=== PATIENT | male | born 1960 | race Caucasian/White ===

== ENCOUNTER 2023-06-28 15:03 | Outpatient (CLI) | payer OTHER, MEDICARE, SELFPAY ==
--- NOTE | 2023-06-28 15:09 | XR_ITS ---
WS: [id number] Exam: XR cervical spine 3V* [id number] Date/Time of Exam: 06/28/2023 3:20 PM Reason For Exam: chronic neck pain No fracture or dislocation. Mild spondylosis from C5-C7. Mild facet DJD at all levels. Normal paraspi nal soft tissue structures. The odontoid is intact. IMPRESSION: 1. Mild degenerative changes. No fracture or malalignment.
== END 2023-06-28 15:04 | disposition home or self-care (01) ==
LOC: RAD 15:06
PROVIDERS: Family Provider Family Medicine; PCP Family Medicine; Visit Provider Family Medicine
DX: M47.812 Spondylosis without myelopathy or radiculopathy, cervical region (principal); G89.29 Other chronic pain; Z13.6 Encounter for screening for cardiovascular disorders; E11.00 Type 2 diabetes mellitus with hyperosmolarity without nonketotic hyperglycemic-hyperosmolar coma (NKHHC); R35.1 Nocturia
CPT/HCPCS: 72040; 80053; 80061; 82043; 83036; 84153; 85025

== ENCOUNTER 2023-07-04 13:48 | Outpatient (CLI) | payer MEDICARE, SELFPAY ==
--- NOTE | 2023-07-04 14:15 | USCV_ITS ---
[facility] Age: 63 Gender: M : 1960 Exam Date: 07/04/2023 14:09 Ordering Phys: Cherelle Meneses DO Technologist: CT Exam Location: [facility] [place] Indication: pvd Risk Factors: Previous Vascular Surgery: RIGHT LEFT BP: 134.0 / 76.00 BP: 142.0/ 77.00 0 0 Waveform Velocity (cm/s) Velocity (cm/s) Waveform Iliac Prox 88.0 Triphasic Iliac Mid 87.0 Triphasic Iliac Distal 95.1 Triphasic MEDICAL DEVICE ASSEMBLER 102.9 Triphasic SFA Prox 81.6 Triphasic SFA Mid 75.2 Triphasic SFA Dist 80.7 Triphasic POP 74.2 Triphasic INSTRUMENTATION FITTER 46.6 Biphasic DPA 61.1 Biphasic ELISEO 0.8 FINDINGS Resting ELISEO of 0.8 on the left side. Mild diffuse plaque in the femoral and popliteal artery on the left side Biphasic waveforms in the dorsalis pedis and posterior tibial arteries CONCLUSIONS 1. Abnormal resting ELISEO on the left side, suggestive of mild peripheral arterial disease 2. Abnormal arterial Doppler waveforms suggesting infrapopliteal disease Dr Milagro Dent MD [facility] (Electronically Signed) Final Date: 07 July 2023 15:02 S
== END 2023-07-04 13:49 | disposition home or self-care (01) ==
LOC: RAD 13:48
PROVIDERS: Family Provider Family Medicine; PCP Family Medicine; Visit Provider Family Medicine
DX: I73.9 Peripheral vascular disease, unspecified (principal)
CPT/HCPCS: 93926

== ENCOUNTER → 2023-07-17 11:14 | Outpatient (BNVA) | payer MEDICARE, SELFPAY | PROVIDERS: Family Provider Family Medicine; PCP Family Medicine; Visit Provider Podiatrist Foot & Ankle Surgery | DX: L84 Corns and callosities (principal); E11.00 Type 2 diabetes mellitus with hyperosmolarity without nonketotic hyperglycemic-hyperosmolar coma (NKHHC); I73.9 Peripheral vascular disease, unspecified; Z79.84 Long term (current) use of oral hypoglycemic drugs; Z79.4 Long term (current) use of insulin | CPT/HCPCS: 99213 ==

== ENCOUNTER → 2023-08-09 11:25 | Outpatient (BNVA) | payer MEDICARE, SELFPAY | PROVIDERS: Family Provider Family Medicine; PCP Family Medicine; Visit Provider Family Medicine | DX: R80.9 Proteinuria, unspecified (principal); F32.A Depression, unspecified; I10 Essential (primary) hypertension; E11.00 Type 2 diabetes mellitus with hyperosmolarity without nonketotic hyperglycemic-hyperosmolar coma (NKHHC); Z86.69 Personal history of other diseases of the nervous system and sense organs; I73.9 Peripheral vascular disease, unspecified | CPT/HCPCS: 84156 ==

== ENCOUNTER 2023-09-04 14:10 | Outpatient (CLI) | payer MEDICARE, SELFPAY ==
--- NOTE | 2023-09-04 14:30 | US_ITS ---
WS: [id number] ULTRASOUND RENAL TECHNIQUE: Ultrasound examination of both kidneys. CLINICAL INFORMATION: Proteinuria COMPARISON: None. FINDINGS: Technically difficult study due to bowel gas. RIGHT: Right kidney is normal in size and appearance. Echogenicity: Normal. Cortical thickness: 1.1 cm; Normal. Hydronephrosis: None. Perinephric fluid: None. Right kidney measures: 10.1 cm x 6.0 cm x 4.5 cm. LEFT: Left kidney is normal in size and appearance. Echogenicity: Normal. Cortical thickness: 1.1 cm; Normal. Hydronephrosis: None. Perinephric fluid: None. Left kidney measures: 9.1 cm x 5.3 cm x 4.7 cm. Normal visualized aorta. Slightly prominent prostate measuring 3.6 x 2.9 cm. Urine distended bladder measuring 330 cc. Patient without urge to urinate. IMPRESSION: Technically difficult study due to bowel gas. 1. No hydronephrosis in either kidney. 2. Urine distended bladder. 3. Prominent prostate measuring 3.6 x 2.9 cm. Recommend correlation PSA. 4. No other suspicious findings.
== END 2023-09-04 14:11 | disposition home or self-care (01) ==
LOC: RAD 14:11
PROVIDERS: Family Provider Family Medicine; PCP Family Medicine; Visit Provider Family Medicine
DX: R80.9 Proteinuria, unspecified (principal)
CPT/HCPCS: 76770

== ENCOUNTER → 2023-09-05 15:15 | Outpatient (BNVA) | payer MEDICARE, SELFPAY | PROVIDERS: Family Provider Family Medicine; PCP Family Medicine; Referring Provider Family Medicine; Visit Provider Internal Medicine Cardiovascular Disease | DX: R07.9 Chest pain, unspecified; I45.10 Unspecified right bundle-branch block; I73.9 Peripheral vascular disease, unspecified; R94.31 Abnormal electrocardiogram [ECG] [EKG]; I10 Essential (primary) hypertension; E11.00 Type 2 diabetes mellitus with hyperosmolarity without nonketotic hyperglycemic-hyperosmolar coma (NKHHC); M54.2 Cervicalgia; G89.29 Other chronic pain; E78.5 Hyperlipidemia, unspecified | CPT/HCPCS: 93005; 99205 ==

== ENCOUNTER 2023-09-11 13:57 | Outpatient (CLI) | payer MEDICARE, SELFPAY ==
--- NOTE | 2023-09-11 14:15 | USCV_ITS ---
[facility] Age: 63 Gender: M : 1960 Exam Date: 09/11/2023 14:27 Ordering Phys: Milagro Dent MD ([email or web address]) Technologist: CT Exam Location: [facility] [place] Indication: pvd Risk Factors: Previous Vascular Surgery: RIGHT LEFT Waveform Velocity (cm/s) Velocity (cm/s) Waveform Triphasic Iliac Prox 93.0 Triphasic 94.0 Iliac Mid Triphasic 100.0 Iliac Distal Triphasic 96.0 PARA MACHINE OPERATOR Triphasic 69.5 SFA Prox Triphasic 89.0 SFA Mid Triphasic SFA Dist 62.0 Triphasic 71.0 POP Monophasic 90.0 COUNTERINTELLIGENCE/HUMINT SPECIALIST Monophasic 44.0 DPA 1.1 ELISEO FINDINGS Mild diffuse plaques at the iliac iliac, femoral, popliteal artery arteries on the right side. Resting ELISEO 1.1 on the right side CONCLUSIONS 1. Normal resting ELISEO on the right side 2. Minimal plaques at the iliac, femoral and popliteal arteries on the right side Dr Milagro Dent MD [facility] (Electronically Signed) Final Date: 12 September 2023 11:43 S
== END 2023-09-11 13:58 | disposition home or self-care (01) ==
LOC: RAD 13:58
PROVIDERS: PCP Family Medicine; Visit Provider Internal Medicine Cardiovascular Disease
DX: I70.201 Unspecified atherosclerosis of native arteries of extremities, right leg (principal)
CPT/HCPCS: 93926

== ENCOUNTER → 2023-09-17 09:44 | Outpatient (BNVA) | payer MEDICARE, SELFPAY | PROVIDERS: PCP Family Medicine; Visit Provider Podiatrist Foot & Ankle Surgery | DX: L60.3 Nail dystrophy (principal); L84 Corns and callosities; E11.00 Type 2 diabetes mellitus with hyperosmolarity without nonketotic hyperglycemic-hyperosmolar coma (NKHHC); I73.9 Peripheral vascular disease, unspecified; Z79.4 Long term (current) use of insulin; Z79.84 Long term (current) use of oral hypoglycemic drugs | CPT/HCPCS: 11055; 11721 ==

== ENCOUNTER 2023-11-16 07:09 | Outpatient (CLI) | payer MEDICARE, SELFPAY ==
[2023-11-16 07:19] VITALS: BMI 25.0
--- NOTE | 2023-11-16 07:32 | ECG_ITS ---
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 Interpretive Statements NAME OF STUDY: LEXISCAN SESTAMIBI STRESS TEST INDICATION: ABNORMAL EKG; PAD PROCEDURE: At the baseline, the EKG revealed sinus bradycardia with occasional PACs. Possible old septal [place]. Nonspecific T wave changes.. The baseline heart was 50 bpm with a blood pressue of 143/72 mm of Hg Lexiscan was infused over a period of 20 seconds. A total of 0.4 milligrams of Lexiscan was infused. The stress phase was continued for a total of 5 minutes. Heart rate at the end of the stress phase was 80 bpm with a blood pressure 127/57 mm of Hg. The EKG at the peak infusion revealed diffuse nonspecific ST-T changes in the inferior and anterolateral leads. Sestamibi was injected 20 seconds after the Lexiscan infusion. Heart rate at the end of the recovery phase was 73 bpm with a blood pressure of 144/60 mm of Hg. CONCLUSION: 1. No significant EKG changes with the LexiScan infusion 2. No LexiScan induced chest pain or cardiac arrhythmia 3. Normal blood pressure and heart rate response 4. Sestamibi/sestamibi perfusion scan pending; see separate report. Electronically Signed On 11-18-2023 19:23:59 CDT by Milagro Dent M.D. [email or web address].Citysearch/store/[id number]
--- NOTE | 2023-11-16 07:39 | NMCV_ITS ---
NM anjum perf SPECT r[facility]s* [id number] [facility] 63 Gender: M : 1960 Exam Date: 11/16/2023 07:55 Ordering Phys: Milagro Dent MD ([email or web address]) Technologist: VITALY Mcarthur Exam Location: [facility] Indications: CORONARY ANGIOPLASTY STATUS STRESS TEST Please see separate [facility] for full findings IMAGE PROTOCOL Rest/Stress 1 Lexiscan Day Radiopharmaceutical Dose (mCi) Administration Site Administered by Rest: Tc-99m 10.7 IV VITALY Mack Sestamibi Stress:Tc-99m 32.4 IV VITALY Mack Sestamibi Rest: 16-Nov-2023 60 Discovery 630 Stress: 16-Nov-2023 30 Discovery 630 0.4mg Lexiscan. Images obtained in supine and prone position. SPECT RESULTS Technical Quality: Excellent Raw Data Analysis: Normal Image Corrections: No attenuation or motion correction applied Summed Stress Score: 9 Summed Rest Score: 0 Summed Difference Score: 9 PERFUSION FINDINGS Moderate area of moderately decreased tracer uptake involving the mid anteroseptal, apical septal, apical anterior, apical inferior and LV apex. Significant reversibility was noted in the segments, at rest FUNCTIONAL RESULTS (calculated via Gated SPECT) Stress Image LV EF (%): 65 Stress EDV (mL):117 TID: 1.03 Stress ESV (mL):41 FUNCTIONAL FINDINGS: Segmental wall motion analysis revealing no gross wall motion abnormalities IMPRESSIONS 1. Myocardial perfusion imaging revealing moderate area of reversible defect involving the anterior, anteroseptal and apical regions suggesting ischemia in the distribution of the left anterior descending artery. 2. Normal LV ejection fraction of 65%. 3. LV wall motion analysis revealing no gross wall motion abnormalities. 4. Normal LV volume No similar previous studies are available for comparison Dr Milagro Dent MD [facility] (Electronically Signed) Final Date: 16 Nov 2023 19:45 S
[2023-11-16] MEDS: regadenoson 0.4 Mg/5 ml Syringe 0.400000000000000022 MG IVP (08:35)
[2023-11-16 08:50] VITALS: BP 143/86; PULSE 73
== END 2023-11-16 07:10 | disposition home or self-care (01) ==
PROVIDERS: PCP Family Medicine; Visit Provider Internal Medicine Cardiovascular Disease
DX: Z98.61 Coronary angioplasty status (principal)
CPT/HCPCS: 36415; 78452; 80053; 83036; 93017; 96374; A9500; J2785

== ENCOUNTER → 2023-11-19 11:04 | Outpatient (BNVA) | payer MEDICARE, SELFPAY | PROVIDERS: PCP Family Medicine; Visit Provider Podiatrist Foot & Ankle Surgery | DX: L60.3 Nail dystrophy (principal); L84 Corns and callosities; E11.00 Type 2 diabetes mellitus with hyperosmolarity without nonketotic hyperglycemic-hyperosmolar coma (NKHHC); I73.9 Peripheral vascular disease, unspecified; Z79.4 Long term (current) use of insulin; Z79.84 Long term (current) use of oral hypoglycemic drugs | CPT/HCPCS: 11055; 11721 ==

== ENCOUNTER → 2023-11-20 13:00 | Outpatient (BNVA) | payer MEDICARE, SELFPAY | PROVIDERS: PCP Family Medicine; Visit Provider Internal Medicine Cardiovascular Disease | DX: R94.39 Abnormal result of other cardiovascular function study (principal); I10 Essential (primary) hypertension; E11.9 Type 2 diabetes mellitus without complications; Z79.4 Long term (current) use of insulin | CPT/HCPCS: 99215 ==

== ENCOUNTER 2023-11-29 12:38 | Emergency (ER) | payer MEDICARE, SELFPAY ==
--- NOTE | 2023-11-29 12:43 | XR_ITS ---
WS: [id number] Portable AP upright chest, 11/29/2023 Clinical Data: weakness Comparison: None. Findings: No nodules, masses or effusions are seen. The heart is normal. The pulmonary vascularity is not increased. No pneumonia or pneumothorax is seen. XR/XR chest 1V portable [id number] Impression: Negative chest.
--- NOTE | 2023-11-29 12:43 | CT_ITS ---
WS: [id number] CT HEAD TECHNIQUE: Noncontrast CT of the head obtained from the skullbase to the vertex. CLINICAL INFORMATION: Encephalopathy, altered mental status COMPARISON: None. DLP: 1069.[address] scans at [facility] use at least one of these dose optimization techniques: automated e xposure control; mA and/or kV adjustment per patient size (includes targeted exams where dose is matc hed to clinical indication); or iterative reconstruction. FINDINGS: No evidence of intracranial hemorrhage or mass effect. Ventricular system and basal cisterns are wilkes nt. Moderate small vessel changes with moderate parenchymal volume loss. No extra-axial fluid collect ions. No evidence of mass or mass effect. 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 LEFT frontal craniotomy. Paranasal sinuses and mastoid air cells are well aerated. .Normal visualized soft tissues. CT/CT head wo con* [id number] IMPRESSION: 1. No evidence of intracranial hemorrhage or mass effect. 2. LEFT frontal craniotomy with underlying encephalomalacia in the parasagitta l LEFT frontal lobe. Expected dilatation LEFT lateral ventricle. 3. No acute intracranial findings.
--- NOTE | 2023-11-29 12:44 | ECG_ITS ---
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 Measurements Intervals [place] Rate: 71 P: 29 SD: 166 QRS: 9 QRSD: 98 T: 40 QT: 377 QTc: 410 Interpretive Statements SINUS RHYTHM NONSPECIFIC T-WAVE ABNORMALITY Compared to ECG 09/05/2023 15:26:44 Incomplete right bundle-branch block no longer present Possible ischemia no longer present T-wave abnormality still present Electronically Signed On 11-30-2023 0:05:06 CDT by Milagro Dent M.D. [email or web address].[employer]/store/OM/[id number]
[2023-11-29 12:46] VITALS: BP 158/71; PULSE 76; RESP 16; TEMP 36.6; O2SAT 99
--- NOTE | 2023-11-29 12:51 | PC.NURSE ---
Glucose via Fingerstick: 414, Dr. Steward notified.
[2023-11-29 12:54] LABS: Glucose Point of Care 414 mg/dL (70-110)
[2023-11-29] MEDS: sodium chloride 0.9% 1,000 ML 999 ML IV (12:54)
--- NOTE | 2023-11-29 12:55 | W.ED.GENADLT ---
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 Said they helped him up and he came back to normal shortly after. He says he does not remember the event. EMS reports that he was hyperglycemic with a blood glucose of 490 at home. He says he feels okay now. No chest pain. No shortness of breath. No focal motor deficits. No altered mental status at this point. No abdominal pain. No nausea or vomiting. Review of Systems Narrative: Constitutional symptoms: Negative except as documented in HPI. Skin symptoms: Negative except as documented in HPI. Eye symptoms: Negative except as documented in HPI. ENMT symptoms: Negative except as documented in HPI. Respiratory symptoms: Negative except as documented in HPI. Cardiovascular symptoms: Negative except as documented in HPI. Gastrointestinal symptoms: Negative except as documented in HPI. Genitourinary symptoms: Negative except as documented in HPI. Musculoskeletal symptoms: Negative except as documented in HPI. Neurologic symptoms: Negative except as documented in HPI. Psychiatric symptoms: Negative except as documented in HPI. Endocrine symptoms: Negative except as documented in HPI. 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 Skin: Warm, dry. Head: Normocephalic, atraumatic. Neck: Supple, trachea midline. Eye: Extraocular movements are intact. Ears, nose, mouth and throat: Tacky oral mucosa Cardiovascular: Regular, Normal peripheral perfusion. Respiratory: Lungs are clear to auscultation, respirations are non-labored, breath sounds are equal, Symmetrical chest wall expansion. Gastrointestinal: Soft, Nontender, Non distended, Normal bowel sounds. Musculoskeletal: Normal ROM, no deformity. Neurological: Alert and oriented, No focal neurological deficit observed. Psychiatric: Cooperative, appropriate mood & affect. Course Vital Signs: Vital signs: Vital Signs Temperature 97.9 F 11/29/23 12:46 Pulse Rate 70 11/29/23 15:30 Respiratory Rate 17 11/29/23 15:30 Blood Pressure 156/77 11/29/23 15:30 Pulse Oximetry 99 11/29/23 15:30 Oxygen Delivery Me thod Room Air 11/29/23 15:30 MDM - General Adult Medical Decision Making Medical decision making: Differential diagnosis for patient presenting with generalized weakness including but not limited to and based on the above HPI, review of systems and physical exam: Sepsis. Dehydration. Renal failure. Electrolyte abnormalities. Anemia. Congestive heart failure. Hypotension. Coronary syndrome. Hepatitis. Cirrhosis. Infections such as pneumonia, urinary tract infection, [place] illness, Cellulitis, Viral infections including influenza and Covid-19. Workup: labwork and lab/exam driven imaging ordered to evaluate, rule in and rule out above pathologies. EKG: Time 1258 rate 71. Normal sinus rhythm, No ST-T changes, no ectopy, normal MN & QRS intervals, This was reviewed and interpreted by myself the ER physician at 1:00 Chest x-ray: No acute process. No infiltrate. No pneumothorax. This was reviewed and interpreted by myself the ER physician. CT head: Chronic changes: LEFT frontal craniotomy with underlying encephalomalacia in the parasagittal LEFT frontal lobe. Expected dilatation LEFT lateral ventricle.No acute intracranial process. no intracranial hemorrhage, no evidence of infarct. no evidence of acute fracture.this was reviewed and interpreted by myself the emergency room physician. I also reviewed the radiology report. Lab Review: Laboratory results were reviewed and interpreted by myself the emergency room physician. Initial blood glucose was 417 here. White count is 5. Hemoglobin is 14. Blood glucose was 461 on his BMP. BUN and creatinine are 27 and 1 which is stable with his previous measurements. I reviewed the patient's medical record. Reexamination: Patient has remained stable while here. He is alert and oriented on repeat exam. No increased work of breathing. No altered mental status. He is had no dysrhythmias. Assessment and plan: Hyperglycemia Dehydration Near syncope -Normal saline bolus and IV insulin. Sugars improved. Workup otherwise negative. - Discharged home - Discussed plan with patient. Answered any questions. - Evaluation and treatment of this problem were appropriate in the emergency setting. Lab Data 11/29/23 12:30 11/29/23 12:30 Radiology Impressions Chest X-Ray 11/29/23 12:43 Impression: Negative chest. Head CT 11/29/23 12:43 IMPRESSION: 1. No evidence of intracranial hemorrhage or mass effect. 2. LEFT frontal craniotomy with underlying encephalomalacia in the parasagittal LEFT frontal lobe. Expected dilatation LEFT lateral ventricle. 3. No acute intracranial findings. Laboratory Results WBC 5.13 10^3/uL (3.29-11.43) 11/29/23 12:30 RBC 4.59 10^6/uL (3.85-5.65) 11/29/23 12:30 Hgb 14.00 g/dL (11.27-16.99) 11/29/23 12:30 Hct 40.9 % (37-53) 11/29/23 12:30 MCV 89.1 fl (82-101) 11/29/23 12:30 MCH 30.5 pg (27-33) 11/29/23 12:30 MCHC 34.2 g/dL (30-55) 11/29/23 12:30 RDW 13.7 % (12.1-15.1) 11/29/23 12:30 Plt Count 218 10^3/cmm (157-399) 11/29/23 12:30 MPV 10.9 fL (7.4-10.4) H 11/29/23 12:30 Neut % (Auto) 70.7 % 11/29/23 12:30 Lymph % (Auto) 19.3 % 11/29/23 12:30 [place] % (Auto) 7.0 % 11/29/23 12:30 Eos % (Auto) 1.8 % 11/29/23 12:30 Baso % (Auto) 1.0 % 11/29/23 12:30 Neut # (Auto) 3.63 10^3/uL (1.8-7.7) 11/29/23 12:30 Lymph # (Auto) 1.0 10^3/uL (0.8-4.8) 11/29/23 12:30 [place] # (Auto) 0.4 10^3/uL (0.2-0.9) 11/29/23 12:30 Eos # (Auto) 0.1 10^3/uL (0.0-0.8) 11/29/23 12:30 Baso # (Auto) 0.1 10^3/uL (0.0-0.1) 11/29/23 12:30 Nucleated RBC % (auto) 0 % 11/29/23 12:30 Nucleated RBCs # 0.0 /100WBC 11/29/23 12:30 Specimen Type Arterial 11/29/23 12:57 Sample Site Brachial, left 11/29/23 12:57 ABG pH 7.34 (7.35-7.45) L 11/29/23 12:57 ABG pCO2 45.4 mmHg (35-45) H 11/29/23 12:57 ABG pO2 84.8 mmHg (80.0-100.0) 11/29/23 12:57 ABG PO2/FiO2 Ratio 0 11/29/23 12:57 ABG HCO3 24.2 mmol/L (22-26) 11/29/23 12:57 ABG O2 Saturation 97.0 11/29/23 12:57 ABG Base Excess -1.8 mmol/L (-2.0-2.0) 11/29/23 12:57 Darryl Test N/a 11/29/23 12:57 A-a O2 Gradient 1.0 mmHg (5-10) L 11/29/23 12:57 Hematocrit 37.7 % (42-52) L 11/29/23 12:57 Hgb O2 Saturation 94.8 % (95-100) L 11/29/23 12:57 Carboxyhemoglobin 1.3 %THgb (0.4-20.1) 11/29/23 12:57 Methemoglobin 1.0 % (0.4-1.5) 11/29/23 12:57 Total Hemoglobin 12.3 g/dL (14-18) L 11/29/23 12:57 Sodium 138.0 mmol/L (131-143) 11/29/23 12:57 Potassium 3.7 mmol/L (3.5-5.0) 11/29/23 12:57 Glucose 443.0 mg/dL (70-115) H 11/29/23 12:57 Ionized Calcium 1.2 mmol/L (1.1-1.4) 11/29/23 12:57 O2 Delivery Device Room air 11/29/23 12:57 FiO2 21.0 % 11/29/23 12:57 Ceramics Technician ID Amh 11/29/23 12:57 Sodium 134 mmol/L (136-145) L 11/29/23 12:30 Potassium 4.4 mmol/L (3.5-5.1) 11/29/23 12:30 Chloride 98 mmol/L (98-107) 11/29/23 12:30 Carbon Dioxide 25 mmol/L (22-29) 11/29/23 12:30 Anion Gap 15.4 (5-19) 11/29/23 12:30 BUN 27 mg/dL (8-23) H 11/29/23 12:30 Creatinine 1.0 mg/dL (0.7-1.2) 11/29/23 12:30 GFR Calculation 75.5 mL/min (90-130) L 11/29/23 12:30 Glucose 461 mg/dL (65-115) H 11/29/23 12:30 POC Glucose 363 mg/dL (70-110) H 11/29/23 14:42 Calculated Osmolality 303 mOsm/kg (285-295) H 11/29/23 12:30 Lactic Acid 1.2 mmol/L (0.5-2.2) 11/29/23 14:00 Calcium 9.3 mg/dL (8.5-10.5) 11/29/23 12:30 Total Bilirubin 0.3 mg/dL (0.15-1.2) 11/29/23 12:30 AST 10 U/L (0-40) 11/29/23 12:30 ALT 11 U/L (0-41) 11/29/23 12:30 Alkaline Phosphatase 118 U/L (40-130) 11/29/23 12:30 Troponin T Baseline 25 ng/L (0-15) H 11/29/23 12:30 Troponin T 120 Minute 23.95 ng/L (0-15) H 11/29/23 14:00 Delta Troponin T -1.05 ABS# (0-10) L 11/29/23 14:00 C-Reactive Protein 3.0 mg/L (0.0-4.9) 11/29/23 12:30 Total Protein 7.1 g/dL (6.6-8.7) 11/29/23 12:30 Albumin 4.3 g/dL (3.5-5.2) 11/29/23 12:30 Globulin 2.8 g/dL (1.3-4.6) 11/29/23 12:30 Urine Color Light yellow (Yellow) 11/29/23 15:05 Urine Appearance Clear (CLEAR) 11/29/23 15:05 Urine pH 5 (5-7) 11/29/23 15:05 Ur Specific [place] 1.010 (1.005-1.030) 11/29/23 15:05 Urine Protein Neg (Negative) 11/29/23 15:05 Urine Glucose (UA) 4+ (Normal) H 11/29/23 15:05 Urine Ketones Negative (Negative) 11/29/23 15:05 Urine Blood Neg (Negative) 11/29/23 15:05 Urine Nitrate Negative (Negative) 11/29/23 15:05 Urine Bilirubin Neg (Negative) 11/29/23 15:05 Urine Urobilinogen Norm mg/dL (Negative) 11/29/23 15:05 Ur Leukocyte Esterase Negative (Negative) 11/29/23 15:05 Urine RBC 0-4 /hpf (0-2) H 11/29/23 15:05 Urine WBC None /hpf (0-5) 11/29/23 15:05 Ur Squamous Epith Cells None /hpf (0-5) 11/29/23 15:05 Amorphous Sediment Not Reportable 11/29/23 15:05 Urine Bacteria None /hpf (NONE) 11/29/23 15:05 Urine Mucus None /hpf 11/29/23 15:05 Urine Sperm 1+ /hpf 11/29/23 15:05 Ethyl Alcohol < 10 mg/dL (0-10) 11/29/23 12:30 Serum Ketones Negative (Negative) 11/29/23 12:30 All radiology interpretation(s) finalized by discharge Discharge Plan Discharge Patient Disposition: Home Clinical Impression: Near syncope, Dehydration, Hyperglycemia Condition: Stable Prescriptions: No Action citalopram 20 mg tablet 20 mg PO DAILY Qty: 90 0RF lisinopril 10 mg tablet 10 mg PO DAILY Qty: 90 1RF atorvastatin 40 mg tablet 40 mg PO DAILY Qty: 90 1RF metformin 500 mg tablet extended release 24 hr 1,000 mg PO BID 90 Days Qty: 360 1RF oxcarbazepine 300 mg tablet 300 mg PO BID Qty: 180 1RF Trulicity 3 mg/0.5 mL pen injector 3 mg SUBCUT .weekly Qty: 2 3RF Levemir FlexPen 100 unit/mL (3 mL) insulin pen See Rx Instructions .ROUTE .COMPLEX Qty: 28.8 0RF Dose Instruction: inject 16 units SUBCUTANEOUSLY TWICE DAILY FOR 90 DAYS Rx Instructions: inject 16 units SUBCUTANEOUSLY TWICE DAILY FOR 90 DAYS aspirin 81 mg tablet,delayed release (DR/EC) 81 mg PO QAM Discharge Orders: Discharge ED (Routine); Ordered 11/29/23 Ordered By: Ketty Steward Referrals: Cherelle Meneses DO [Primary Care Provider] - 4-7 days Discharge Diet: Usual diet Discharge Activity: Increase activity as tolerated Patient Instructions: Hyperglycemia, Dehydration (ED), Near Syncope (ED) Activity Restrictions/Additional Instructions: Thank you for choosing [facility] for your healthcare needs today. Please realize this is an emergency room and that we are providing you with a medical screening exam and this may not be complete and all inclusive of all the testing and or work up that you may need to determine your ailment or severity of your illness. You have been screened and evaluated and felt safe for discharge. Health conditions do change or evolve sometimes and as such it is important that you follow up with your Primary Doctor to be re checked, 3-5 days is a general good time frame for follow up. You are always welcome to return to the ED for re assessment if your symptoms are worsening or you have new concerns Coding Level of Care Code ED Shell Sieve Operator for Yana Alcaraz
[2023-11-29 13:03] LABS: Basophils # 0.1 10^3/uL (0.0-0.1); Eosinophils # 0.1 10^3/uL (0.0-0.8); Eosinophils % 1.8 %; Hematocrit 40.9 % (37-53); Lymphocytes % 19.3 %; Mean Corpuscular HGB Conc 34.2 g/dL (30-55); Mean Corpuscular Hemoglobin 30.5 pg (27-33); Mean Corpuscular Volume 89.1 fl (82-101); Mean Platelet Volume 10.9 fL (7.4-10.4); Monocytes # 0.4 10^3/uL (0.2-0.9); Neutrophils # 3.63 10^3/uL (1.8-7.7); Neutrophils % 70.7 %; Nucleated Red Blood Cells % 0 %; Platelet Count 218 10^3/cmm (157-399); Red Blood Count 4.59 10^6/uL (3.85-5.65); Red Cell Distribution Width 13.7 % (12.1-15.1); White Blood Count 5.13 10^3/uL (3.29-11.43)
[2023-11-29 13:09] LABS: ABG PCO2 45.4 mmHg (35-45); ABG PH Result 7.34 (7.35-7.45); Arterial Blood Gas Hematocrit 37.7 % (42-52); Base Excess ABG -1.8 mmol/L (-2.0-2.0); Blood Gas Operator Identificat AMH; Blood Gas Sample Site Brachial, left; Blood Gas Sample Type Arterial; Carboxyhemoglobin 1.3 %THgb (0.4-20.1); HCO3 ABG 24.2 mmol/L (22-26); HGB O2 Sat 94.8 % (95-100); Ionized Calcium Level - ABG 1.2 mmol/L (1.1-1.4); Oxygen Device ROOM AIR; PO2 ABG 84.8 mmHg (80.0-100.0); PO2 FiO2 Ratio Arterial Blood 0; Potassium Level - ABG 3.7 mmol/L (3.5-5.0); Total Hemoglobin 12.3 g/dL (14-18)
[2023-11-29 13:12] LABS: Ketone (Acetest) Serum Negative (Negative)
[2023-11-29 13:23] LABS: Alanine Aminotransferase 11 U/L (0-41); Albumin Level 4.3 g/dL (3.5-5.2); Alkaline Phosphatase 118 U/L (40-130); Anion Gap 15.4 (5-19); Aspartate Amino Transferase 10 U/L (0-40); Blood Urea Nitrogen 27 mg/dL (8-23); Calcium 9.3 mg/dL (8.5-10.5); Carbon Dioxide 25 mmol/L (22-29); Chloride 98 mmol/L (98-107); Creatinine Clr Calc Pharmacy 70.5495; Globulin 2.8 g/dL (1.3-4.6); Glomerular Filtration Rate 75.5 mL/min (90-130); Glucose 461 mg/dL (65-115); Osmolality Calculated 303 mOsm/kg (285-295); Potassium 4.4 mmol/L (3.5-5.1); Sodium 134 mmol/L (136-145); Total Bilirubin 0.3 mg/dL (0.15-1.2); Total Protein 7.1 g/dL (6.6-8.7)
[2023-11-29 13:24] LABS: Troponin(5th) Baseline 25 ng/L (0-15)
[2023-11-29 13:25] LABS: Alcohol Level < 10 mg/dL (0-10)
[2023-11-29 14:33] LABS: Troponin 5 2HR 23.95 ng/L (0-15)
[2023-11-29 14:34] LABS: Lactic Sepsis W/Reflex 1.2 mmol/L (0.5-2.2); Troponin 5 2HR Delta -1.05 ABS# (0-10)
[2023-11-29 14:35] VITALS: BP 172/80; PULSE 65; RESP 14; O2SAT 98
--- NOTE | 2023-11-29 14:43 | PC.NURSE ---
Repeat glucose: [address] Steward notified
--- NOTE | 2023-11-29 14:44 | ECG_ITS ---
[facility] Test Date: 2023-11-29 Pat Name: Akhil Galloway Department: Room: Gender: Male Executive Sales Assistant: : 1960 Requested By: Ketty Anderson Order Number: [id number] Libby MD: Milagro Dent M.D. Measurements Intervals [place] Rate: 65 P: 31 MT: 158 QRS: 11 QRSD: 95 T: 38 QT: 386 QTc: 402 Interpretive Statements SINUS RHYTHM SEPTAL MYOCARDIAL INFARCTION , OF INDETERMINATE AGE [40+ ms Q WAVE IN V1/V2] Compared to ECG 11/29/2023 12:58:23 Myocardial infarct finding now present T-wave abnormality no longer present Electronically Signed On 11-30-2023 0:34:53 CDT by Milagro Dent M.D. [email or web address]
[2023-11-29 14:45] LABS: Glucose Point of Care 363 mg/dL (70-110)
[2023-11-29 15:18] LABS: Protein Urine Neg (Negative); Urine Appearance Clear (CLEAR); Urine Color Light yellow (Yellow); pH Urine 5 (5-7)
[2023-11-29] MEDS: insulin regular-human 100 units/1 mL 10 UNIT IVP (15:18)
[2023-11-29 15:19] LABS: Bilirubin Urine Neg (Negative); Blood Urine Neg (Negative); Glucose Urine UA 4+ (Normal); Ketones Urine Negative (Negative); Leukocyte Esterase Urine Negative (Negative); Nitrate Urine Negative (Negative); Urobilinogen Urine Norm (Negative)
[2023-11-29 15:20] LABS: Add Urine Culture? No; RBC Urine 0-4 /hpf (0-2); Sperm Urine 1+ /hpf
[2023-11-29 15:30] VITALS: BP 156/77; PULSE 70; RESP 17; O2SAT 99
[2023-11-29 15:53] LABS: Glucose Point of Care 281 mg/dL (70-110)
== END 2023-11-29 16:01 | disposition home or self-care (01) ==
PROVIDERS: Emergency Provider Emergency Medicine; PCP Family Medicine
DX: E11.65 Type 2 diabetes mellitus with hyperglycemia (principal); R55 Syncope and collapse; E86.0 Dehydration; Z79.4 Long term (current) use of insulin; Z79.84 Long term (current) use of oral hypoglycemic drugs
CPT/HCPCS: 36415; 36416; 36600; 70450; 71045; 80051; 80053; 80307; 81001; 82009; 82330; 82805; 82962; 83605; 84484; 85025; 86140; 87040; 93005; 96361; 96374; 99285; J1815; J7030

== ENCOUNTER 2023-12-03 07:12 | Outpatient (CLI) | payer MEDICARE, SELFPAY ==
[2023-11-26 09:11] LABS: Basophils # 0.1 10^3/uL (0.0-0.1); Basophils % 0.9 %; Eosinophils # 0.1 10^3/uL (0.0-0.8); Eosinophils % 2.3 %; Hematocrit 41.5 % (37-53); Lymphocytes # 1.5 10^3/uL (0.8-4.8); Lymphocytes % 26.7 %; Mean Corpuscular HGB Conc 33.7 g/dL (30-55); Mean Corpuscular Hemoglobin 30.8 pg (27-33); Mean Corpuscular Volume 91.4 fl (82-101); Mean Platelet Volume 10.8 fL (7.4-10.4); Monocytes # 0.4 10^3/uL (0.2-0.9); Monocytes % 7.5 %; Neutrophils # 3.59 10^3/uL (1.8-7.7); Neutrophils % 62.3 %; Nucleated Red Blood Cells % 0 %; Platelet Count 234 10^3/cmm (157-399); Red Blood Count 4.54 10^6/uL (3.85-5.65); White Blood Count 5.76 10^3/uL (3.29-11.43)
[2023-11-26 09:23] LABS: INR 0.89 (0.8-1.2)
[2023-11-26 09:33] LABS: Anion Gap 14.1 (5-19); Blood Urea Nitrogen 28 mg/dL (8-23); Calcium 8.7 mg/dL (8.5-10.5); Carbon Dioxide 28 mmol/L (22-29); Chloride 101 mmol/L (98-107); Glomerular Filtration Rate 85.2 mL/min (90-130); Glucose 321 mg/dL (65-115); Osmolality Calculated 306 mOsm/kg (285-295); Potassium 4.1 mmol/L (3.5-5.1); Sodium 139 mmol/L (136-145)
[2023-12-03] VITALS (13 sets, daily range): BP systolic 112–159; BP diastolic 62–112; PULSE 67–88; RESP 12–18; TEMP 36.5–37; O2SAT 95–99; BMI 23.5
--- NOTE | 2023-12-03 07:25 | XACV_ITS ---
Exam Room: 2 Ht: 170 cm Wt: 68 kg BSA: 1.80 m2 Gender: Male : 1960 Any Known Allergies: Penicillins Exam Priority: Routine Procedure(s): Procedure Description: Diagnostic procedure Procedure Description: PCI procedure Procedure Description: Left Heart Catheterization Procedure Description: Left ventriculography Procedure Description: Drug Eluting Coronary Stent Procedure Description: PTCA Procedure Description: Miscellaneous Procedure Description: ACT Procedure Description: Coronary Angiography Filipe LIN; Diagnostic Cath Status: Elective Diagnostic Findings * The left main is a medium caliber vessel with minimal intimal irregularities. No significant stenotic lesions were noted. * The left anterior descending artery is a medium caliber vessel which was found to have mild diffuse disease in the proximal segment. Mild to moderate coronary calcification also was noted. The artery appears to be totally occluded right after the takeoff of the first diagonal branch. The mid and the distal LAD was found to have diffuse disease and was found to be filling up retrogradely through collaterals from the right coronary artery. The first diagonal branch is a medium caliber vessel which was found to have around 70% lesion just before his bifurcation. * The left circumflex artery is a small to medium caliber vessel which was found to be totally occluded after giving of a small obtuse marginal branch which also was found to have severe diffuse disease. * The intermedius artery appears to have 30 to 40% diffuse irregular narrowing in the proximal segment. The distal artery was found to have mild diffuse disease. * The right coronary artery is a medium to large caliber dominant vessel which was found to have diffuse intimal irregularities in the proximal segment. Towards the distal end of the mid segment, there was a tubular narrowing of around 70 to 80%. The PDA branch was found to have around 60% stenosis in the midsegment. The PLV branch is known to have mild diffuse disease. PCI Status: Elective PCI Indication: Other Interventional Findings * Procedure detail: * We engaged * RCA with JR4 guide catheter. IV heparin was administered to monitor anticoagulation. 0.014 run-through guidewire was used to cross the stenosis and was put in distal vessel. We * predilated the stenosis with 3.0 x 12 mm semicompliant balloon. This was followed by placement of 3.5 x 15 mm resolute Eric drug-eluting stent. We postdilated the stent with 3.75 x 8 mm NC balloon * . At this time final angiogram was performed that showed excellent stent expansion, no residual stenosis and CARLOS-3 flow. We then turned attention to diagonal artery stenosis. Left main artery was engaged with XB 3.0 guide catheter. Run-through wire was used to cross the stenosis. We predilated the stenosis with 2.25 x 12 mm NC balloon. This was followed by placement of 2.5 x 15 mm resolute [place] drug-eluting stent. At this time final angiogram was performed that showed excellent stent expansion, no residual stenosis and CARLOS-3 flow. Guidewire and guide catheter were removed. 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 * Distal Right Coronary Artery: 70% stenosis treated with a AB TREK 3.00X12 RX BALLOON, MDT R ERIC 3.5X15 SOFIA, and MDT NC EUPHORA RX [id number] BALLOON. 0% residual stenosis, CARLOS: 3 flow. * 1st Diagonal: 70% stenosis treated with a MDT NC EUPHORA RX [id number] BALLOON, and MDT iSncere ERIC 2.5X15 SOFIA. 0% residual stenosis, CARLOS: 3 flow. Conclusions 1. 63-year-old white male with history of hypertension, type 2 diabetes, dyslipidemia and peripheral artery disease, presenting with complaints of chest pain/tightness/shortness of breath. He had an abnormal Myocardial perfusion imaging suggesting ischemia in distribution on the left and descending artery. In view of the patient's ongoing symptoms, in order to further evaluate his coronary status, a cardiac catheterization was recommended. Patient underwent left heart catheterization with left and right coronary angiogram and LV angiogram today. The findings are as follows. 2. Total occlusion of the left and descending artery after the takeoff of the first diagonal. Total occlusion of the nondominant circumflex artery after the takeoff of a small severely diseased first obtuse marginal branch. High-grade lesion in the dominant right coronary artery at the mid to distal segment. Mild to moderate diffuse disease in the other vessels. Normal LV ejection fraction. Slightly elevated LVEDP. 3. I reviewed and discussed the cardiac catheterization data with the Dr. Pickard. Based on the angiographic findings, it was thought to be appropriate to consider PCI of the diagonal and the RCA lesions. This was discussed with the patient's family as well. Dr. Pickard took over further management of this patient at this point. 4. Severe distal RCA stenosis s/p successful revascularization with 1 stent. Severe diagonal artery stenosis s/p successful revascularization with 1 stent. 5. Distal Right Coronary Artery was treated with a Balloon, Drug Eluting Stent, and Balloon. 6. 1st Diagonal was treated with a Balloon, and Drug Eluting Stent. Recommendations * Dual antipletelet therapy with aspirin and plavix for atleast 1 year. * high intensity statin therapy. * Outpatient cardiology follow up in 4 weeks. Interventional RX Recommendation: PCI w/o planned CABG Diagnostic RX Recommendation: PCI w/o planned CABG Anticoagulation: Heparin Ventriculography Ejection Fraction: 60.0 % LV EDP: 16 mmHg Left Ventriculography Findings: * The LV gram was performed in the MICHAEL projection. The LV cavity appears to be normal size. The LV ejection fraction was around 60%. There was a mild hypokinesia of the LV apex. No filling defects were noted. Pressures Phase:Rest AO : 99 / 56 ( 76 ) @ 10:02:00 AM 90 / 69 ( 80 ) @ 10:03:00 AM 120 / 89 ( 105 ) @ 10:09:00 AM 156 / 81 ( 113 ) @ 10:17:00 AM 157 / 80 ( 113 ) @ 10:17:00 AM 219 / 72 ( 125 ) @ 10:25:00 AM 113 / 77 ( 95 ) @ 10:29:00 AM 114 / 76 ( 94 ) @ 10:34:00 AM 66 / 41 ( 53 ) @ 10:38:00 AM 147 / 86 ( 111 ) @ 10:46:00 AM 140 / 88 ( 111 ) @ 10:48:00 AM LV : 153 / -10 / 16 @ 10:16:00 AM 160 / -1 / 23 @ 10:16:00 AM 160 / -1 / 23 @ 10:17:00 AM Valves Phase:DefaultPhase AV : 3.0 @ 10:06:09 AM AV Mean Gradient: 7.0 @ 10:06:09 AM 7.0 @ 10:06:09 AM Clinical Evaluation EBL: 5mL-10mL Procedural Details Procedure Consent Obtained. Current Diagnosis : Chest Pain. Pre-Procedure Time Out. Identified patient by full name and date of as verbalized by the patient/guarantor. Does the consent match the physician's order: Yes. Accurate & Complete Informed Consent: Yes. Inpatient/Outpatient History & Physical on Chart: Yes. If H&P is completed, is and addenduem needed: No; If yes, is the addendum complete: N/A. Visualize and Verify Site with Patient/Guarantor: N/A. Relevant Radiology Images available: Yes. Pre-op teaching completed and patient verbalized understanding. The risks, benefits, and alternatives of sedation and/or procedure were discussed by physician. The patient agrees to continue. Procedure started. Physician arrived. [facility] Clinical Fraility Score: 4: Vulnerable. Courier Delivery Driver Indications: Worsening Angina. Chest Pain Symptom Assessment: Typical Angina Symptoms. Correct patient, site and procedure confirmed by cath team. Current diagnosis: Chest Pain. PERRLA. Strong, equal hand management planner bilaterally. Lungs clear x 5 lobes. IV Site on Arrival: 20 gauge in the right anticubital. IV Fluids: 0.9% NaCl at KVO. 0 mL infused prior to labor and delivery registered nurse. Pre Procedural Pulses: bilateral dorsalis pedis was 2+. Pre Procedural Pulses: right posterior tibial was 2+. Pre Procedural Pulses: left posterior tibial was Doppled. Pre Procedural Pulses: bilateral radial was 3+. Oxygen started at 2liters/min via nasal canula. right groin was prepped with chloroprep then draped in the usual sterile fashion. right radial was prepped with chloroprep then draped in the usual sterile fashion. Baseline sample Acquired. HR: 82 BPM. Physician scrubbed in. Immediate Pre-Procedure Time Out. Correct Patient: Yes; Correct Procedure: Yes; Correct Site: Yes; Correct Patient Position: Yes; Correct Supplies: Yes; Dried Flammable Prep: Yes; Blood Products Available: N/A;. Lidocaine 1% infiltrated to the right radial. Arterial access obtained. A 5 australian Justyn catheter in over wire. Multiple views taken of left coronary artery. Catheter redirected to the RCA. Catheter removed over the exchange wire. A 5 australian JR4 catheter in over wire. Multiple views taken of right coronary artery. Dr. Pickard arrived to review films. Catheter removed over the exchange wire. A 5 australian Angled Pig catheter in over wire. EDP Sample taken: LV 153/-11,16; HR: 76 BPM; SpO2: 99%. LV gram performed in MICHAEL @ 10 mL/second for a total of 30 mL. EDP Sample taken: LV 160/-2,23; HR: 75 BPM; SpO2: 99%. Pullback taken: LV 160/-2,23; AO 156/81(113); Mean: 7mmHg, Peak to Peak: 3mmHg, SEP: 21sec/min; HR: 75 BPM; SpO2: 99%. Catheter removed over the exchange wire. Physician scrubbed out. Inventory is CRD 6FR JR [address] Pickard scrubbed in. 6 australian JR 4 guide catheter was inserted over the wire. Runthrough guidewire was advanced through the guide catheter to lesion in the distal RCA. Inflation number : 1 A AB TREK 3.00X12 RX BALLOON was prepped and advanced across the Dist RCA , then inflated to 8 DIPESH for 0:16 seconds. Balloon out over wire. Inflation Number : 2 A KAVIN Post ERIC 3.5X15 SOFIA -Lot Number# _[id number] EXP: 03/06/2026 was prepped and advanced across the Dist RCA. The stent was deployed at 12 DIPESH for 0:23 seconds. Stent balloon out over wire. Inflation number : 3 A MDT NC EUPHORA RX [id number] BALLOON was prepped and advanced across the Dist RCA , then inflated to 14 DIPESH for 0:16 seconds. Balloon out. Results checked. Wire out. ACT drawn. Results 293 seconds. Therapeutic limits - pre-heparin administration 90-150 seconds and monitoring heparin during a vascular procedure >250 seconds. Guide catheter out. 6 australian XB 3 guide catheter was inserted over the wire. Runthrough guidewire was advanced through the guide catheter to lesion in the diaganol. Inflation number : 1 A MDT NC EUPHORA RX [id number] BALLOON was prepped and advanced across the 1st Diag , then inflated to 12 DIPESH for 0:13 seconds. Balloon out. Inflation Number : 2 A MDT R ERIC 2.5X15 SOFIA -Lot Number# _[id number] EXP: 10/30/2025 was prepped and advanced across the 1st Diag. The stent was deployed at 12 DIPESH for 0:20 seconds. Stent balloon out over wire. Wire out. Results checked. ACT drawn. Results 229 seconds. Therapeutic limits - pre-heparin administration 90-150 seconds and monitoring heparin during a vascular procedure >250 seconds. Guide catheter out. A TR Band was successful obtaining hemostatsis at the Right Radial artery insertion site. Post Procedure: Pulses reassessed and unchanged. PERRLA. Strong, equal hand management planner bilaterally. No VTE prophylaxis required. Vital chart was stopped. Medication's Wasted: Lidocaine 1% = 17 mL. Medication's Wasted: Nitro = 49.5 mg. Medication's Wasted: Other = Fentanyl 50mcg Versed 0.5 mg. Total IV fluids: 70 mL. Complications: None. Estimated blood loss: 5mL-10mL. Responsiveness - Normal response to verbal stimuli; alert and oriented, PERRLA. Airway - Unaffected, no intervention required; spontaneous ventilation. Circulation: W/N/L, pulses unchanged. Nausea/Vomiting: No. Procedure completed. Patient transferred by wheelchair to CPRU. Access Site Site: Right Radial artery Sheath Size: 6 Fr Hemostasis Method: TR Band Hemostasis Success: Successful Procedure Medications Start: 8:44 AM Stop: 8:44 AM Medication: Versed Amount: 1 mg Route: I.V. Start: 8:58 AM Stop: 8:58 AM Medication: Nitrogylcerin Amount: 200 mcg Route: I.A. Start: 8:58 AM Stop: 8:58 AM Medication: Verapamil Amount: 5 mg Route: I.A. Start: 8:59 AM Stop: 8:59 AM Medication: Fentanyl Amount: 25 mcg Route: I.V. Start: 9:01 AM Stop: 9:01 AM Medication: Heparin Amount: 5000 units Route: I.V. Start: 9:26 AM Stop: 9:26 AM Medication: Versed Amount: 0.5 mg Route: I.V. Start: 9:26 AM Stop: 9:26 AM Medication: Fentanyl Amount: 25 mcg Route: I.V. Start: 9:26 AM Stop: 9:26 AM Medication: Nitrogylcerin Amount: 200 mcg Route: I.A. Start: 9:29 AM Stop: 9:29 AM Medication: Heparin Amount: 2000 units Route: I.V. Start: 9:48 AM Stop: 9:48 AM Medication: Heparin Amount: 1000 units Route: I.V. Start: 9:57 AM Stop: 9:57 AM Medication: Plavix Amount: 600 mg Route: P.O. Start: 10:02 AM Stop: 10:02 AM Medication: Heparin Amount: 1000 units Route: I.V. I, the attending physician, have reviewed and verified all procedure medications. Yes, all medications given per verbal order History/Risk Factors Hypertension: Yes Dyslipidemia: Yes Peripheral Arterial Disease (PAD): Yes Myocardial Infarction ([place]): No Obesity: No Renal Disease: No Tobacco Use: Never Prior Interventions PCI: No CABG: No Valve Surgery: No Report Signatures Interventional Workflow Finalized by Crispin Pickard MD on 12/09/2023 01:28 PM Diagnostic Workflow Finalized by Dr Milagro Dent MD [facility] on 12/03/2023 12:35 PM
--- NOTE | 2023-12-03 07:53 | W.PM.OPSUD ---
Surgery/Procedure H&P Update DATE OF PROCEDURE: December 03, 2023 DATE H&P PERFORMED: 11/20/23 H&P UPDATE INFORMATION: I have reviewed H&P completed within last 30 days, I have examined patient prior to procedure and No changes to prior documentation CHANGES TO PREVIOUS DOCUMENTATION: Patient has some chest wall tenderness. PREOP DIAGNOSIS: possible ASHD PRIMARY INDICATION FOR PROCEDURE: chest juarez, abnormal stress test/recurrent syncope PLANNED PROCEDURE: Operation Date: 12/03/23 08:30 Proposed Procedures p Cardiac Catheterization 83957, R94.39(Left) - Milagro Dent MD PATIENT REASSESSED PRIOR TO SEDATION, WITH NO CHANGE NOTED: Yes PHYSICAL EXAM: alert, oriented x 3, clear to auscultation bilaterally and regular rate & rhythm AIRWAY EVAL/ANESTHESIA PLAN: normal airway, see other exam findings, ASA III, Monitored Anesthesia, Local Anesthesia, Risks, benefits & alternatives of sedation and/or procedure discussed and Patient agrees to continue as planned
[2023-12-03] MEDS: diphenhydrAMINE 50 mg Capsule PO (08:00)
[2023-12-03] MEDS: aspirin 325 mg Tablet PO (08:00)
[2023-12-03 08:03] LABS: Glucose Point of Care 246 mg/dL (70-110)
[2023-12-03 08:32] LABS: Anion Gap 14.8 (5-19); Blood Urea Nitrogen 20 mg/dL (8-23); Calcium 9.1 mg/dL (8.5-10.5); Carbon Dioxide 28 mmol/L (22-29); Chloride 99 mmol/L (98-107); Creatinine Clr Calc Pharmacy 71.5197; Glomerular Filtration Rate 75.5 mL/min (90-130); Glucose 253 mg/dL (65-115); Osmolality Calculated 297 mOsm/kg (285-295); Potassium 3.8 mmol/L (3.5-5.1); Sodium 138 mmol/L (136-145)
--- NOTE | 2023-12-03 10:15 | PC.NURSE ---
Recovery Note Pt arrived to CPRU room 4 post cath for recovery until floor bed available. Pt alert and oriented X 3. Breathing even and non-labored on room air. Placed on bedside gun club manager. TR band to right radial. Site asymptomatic, no signs of bleeding or hematoma. Family members at bedside. Pt and family given verbal instructions on activity restrictions. Verbalized understanding. Pt denies any pain. Report called to ABELARDO Moya.
[2023-12-03 11:59] LABS: Glucose Point of Care 219 mg/dL (70-110)
[2023-12-03] MEDS: sodium chloride 0.9% 1,000 ML 100 ML IV (14:12)
[2023-12-03 16:23] LABS: Glucose Point of Care 304 mg/dL (70-110)
--- NOTE | 2023-12-03 16:56 | PC.NURSE ---
TR band removed at 1230. No hematoma noted. Gauze and tegaderm applied to site. No bleeding noted.
[2023-12-03] MEDS: OXcarbazepine 300 mg Tablet PO (17:31)
[2023-12-03] MEDS: insulin glargine 100 units/1 mL 16 UNIT SUBCUT (17:31)
[2023-12-03 20:42] LABS: Glucose Point of Care 249 mg/dL (70-110)
[2023-12-04 00:05] VITALS: BP 156/86; PULSE 84; RESP 27; TEMP 36.9; O2SAT 97
[2023-12-04 03:41] VITALS: BP 167/96; PULSE 80; RESP 14; TEMP 36.8; O2SAT 97
[2023-12-04 04:30] LABS: Basophils % 0.5 %; Eosinophils # 0.1 10^3/uL (0.0-0.8); Eosinophils % 1.8 %; Hematocrit 38.3 % (37-53); Lymphocytes # 1.4 10^3/uL (0.8-4.8); Lymphocytes % 25.8 %; Mean Corpuscular HGB Conc 33.4 g/dL (30-55); Mean Corpuscular Hemoglobin 30.1 pg (27-33); Mean Corpuscular Volume 90.1 fl (82-101); Mean Platelet Volume 10.4 fL (7.4-10.4); Monocytes # 0.4 10^3/uL (0.2-0.9); Monocytes % 7.1 %; Neutrophils # 3.56 10^3/uL (1.8-7.7); Neutrophils % 64.6 %; Nucleated Red Blood Cells % 0 %; Platelet Count 170 10^3/cmm (157-399); Red Blood Count 4.25 10^6/uL (3.85-5.65); Red Cell Distribution Width 13.6 % (12.1-15.1); White Blood Count 5.51 10^3/uL (3.29-11.43)
[2023-12-04 04:46] VITALS: PULSE 80
[2023-12-04 04:52] LABS: Anion Gap 11.7 (5-19); Blood Urea Nitrogen 13 mg/dL (8-23); Calcium 8.9 mg/dL (8.5-10.5); Carbon Dioxide 28 mmol/L (22-29); Chloride 105 mmol/L (98-107); Creatinine Clr Calc Pharmacy 79.4664; Glomerular Filtration Rate 85.2 mL/min (90-130); Glucose 137 mg/dL (65-115); Osmolality Calculated 294 mOsm/kg (285-295); Potassium 3.7 mmol/L (3.5-5.1); Sodium 141 mmol/L (136-145)
[2023-12-04] MEDS: aspirin 81 mg EC Tablet PO (05:34)
[2023-12-04 06:15] LABS: Glucose Point of Care 140 mg/dL (70-110)
[2023-12-04 07:07] VITALS: BP 154/82; PULSE 78; RESP 13; TEMP 36.8; O2SAT 97
[2023-12-04] MEDS: OXcarbazepine 300 mg Tablet PO (08:10)
[2023-12-04] MEDS: lisinopril 10 mg Tablet PO (08:10)
[2023-12-04] MEDS: clopidogrel 75 mg Tablet PO (08:10)
[2023-12-04] MEDS: atorvastatin 40 mg Tablet PO (08:11)
[2023-12-04] MEDS: citalopram 20 mg Tablet PO (08:11)
[2023-12-04] MEDS: insulin glargine 100 units/1 mL 16 UNIT SUBCUT (08:45)
[2023-12-04 11:05] VITALS: BP 170/90; PULSE 93; RESP 17; TEMP 36.7; O2SAT 98
--- NOTE | 2023-12-04 11:50 | PM.PN ---
Subjective Subjective: Patient underwent cardiac catheterization yesterday. He was found to have high-grade lesions in the first diagonal artery and in the right coronary artery. He underwent PCI of these lesions. The LAD was found to be chronically occluded. The LV ejection fraction was within normal limits. Patient is remaining asymptomatic. The vitals are stable. No hematoma bleeding from the radial artery puncture site Medications: Medication Review Details: Current Medications Acetaminophen (Acetaminophen 325 Mg Tablet) 650 mg PO Q6H PRN PRN Reason: MILD PAIN Al Hydrox/Mg Hydrox/Simethicone (Elyj-Ghh-Dykjjmgjw-Angelina 30 Ml Udc) 30 ml PO Q15M PRN PRN Reason: INDIGESTION Aspirin (Aspirin 81 Mg Ec Tablet) 81 mg PO QAM [facility] Last Admin: 12/04/23 05:34 Dose: 81 mg Atorvastatin Calcium (Atorvastatin 40 Mg Tablet) 40 mg PO DAILY [facility] Last Admin: 12/04/23 08:11 Dose: 40 mg Atropine Sulfate (Atropine 1 Mg/Ml Sdv 1 Ml) 0.5 mg IVP PRN PRN PRN Reason: Symptomatic bradycardia Citalopram Hydrobromide (Citalopram 20 Mg Tablet) 20 mg PO DAILY [facility] Last Admin: 12/04/23 08:11 Dose: 20 mg Clopidogrel Bisulfate (Clopidogrel 75 Mg Tablet) 75 mg PO DAILY [facility] Last Admin: 12/04/23 08:10 Dose: 75 mg Fentanyl (Fentanyl 50 Mcg/Ml Inj 2ml) 50 mcg IVP PRN PRN PRN Reason: Prior to sheath removal Sodium Chloride (Sodium Chloride 0.9%) 1,000 mls @ 100 mls/hr IV .Q10H [facility] Last Admin: 12/03/23 23:52 Dose: Not Given Insulin Glargine (Insulin Glargine 100 Units/1 Ml) 16 unit SUBCUT BID [facility] Last Admin: 12/04/23 08:45 Dose: 16 unit Lisinopril (Lisinopril 10 Mg Tablet) 10 mg PO DAILY [facility] Last Admin: 12/04/23 08:10 Dose: 10 mg Magnesium Hydroxide (Magnesium Hydroxide 30 Ml Udc) 30 ml PO DAILY PRN PRN Reason: CONSTIPATION Naloxone HCl (Naloxone 0.4 Mg/Ml Sdv) 0.1 mg IVP Q2M PRN PRN Reason: RESPIRATORY RATE < 8/MIN Nitroglycerin (Nitroglycerin 0.4 Mg Sublingual Tablet) 0.4 mg SUBLINGUAL Q5M PRN PRN Reason: CHEST PAIN Non-Formulary Medication (Dulaglutide [Trulicity]) 3 mg SUBCUT WEEKLY [facility] Oxcarbazepine (Oxcarbazepine 300 Mg Tablet) 300 mg PO BID [facility] Last Admin: 12/04/23 08:10 Dose: 300 mg Temazepam (Temazepam 15 Mg Capsule) 15 mg PO BEDTIME PRN PRN Reason: INSOMNIA Vitals/I&O/Wt Last Vital Signs Temp 98.0 F 12/04/23 11:05 Pulse 93 12/04/23 11:05 Resp 17 12/04/23 11:05 BP 170/90 12/04/23 11:05 Pulse Ox 98 12/04/23 11:05 O2 Del Method Room Air 12/04/23 11:05 O2 Flow Rate 2 12/03/23 14:07 12/03/23 12/04/23 12/04/23 22:59 06:59 14:59 Intake Total 1000.000 / 1000.000 576 / 576 Balance 1000.000 / 1000.000 576 / 576 Weight last 48 hrs Weight 150 lb Physical Exam Narrative: GENERAL: The patient is alert and oriented times three. Not in any acute distress. HEENT: No significant pallor, icterus or lymphadenopathy.Oral cavity: There are no mucous membrane lesions. NECK: Trachea appears to be central. No masses noted. No JVD or thyromegaly appreciated. RESPIRATORY: Chest is symmetrical. No intercostals muscle retraction or any accessory muscle activation. There is no chest wall tenderness. Breath sounds are heard bilaterally. No rales or rhonchi heard. No evidence of any consolidation. BREASTS: Deferred. HEART: The heart sounds are normal. No S3 or S4. No significant murmurs. No pericardial rub ABDOMEN: No vessel pulsations or distention. No tenderness. No organomegaly appreciated. Bowel sounds are normally heard. : Deferred. RECTAL: Deferred. LYMPHATIC: No lymphadenopathy noted in the neck. EXTREMITIES: No hematoma bleeding from the arterial puncture site. Good distal pulses MUSCULOSKELETAL: No acute joint deformities or swelling SKIN: There are no significant rashes or ecchymosis NEUROPSYCHIATRIC: The patient is alert and oriented x3. Appears to be in a good mood. No tremors or rigidity noted. Data 12/04/23 03:56 12/04/23 03:56 Other Labs: Laboratory Last Values WBC 5.51 10^3/uL (3.29-11.43) 12/04/23 03:56 RBC 4.25 10^6/uL (3.85-5.65) 12/04/23 03:56 Hgb 12.80 g/dL (11.27-16.99) 12/04/23 03:56 Hct 38.3 % (37-53) 12/04/23 03:56 MCV 90.1 fl (82-101) 12/04/23 03:56 MCH 30.1 pg (27-33) 12/04/23 03:56 MCHC 33.4 g/dL (30-55) 12/04/23 03:56 RDW 13.6 % (12.1-15.1) 12/04/23 03:56 Plt Count 170 10^3/cmm (157-399) 12/04/23 03:56 MPV 10.4 fL (7.4-10.4) 12/04/23 03:56 Neut % (Auto) 64.6 % 12/04/23 03:56 Lymph % (Auto) 25.8 % 12/04/23 03:56 [place] % (Auto) 7.1 % 12/04/23 03:56 Eos % (Auto) 1.8 % 12/04/23 03:56 Baso % (Auto) 0.5 % 12/04/23 03:56 Neut # (Auto) 3.56 10^3/uL (1.8-7.7) 12/04/23 03:56 Lymph # (Auto) 1.4 10^3/uL (0.8-4.8) 12/04/23 03:56 [place] # (Auto) 0.4 10^3/uL (0.2-0.9) 12/04/23 03:56 Eos # (Auto) 0.1 10^3/uL (0.0-0.8) 12/04/23 03:56 Baso # (Auto) 0.0 10^3/uL (0.0-0.1) 12/04/23 03:56 Nucleated RBC % (auto) 0 % 12/04/23 03:56 Nucleated RBCs # 0.0 /100WBC 12/04/23 03:56 PT 12.30 SECONDS (12.1-14.9) 11/26/23 08:27 INR 0.89 (0.8-1.2) 11/26/23 08:27 Sodium 141 mmol/L (136-145) 12/04/23 03:56 Potassium 3.7 mmol/L (3.5-5.1) 12/04/23 03:56 Chloride 105 mmol/L (98-107) 12/04/23 03:56 Carbon Dioxide 28 mmol/L (22-29) 12/04/23 03:56 Anion Gap 11.7 (5-19) 12/04/23 03:56 BUN 13 mg/dL (8-23) 12/04/23 03:56 Creatinine 0.9 mg/dL (0.7-1.2) 12/04/23 03:56 GFR Calculation 85.2 mL/min (90-130) L 12/04/23 03:56 Glucose 137 mg/dL (65-115) H 12/04/23 03:56 POC Glucose 140 mg/dL (70-110) H 12/04/23 06:04 Calculated Osmolality 294 mOsm/kg (285-295) 12/04/23 03:56 Calcium 8.9 mg/dL (8.5-10.5) 12/04/23 03:56 Blood Type A Negative 11/26/23 08:27 Rho(D) Type Rh negative 11/26/23 08:27 Antibody Screen Negative 11/26/23 08:27 A&P Assessment and plan (1) Atherosclerotic heart disease [place] coronary artery w/angina pectoris: Patient had the cardiac catheterization yesterday. For the details of the angiogram findings, please refer to the report from yesterday. He underwent PCI of the RCA and the diagonal artery lesions. Currently remaining stable and asymptomatic. Has been ambulating on telemetry. Qualifiers: [place] vs. transplanted heart: [place] heart Qualified Code(s): I25.119 - Atherosclerotic heart disease of [place] coronary artery with unspecified angina pectoris (2) Dyslipidemia: Patient is on Lipitor. This may be continued. (3) PAD (peripheral artery disease): The peripheral artery disease was found to be mild. Minimal requiring specific intervention. (4) Benign essential HTN: Currently normotensive. May continue on the current medications. (5) T2DM (type 2 diabetes mellitus): Continue on the current management. The metformin may be held for 3 days. Restart the metformin on . Qualifiers: Diabetes mellitus nursing home insulin use: without terminal clerk use Diabetes mellitus complication status: without complication Qualified Code(s): E11.9 - Type 2 diabetes mellitus without complications Plan Since the patient remained stable with no new symptoms, he is being discharged home today. He will be continued on the Plavix and aspirin in addition to her current medications. [facility] in 1 to 2 weeks Patient will be seen by me in the office in 2 months Patient is advised to continue the medications as mentioned above. The importance of compliance to diet, medications and exercise were discussed. In the event of the patient developing chest pain ,unusual palpitations or any new symptoms, is advised to contact me or come to the hospital. Attestations Medical Necessity Statement*: Being discharged home today Coding Level of Care Code 52355 Diagnoses Atherosclerosis of [place] coronary artery of [place] heart with angina pectoris I25.119 [place] vs. transplanted heart: [place] heart Dyslipidemia E78.5 PAD (peripheral artery disease) I73.9 Benign essential HTN I10 Type 2 diabetes mellitus without complication, without long-term current use of insulin E11.9 Diabetes mellitus terminal clerk insulin use: without nursing home use Diabetes mellitus complication status: without complication
[2023-12-04 11:59] LABS: Glucose Point of Care 186 mg/dL (70-110)
[2023-12-04 12:41] VITALS: BP 149/83; PULSE 93; RESP 17; TEMP 36.7; O2SAT 98
== END 2023-12-04 12:41 | disposition home or self-care (01) ==
LOC: CCL 07:27 → CSU 11:24
PROVIDERS: Internal Medicine Cardiovascular Disease; PCP Family Medicine; Visit Provider Internal Medicine
DX: I25.119 Atherosclerotic heart disease of native coronary artery with unspecified angina pectoris (principal); I25.82 Chronic total occlusion of coronary artery; E78.5 Hyperlipidemia, unspecified; E11.51 Type 2 diabetes mellitus with diabetic peripheral angiopathy without gangrene; I10 Essential (primary) hypertension; Z79.84 Long term (current) use of oral hypoglycemic drugs
CPT/HCPCS: 36415; 36416; 80048; 82962; 85025; 85347; 85610; 86850; 86900; 93458; 94760; 96372; 96374; 96375; 96376; 99152; 99153; C1725; C1769; C1874; C1887; C1894; C9600; C9601; J1644; J1815; J2250; J3010; J3490; J7030; Q0163; Q9967

== ENCOUNTER → 2023-12-17 15:03 | Outpatient (BNVA) | payer MEDICARE, SELFPAY | PROVIDERS: PCP Family Medicine; Visit Provider Nurse Practitioner Family | DX: I25.10 Atherosclerotic heart disease of native coronary artery without angina pectoris (principal); I10 Essential (primary) hypertension | CPT/HCPCS: 36415; 80048; 99214 ==

== ENCOUNTER 2024-01-04 10:46 | Outpatient (CLI) | payer MEDICARE, SELFPAY ==
--- NOTE | 2024-01-04 10:57 | XR_ITS ---
WS: [id number] Exam: XR KUB [id number] Date/Time of Exam: 01/04/2024 10:59 AM Reason For Exam: decreased appetite, diarrhea No bowel obstruction or free air. No sign of organ enlargement. Prominent calcified density in the up per LEFT quadrant of the abdomen. Bony structures are intact. XR/XR KUB [id number] IMPRESSION: 1. No acute abdominal process. 2. Prominent LEFT upper quadrant calcification. The appearance is nonspecific.
== END 2024-01-04 10:47 | disposition home or self-care (01) ==
PROVIDERS: PCP Family Medicine; Visit Provider Family Medicine
DX: R19.7 Diarrhea, unspecified (principal); R80.8 Other proteinuria; E11.9 Type 2 diabetes mellitus without complications; R93.5 Abnormal findings on diagnostic imaging of other abdominal regions, including retroperitoneum
CPT/HCPCS: 74018; 81000; 87493

== ENCOUNTER → 2024-01-30 13:26 | Outpatient (BNVA) | payer MEDICARE, SELFPAY | PROVIDERS: PCP Family Medicine; Visit Provider Podiatrist Foot & Ankle Surgery | DX: L60.3 Nail dystrophy (principal); L84 Corns and callosities; I73.9 Peripheral vascular disease, unspecified; E11.69 Type 2 diabetes mellitus with other specified complication; Z79.4 Long term (current) use of insulin; Z79.84 Long term (current) use of oral hypoglycemic drugs | CPT/HCPCS: 11721 ==

== ENCOUNTER 2024-02-06 03:26 | Emergency (ER) | payer MEDICARE, SELFPAY ==
[2024-02-06 03:32] VITALS: BP 209/101; PULSE 76; RESP 18; TEMP 36.4; O2SAT 96; BMI 22.7
--- NOTE | 2024-02-06 03:34 | CTR_ITS ---
PROCEDURE INFORMATION: Exam: CT Head Without Contrast Exam date and time: 02/06/2024 3:50 AM Age: 63 years old Clinical indication: In Injury or trauma; Fall; Blunt trauma (contusions or hematomas); Additional info: Fall headache TECHNIQUE: Imaging protocol: Computed tomography of the head without contrast. Radiation optimization: All CT scans at this facility use at least one of these dose optimization techniques: automated exposure control; mA and/or kV adjustment per patient size (includes targeted exams where dose is matched to clinical indication); or iterative reconstruction. COMPARISON: CT head wo con* [id number] 11/29/2023 1:07 PM RADIATION DOSE METRICS: Total DLP (mGy-cm): 1093.3 FINDINGS: Brain: No acute intracranial hemorrhage or abnormal intracranial mass effect is identified. There is chronic focal encephalomalacia left frontal lobe with associated ex vacuo dilation of the left frontal horn. No subdural collections are seen. Old left frontal craniotomy site is again noted. Cerebral ventricles: Stable size and position compared to 11/29/2023. No midline shift. Paranasal sinuses: Visualized portions of paranasal sinuses are well aerated. Mastoid air cells: Visualized portions of mastoid sinuses are not opacified. Bones: See Brain finding. Soft tissues: Other than as stated above, no obvious acute abnormality. CT/CT head wo con* [id number] IMPRESSION: No acute intracranial hemorrhage or mass effect.
--- NOTE | 2024-02-06 03:34 | XRR_ITS ---
PROCEDURE INFORMATION: Exam: XR Right Shoulder Exam date and time: 02/06/2024 3:44 AM Age: 63 years old Clinical indication: Injury or trauma; Fall; Blunt trauma (contusions or hematomas); Shoulder; Right; Additional info: Fall pain TECHNIQUE: Imaging protocol: Radiologic exam of the right shoulder. Views: 2 or more views. COMPARISON: CR XR chest 1V portable [id number] 11/29/2023 1:09 PM FINDINGS: Bones/joints: Degenerative change versus old posttraumatic change of the acromioclavicular joint. Soft tissues: Normal. XR/XR shoulder RT min 2V* [id number] IMPRESSION: 1. No acute findings. 2. Additional findings as above.
--- NOTE | 2024-02-06 03:34 | CTR_ITS ---
PROCEDURE INFORMATION: Exam: CT Cervical Spine Without Contrast Exam date and time: 02/06/2024 3:50 AM Age: 63 years old Clinical indication: Neck Injury or trauma; Fall; Blunt trauma; Additional info: Fall pain TECHNIQUE: Imaging protocol: Computed tomography of the cervical spine without contrast. Radiation optimization: All CT scans at this facility use at least one of these dose optimization techniques: automated exposure control; mA and/or kV adjustment per patient size (includes targeted exams where dose is matched to clinical indication); or iterative reconstruction. COMPARISON: CR XR cervical spine 3V* [id number] 06/28/2023 3:21 PM RADIATION DOSE METRICS: Total DLP (mGy-cm): 526 FINDINGS: Bones: No fracture or other acute osseous abnormality of the cervical spine is identified. Incidental note of developmental incomplete fusion of the posterior arch of C1. Mild chronic degenerative disc disease and facet DJD. Lungs: Small calcified granuloma left lung apex. Soft tissues: No obvious acute abnormality detected. CT/CT cervical spin wo con* [id number] IMPRESSION: No acute cervical spine fracture identified.
--- NOTE | 2024-02-06 03:58 | W.ED.FALL ---
HPI - Fall General: Chief Complaint: Fall Stated Complaint: Fall Time Seen by Provider: 02/06/24 03:29 History of Present Illness: Patient presents to the ER having multiple falls over the last several days. He did injure his right shoulder and possibly hit his head. Patient is complaining of chronic head neck pain and right shoulder pain. He does not remember passing out or blacking out he thinks he just fell. He has no other complaints at this time. 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 Family History Father Heart disease Mother Cancer Social History Smoking and tobacco/nicotine status: never used tobacco/nicotine Alcohol intake: never Substance/Drug Use: never Household members: spouse Housing: House Highest education level completed: 11th Grade Current occupational status: disabled Physical Exam Const: COMMON NORMALS: no acute distress, average body habitus, patient oriented x3, no limitations, healthy appearing, alert and well nourished HENMT: COMMON NORMALS: normocephalic, atraumatic, hearing grossly normal bilaterally, external ears normal, Normal external nose present and moist oral mucous membranes HEAD & SCALP: normocephalic and atraumatic NOSE: Normal external nose present EXTERNAL EAR: Yes external ears normal Neck/C-Spine: COMMON NORMALS: full ROM, no lymphadenopathy, supple, no meningeal signs, no JVD and Thyroid normal THYROID: Thyroid normal Chest: COMMONS NORMALS: negative for normal inspection of the chest ( a large bruise over the right clavicular area) and negative for normal palpation of entire chest wall (Tender to palpate over right clavicular area) Resp: COMMON NORMALS: normal respiratory effort and No retractions Cardio: COMMON NORMALS: no JVD, regular rate, regular rhythm, S1 normal heart sound present, S2 normal heart sound present, No gallops present (Cardio), No clicks present (Cardio), No murmurs present (Cardio) and No rub (Cardio) RATE: regular rate RHYTHM: regular rhythm HEART SOUNDS: S1 normal heart sound present and S2 normal heart sound present GI: COMMON NORMALS: Normal to inspection, nondistended, normoactive bowel sounds present, Soft to palpation, non-tender, No hepatosplenomegaly present and no masses PALPATION: Yes Soft to palpation and Yes No hepatosplenomegaly present Neuro: COMMON NORMALS: patient oriented x3 SENSORIUM/ORIENTATION: Yes alert MENINGEAL SIGNS: Yes no meningeal signs Course Vital Signs: Vital signs: Vital Signs Temperature 97.5 F L 02/06/24 03:32 Pulse Rate 70 02/06/24 05:09 Respiratory Rate 16 02/06/24 05:09 Blood Pressure 171/86 02/06/24 05:09 Pulse Oximetry 98 02/06/24 05:09 Oxygen Delivery Me thod Room Air 02/06/24 03:32 MDM - Fall Medical Decision Making X-rays were obtained of the right shoulder, CTs of the head and cervical spine, all read off as negative per radiology. Patient's blood pressure improved to 169/83 after giving him 0.2 mg clonidine. These results was discussed with the patient patient be discharged home. Differential Diagnosis Unlikely syncope, dislocation of shoulder region, fracture of wrist, compression fracture, concussion with loss of consciousness or concussion without loss of consciousness Medical Records I reviewed the patient's medical records. Lab Data I reviewed the patient's lab results. Radiology Impressions Cervical Spine CT 02/06/24 03:34 IMPRESSION: No acute cervical spine fracture identified. Head CT 02/06/24 03:34 IMPRESSION: No acute intracranial hemorrhage or mass effect. Shoulder X-Ray 02/06/24 03:34 IMPRESSION: 1. No acute findings. 2. Additional findings as above. All radiology interpretation(s) finalized by discharge Discharge Plan Discharge Patient Disposition: Home Clinical Impression: Fall, Musculoskeletal pain, Hypertension Condition: Stable Prescriptions: No Action citalopram 20 mg tablet 20 mg PO DAILY Qty: 90 0RF Levemir FlexPen 100 unit/mL (3 mL) insulin pen See Rx Instructions .ROUTE .COMPLEX Qty: 28.8 0RF Dose Instruction: inject 16 units SUBCUTANEOUSLY TWICE DAILY FOR 90 DAYS Rx Instructions: inject 16 units SUBCUTANEOUSLY TWICE DAILY FOR 90 DAYS atorvastatin 40 mg tablet 40 mg PO DAILY Qty: 90 1RF oxcarbazepine 300 mg tablet 300 mg PO BID Qty: 180 1RF Trulicity 3 mg/0.5 mL pen injector 3 mg SUBCUT .weekly Qty: 2 3RF lisinopril 10 mg tablet 20 mg PO DAILY metformin 500 mg tablet extended release 24 hr See Rx Instructions .ROUTE .COMPLEX Qty: 360 0RF Hold Instructions: Resume on 12/06/23. Dose Instruction: TAKE 2 TABLETS BY MOUTH TWICE DAILY Rx Instructions: TAKE 2 TABLETS BY MOUTH TWICE DAILY clopidogrel 75 mg Tablet 75 mg PO DAILY Qty: 90 3RF aspirin 81 mg tablet,delayed release (DR/EC) 81 mg PO QAM Discharge Orders: Discharge ED (Routine); Ordered 02/06/24 Ordered By: Marino Alanis Referrals: Eliseo Cabrera MD [Primary Care Provider] - 1 week Patient Instructions: Hypertension (ED), Musculoskeletal Pain (ED) Activity Restrictions/Additional Instructions: Your evaluation in the ER consisted of x-rays and CT scans that were read by the radiologist as negative for acute fracture or bleed. You have musculoskeletal type pain. Please continue to take [id number] Tylenol as needed for pain and follow-up with your Anaprox physician within the next 7 days. Thank you for choosing [facility] for your healthcare needs today. Please realize that you were seen in the emergency department and that we are providing you with an emergency medical screening exam and this may not be a complete and all exclusive of all testing and/or medical workup we may need to determine your element or severity of your illness. It is very important that you follow-up as instructed with your primary care provider or specialist for the additional evaluation and to discuss your medical treatment plan. You may return to the emergency department should you have concerns or if your condition changes or worsens in any way. Coding Level of Care Code ED Bailer Operators Supervisor for Yana Alcaraz
[2024-02-06 04:13] VITALS: BP 173/82
[2024-02-06 05:09] VITALS: BP 171/86; PULSE 70; RESP 16; O2SAT 98
[2024-02-06 06:38] VITALS: BP 156/77; PULSE 69; RESP 18; O2SAT 97
== END 2024-02-06 06:15 | disposition home or self-care (01) ==
PROVIDERS: Emergency Provider Emergency Medicine; PCP Family Medicine Adult Medicine
DX: M79.18 Myalgia, other site (principal); I10 Essential (primary) hypertension; Z79.85 Long-term (current) use of injectable non-insulin antidiabetic drugs; Z79.4 Long term (current) use of insulin; Z79.02 Long term (current) use of antithrombotics/antiplatelets; Z79.82 Long term (current) use of aspirin; Z79.84 Long term (current) use of oral hypoglycemic drugs
CPT/HCPCS: 70450; 72125; 73030; 99284

== ENCOUNTER → 2024-02-07 13:43 | Outpatient (BNVA) | payer MEDICARE, SELFPAY | PROVIDERS: PCP Family Medicine; Visit Provider Family Medicine Adult Medicine | DX: I10 Essential (primary) hypertension (principal); E11.9 Type 2 diabetes mellitus without complications; E78.5 Hyperlipidemia, unspecified; I25.119 Atherosclerotic heart disease of native coronary artery with unspecified angina pectoris; Z86.69 Personal history of other diseases of the nervous system and sense organs; R26.81 Unsteadiness on feet; F03.90 Unspecified dementia, unspecified severity, without behavioral disturbance, psychotic disturbance, mood disturbance, and anxiety; R29.6 Repeated falls; R94.39 Abnormal result of other cardiovascular function study | CPT/HCPCS: 80048; 83036; 83880; 85610 ==

== ENCOUNTER 2024-03-14 14:12 | Emergency (ER) | payer MEDICARE, SELFPAY ==
[2024-03-14 14:15] VITALS: BP 165/88; PULSE 73; RESP 18; TEMP 36.7; O2SAT 99; BMI 25.0
--- NOTE | 2024-03-14 14:16 | CT_ITS ---
WS: [id number] CT HEAD TECHNIQUE: Noncontrast CT of the head obtained from the skullbase to the vertex. CLINICAL INFORMATION: CVA COMPARISON: 02/06/2024 DLP: [address] scans at [facility] use at least one of these dose optimization techniques: automated e xposure control; mA and/or kV adjustment per patient size (includes targeted exams where dose is matc hed to clinical indication); or iterative reconstruction. FINDINGS: No evidence of intracranial hemorrhage or mass effect. Ventricular system and basal cisterns are wilkes nt. Moderate small vessel changes with mild parenchymal volume loss. No extra-axial fluid collections . No evidence of mass or mass effect. Chronic LEFT frontal craniotomy with encephalomalacia in the LE FT frontal lobe unchanged. Ex vacuo dilatation of the LEFT frontal horn. Vascular calcification. Tiny chronic lacunar infarct RIGHT cerebellum. Small chronic lacunar infarct LEFT lateral basal ganglia. Chronic Wallerian degeneration LEFT midbrain. Small vessel changes in the azam. Paranasal sinuses and mastoid air cells are well aerated. .Normal visualized soft tissues. Vascular c alcification. CT/CT head thrombolytic [id number] IMPRESSION: 1. No evidence of intracranial hemorrhage or mass effect. 2. No significant changes since 02/06/2024 3. No acute intracranial findings. Notified Wilfrido Ahumada DO at 03/14/2024 2:27 PM.
--- NOTE | 2024-03-14 14:20 | ED_ITS ---
HPI - Neuro Symptoms/Deficit 2 General: Chief Complaint: Neuro Symptoms/Deficit Stated Complaint: NEURO Time Seen by Provider: 03/14/24 14:20 History of Present Illness: 63-year-old male presents emergency room via EMS from an outlying clinic. There is a concern that he had had a stroke. He was last normal around 1045 when he woke up the said he had word finding difficulties and a right-sided facial droop. These have mostly resolved at this point. He does have some baseline dementia. He also has some word finding difficulty. He is nondiabetic. He is on Plavix and aspirin as well as 40 mg daily of atorvastatin he is not on any other anticoagulants. Associated symptoms: Deny chest pain Related Data Home Medications Medication Instructions Recorded Confirmed aspirin 81 mg tablet,delayed 81 mg PO QAM 11/29/23 03/14/24 release Previous Rx's Medication Instructions Recorded dulaglutide 3 mg/0.5 mL 3 mg (0.5 mL) SUBCUT .weekly #2 mL 08/07/23 subcutaneous pen injector (Trulicity) oxcarbazepine 300 mg tablet 300 mg PO BID #180 tabs 08/07/23 citalopram 20 mg tablet 20 mg PO DAILY #90 tabs 11/05/23 clopidogrel 75 mg tablet 75 mg PO DAILY #90 tabs 12/04/23 metformin 500 mg tablet,extended See Rx Instructions .Route 01/29/24 release 24 hr .COMPLEX #360 tabs insulin detemir U-100 100 unit/mL See Rx Instructions .Route 02/08/24 (3 mL) subcutaneous pen (Levemir .COMPLEX #30 mL FlexPen) atorvastatin 40 mg tablet 40 mg PO DAILY #90 tabs 02/12/24 lisinopril 20 mg tablet 20 mg PO DAILY #90 tabs 02/12/24 doxepin 10 mg capsule 10 mg PO .q hs PRN sleep #30 caps 03/06/24 Allergies Allergy/AdvReac Type Severity Reaction Status Date / Time penicillin G Allergy Mild rash Verified 03/06/24 13:34 Review of Systems 2 Const: Denies: fever(s) or chills Card: Denies: chest pain Resp: Denies: dyspnea GI: Denies: abdominal pain : Denies: dysuria, urinary frequency or urinary urgency Musc: Denies: neck pain or back pain Skin/Breast: Denies: rash PFSH ED 2 PFSH: Medical History Insomnia disorder Multiple falls Dementia History of encephalopathy History of seizure disorder last seizure 2018 Benign essential HTN History of short term memory loss Surgical History 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 Family History Father Heart disease Mother Cancer Social History Smoking and tobacco/nicotine status: unknown if used tobacco/nicotine Alcohol intake: never Substance/Drug Use: never Household members: spouse Housing: House Highest education level completed: 11th Grade Current occupational status: disabled NIH stroke score 2 NIHSS: Level Of Consciousness - 1a: 0 Level Of Consciousness Questions - 1b: Both Correct Level Of Consciousness Commands - 1c: Both Correct Best Gaze - 2: Normal Visual [place] - 3: No Visual Loss Facial Palsy - 4: N ormal Motor Arm Right - 5: No Drift Motor Arm Left - 5: No Drift Motor Leg Right - 6: No Drift Motor Leg Left - 6: No Drift Limb Ataxia - 7: A bsent Sensory - 8: Normal Best Language - 9: No Aphasia Dysarthia - 10: Normal Extinction And Inattention - 11: 0 Score: Total Score: 0 Physical Exam 2 Const: GENERAL APPEARANCE: cooperative ORIENTATION/CONSCIOUSNESS: Yes awake HENMT: COMMON NORMALS: normocephalic, atraumatic and hearing grossly normal bilaterally HEAD & SCALP: normocephalic and atraumatic Resp: COMMON NORMALS: normal respiratory effort, No retractions, No use of accessory muscles and clear to auscultation bilaterally AUSCULTATION: clear to auscultation bilaterally Cardio: COMMON NORMALS: regular rate, regular rhythm and No murmurs present (Cardio) RATE: regular rate RHYTHM: regular rhythm GI: COMMON NORMALS: Soft to palpation and No hepatosplenomegaly present A USCULTATION: Yes normoactive bowel sounds PALPATION: Yes Soft to palpation, No Tenderness to palpation present (GI), No Guarding due to palpation present (GI) and Yes No hepatosplenomegaly present Extremity: COMMON NORMALS: normal to inspection, capillary refill normal, no clubbing, cyanosis or edema, no calf tenderness and no pedal edema Skin: COMMON NORMALS: no rashes or lesions noted GENERAL SKIN EXAM: no rashes or lesions noted Course 2 Vital Signs: Vital signs: Vital Signs Temperature 98.1 F 03/14/24 14:15 Pulse Rate 73 03/14/24 16:00 Respiratory Rate 18 03/14/24 14:15 Blood Pressure 149/97 03/14/24 16:00 Pulse Oximetry 97 03/14/24 16:00 Oxygen Delivery Me thod Room Air 03/14/24 16:00 MDM - Neuro Symptoms/Deficit Medical Decision Making Patient has NIH score of 0. This remains unchanged CT does not show anything acute. When he first arrived his stroke score was 0 his describes some difficulty with standing right sided facial droop and difficulty with speech. This has resolved. He is already on Plavix and aspirin as well as atorvastatin at 40 mg daily. Continue these medications. Will refer him to neurology for further evaluation. Medical Records I reviewed the patient's medical records. Lab Data I reviewed the patient's lab results. 03/14/24 14:29 03/14/24 14:[address] 03/14/24 14:16 IMPRESSION: 1. No evidence of intracranial hemorrhage or mass effect. 2. No significant changes since 02/06/2024 3. No acute intracranial findings. Notified Wilfrido Ahumada DO at 03/14/2024 2:27 PM. Laboratory Results WBC 5.68 10^3/uL (3.29-11.43) 03/14/24 14:29 RBC 3.77 10^6/uL (3.85-5.65) L 03/14/24 14:29 Hgb 11.40 g/dL (11.27-16.99) 03/14/24 14:29 Hct 35.0 % (37-53) L 03/14/24 14:29 MCV 92.8 fl (82-101) 03/14/24 14:29 MCH 30.2 pg (27-33) 03/14/24 14:29 MCHC 32.6 g/dL (30-55) 03/14/24 14:29 RDW 14.0 % (12.1-15.1) 03/14/24 14:29 Plt Count 194 10^3/cmm (157-399) 03/14/24 14:29 MPV 10.4 fL (7.4-10.4) 03/14/24 14:29 Neut % (Auto) 66.5 % 03/14/24 14:29 Lymph % (Auto) 20.4 % 03/14/24 14:29 [place] % (Auto) 8.5 % 03/14/24 14:29 Eos % (Auto) 3.3 % 03/14/24 14:29 Baso % (Auto) 1.1 % 03/14/24 14:29 Neut # (Auto) 3.78 10^3/uL (1.8-7.7) 03/14/24 14:29 Lymph # (Auto) 1.2 10^3/uL (0.8-4.8) 03/14/24 14:29 [place] # (Auto) 0.5 10^3/uL (0.2-0.9) 03/14/24 14:29 Eos # (Auto) 0.2 10^3/uL (0.0-0.8) 03/14/24 14:29 Baso # (Auto) 0.1 10^3/uL (0.0-0.1) 03/14/24 14:29 Nucleated RBC % (auto) 0 % 03/14/24 14: Nucleated RBCs # 0.0 /100WBC 03/14/24 14:29 PT 12.90 SECONDS (12.1-14.9) 03/14/24 14:29 INR 0.94 (0.8-1.2) 03/14/24 14:29 APTT 25.5 SECONDS (23.9-36.7) 03/14/24 14:29 Sodium 139 mmol/L (136-145) 03/14/24 14:29 Potassium 4.2 mmol/L (3.5-5.1) 03/14/24 14:29 Chloride 105 mmol/L (98-107) 03/14/24 14:29 Carbon Dioxide 24 mmol/L (22-29) 03/14/24 14:29 Anion Gap 14.2 (5-19) 03/14/24 14:29 BUN 24 mg/dL (8-23) H 03/14/24 14:29 Creatinine 0.7 mg/dL (0.7-1.2) 03/14/24 14:29 GFR Calculation 113.9 mL/min (90-130) 03/14/24 14:29 Glucose 260 mg/dL (65-115) H 03/14/24 14:29 POC Glucose 244 mg/dL (70-110) H 03/14/24 14:14 Calculated Osmolality 301 mOsm/kg (285-295) H 03/14/24 14:29 Calcium 8.6 mg/dL (8.5-10.5) 03/14/24 14:29 Total Bilirubin 0.2 mg/dL (0.15-1.2) 03/14/24 14:29 AST 12 U/L (0-40) 03/14/24 14:29 ALT 9 U/L (0-41) 03/14/24 14:29 Alkaline Phosphatase 89 U/L (40-130) 03/14/24 14:29 Total Protein 6.0 g/dL (6.6-8.7) L 03/14/24 14:29 Albumin 3.8 g/dL (3.5-5.2) 03/14/24 14:29 Globulin 2.2 g/dL (1.3-4.6) 03/14/24 14:29 Urine Color Yellow (Yellow) 03/14/24 16:02 Urine Appearance Clear (CLEAR) 03/14/24 16:02 Urine pH 7.0 (5-7) 03/14/24 16:02 Ur Specific [place] 1.013 (1.005-1.030) 03/14/24 16:02 Urine Protein Trace (Negative) A 03/14/24 16:02 Urine Glucose (UA) 3+ (Normal) H 03/14/24 16:02 Urine Ketones Negative (Negative) 03/14/24 16:02 Urine Blood Negative (Negative) 03/14/24 16:02 Urine Nitrate Negative (Negative) 03/14/24 16:02 Urine Bilirubin Negative (Negative) 03/14/24 16:02 Urine Urobilinogen 0.2 mg/dL (Negative) 03/14/24 16:02 Ur Leukocyte Esterase Negative (Negative) 03/14/24 16:02 Amorphous Sediment Not Reportable 03/14/24 16:02 Urine Opiates Screen Negative ng/mL (Negative) 03/14/24 16:02 Ur Barbiturates Screen Negative ng/mL (Negative) 03/14/24 16:02 Ur Phencyclidine Scrn Negative ng/mL (Negative) 03/14/24 16:02 Ur Amphetamines Screen Negative ng/mL (Negative) 03/14/24 16:02 U Benzodiazepines Scrn Negative ng/mL (Negative) 03/14/24 16:02 Urine Cocaine Screen Negative ng/mL (Negative) 03/14/24 16:02 U Marijuana (THC) Screen Negative ng/mL (Negative) 03/14/24 16:02 All radiology interpretation(s) finalized by discharge Discharge Plan Discharge Patient Disposition: Home Clinical Impression: TIA (transient ischemic attack) Prescriptions: No Action citalopram 20 mg tablet 20 mg PO DAILY Qty: 90 0RF doxepin 10 mg capsule 10 mg PO .q hs PRN (Reason: sleep) Qty: 30 1RF Rx Instructions: Taking intermittently and not every night or when he has trouble sleeping oxcarbazepine 300 mg tablet 300 mg PO BID Qty: 180 1RF Trulicity 3 mg/0.5 mL pen injector 3 mg SUBCUT .weekly Qty: 2 3RF metformin 500 mg tablet extended release 24 hr See Rx Instructions .ROUTE .COMPLEX Qty: 360 0RF Hold Instructions: Resume on 12/06/23. Dose Instruction: TAKE 2 TABLETS BY MOUTH TWICE DAILY Rx Instructions: TAKE 2 TABLETS BY MOUTH TWICE DAILY Levemir FlexPen 100 unit/mL (3 mL) insulin pen See Rx Instructions .ROUTE .COMPLEX Qty: 30 2RF Dose Instruction: inject 16 units SUBCUTANEOUSLY TWICE DAILY FOR 90 DAYS Rx Instructions: inject 20 units SUBCUTANEOUSLY TWICE DAILY FOR 90 DAYS atorvastatin 40 mg tablet 40 mg PO DAILY Qty: 90 1RF lisinopril 20 mg tablet 20 mg PO DAILY Qty: 90 1RF clopidogrel 75 mg Tablet 75 mg PO DAILY Qty: 90 3RF aspirin 81 mg tablet,delayed release (DR/EC) 81 mg PO QAM Discharge Orders: Discharge ED (Routine); Ordered 03/14/24 Ordered By: Wilfrido Ahumada Referrals: Cherelle Meneses DO [Physician] - Discharge Diet: Usual diet Discharge Activity: Resume usual activity Patient Instructions: Opioid Safety, Pain Management, TIA Activity Restrictions/Additional Instructions: Thank you for choosing [facility] for your healthcare needs today. It is very important that you follow up as instructed or that you return to the Emergency Department should you have concerns or if your condition changes or worsens in any way. You are seen today for TIA your symptoms are resolving the time he arrived to the CT of the head did not show anything acute continue your aspirin clopidogrel and atorvastatin case management make arrangements for you to follow-up with neurology Coding Level of Care Code ED Printed Circuit Photographer for Yana Alcaraz
[2024-03-14 14:26] LABS: Glucose Point of Care 244 mg/dL (70-110)
--- NOTE | 2024-03-14 14:37 | ECG_ITS ---
[facility] Test Date: 2024-03-14 Pat Name: Akhil Galloway Department: Room: Gender: Male Gold Marker: : 1960 Requested By: Wilfrido Anderson Order Number: [id number] Libby MD: Milagro Dent M.D. Measurements Intervals [place] Rate: 72 P: 20 WA: 158 QRS: -6 QRSD: 91 T: 33 QT: 387 QTc: 426 Interpretive Statements SINUS RHYTHM SEPTAL MYOCARDIAL INFARCTION , OF INDETERMINATE AGE [40+ ms Q WAVE IN V1/V2] Compared to ECG 11/29/2023 14:52:53 No significant changes Electronically Signed On 03-14-2024 18:18:06 CDT by Milagro Dent M.D. [email or web address]/[id number] f
[2024-03-14 14:50] LABS: Basophils # 0.1 10^3/uL (0.0-0.1); Basophils % 1.1 %; Eosinophils # 0.2 10^3/uL (0.0-0.8); Eosinophils % 3.3 %; Lymphocytes # 1.2 10^3/uL (0.8-4.8); Lymphocytes % 20.4 %; Mean Corpuscular HGB Conc 32.6 g/dL (30-55); Mean Corpuscular Hemoglobin 30.2 pg (27-33); Mean Corpuscular Volume 92.8 fl (82-101); Mean Platelet Volume 10.4 fL (7.4-10.4); Monocytes # 0.5 10^3/uL (0.2-0.9); Monocytes % 8.5 %; Neutrophils # 3.78 10^3/uL (1.8-7.7); Neutrophils % 66.5 %; Nucleated Red Blood Cells % 0 %; Platelet Count 194 10^3/cmm (157-399); Red Blood Count 3.77 10^6/uL (3.85-5.65); White Blood Count 5.68 10^3/uL (3.29-11.43)
[2024-03-14 15:07] LABS: INR 0.94 (0.8-1.2)
[2024-03-14 15:08] LABS: Partial Thromboplastin Time 25.5 SECONDS (23.9-36.7)
[2024-03-14 15:11] LABS: Alanine Aminotransferase 9 U/L (0-41); Albumin Level 3.8 g/dL (3.5-5.2); Alkaline Phosphatase 89 U/L (40-130); Anion Gap 14.2 (5-19); Aspartate Amino Transferase 12 U/L (0-40); Blood Urea Nitrogen 24 mg/dL (8-23); Calcium 8.6 mg/dL (8.5-10.5); Carbon Dioxide 24 mmol/L (22-29); Chloride 105 mmol/L (98-107); Creatinine Clr Calc Pharmacy 101.4487; Globulin 2.2 g/dL (1.3-4.6); Glomerular Filtration Rate 113.9 mL/min (90-130); Glucose 260 mg/dL (65-115); Osmolality Calculated 301 mOsm/kg (285-295); Potassium 4.2 mmol/L (3.5-5.1); Sodium 139 mmol/L (136-145); Total Bilirubin 0.2 mg/dL (0.15-1.2)
[2024-03-14 15:14] VITALS: BP 166/82; PULSE 68; O2SAT 97
[2024-03-14 16:00] VITALS: BP 149/97; PULSE 73; O2SAT 97
[2024-03-14 16:06] LABS: Charge for UA Resulting for Rev
[2024-03-14 16:11] LABS: Bilirubin Urine Negative (Negative); Blood Urine Negative (Negative); Glucose Urine UA 3+ (Normal); Ketones Urine Negative (Negative); Leukocyte Esterase Urine Negative (Negative); Nitrate Urine Negative (Negative); Protein Urine Trace (Negative); Specific Gravity, Urine 1.013 (1.005-1.030); Urine Appearance Clear (CLEAR); Urine Color Yellow (Yellow); Urobilinogen Urine 0.2 mg/dL (Negative)
[2024-03-14 16:17] LABS: Bacteria Urine None Seen /hpf; Hyaline Casts Urine 0-4 /lpf; RBC Urine 0-2 /hpf (0-2); Squamous Epithelial Cell Urine 0-5 /hpf (0-5); WBC Urine 0-5 /hpf (0-5)
[2024-03-14 16:21] LABS: Amphetamines Screen Urine Negative (Negative); Barbiturates Screen Urine Negative (Negative); Benzodiazepines Screen Urine Negative (Negative); Cocaine Screen Urine Negative (Negative); Opiate Screen Urine Negative (Negative); PCP Screen Urine Negative (Negative); THC Screen Urine Negative (Negative)
[2024-03-14 16:41] LABS: UA Slide Review UA Slide Review Perf
[2024-03-14 16:46] VITALS: BP 174/88; PULSE 68; RESP 16; O2SAT 97
--- NOTE | 2024-03-17 07:53 | DCPLANNER ---
messaged neuro for er f/u
== END 2024-03-14 16:49 | disposition home or self-care (01) ==
PROVIDERS: Emergency Provider Family Medicine; PCP Family Medicine Adult Medicine
DX: G45.9 Transient cerebral ischemic attack, unspecified (principal); Z79.85 Long-term (current) use of injectable non-insulin antidiabetic drugs; Z79.84 Long term (current) use of oral hypoglycemic drugs; Z79.4 Long term (current) use of insulin; Z79.02 Long term (current) use of antithrombotics/antiplatelets; Z79.82 Long term (current) use of aspirin; F03.90 Unspecified dementia, unspecified severity, without behavioral disturbance, psychotic disturbance, mood disturbance, and anxiety; I10 Essential (primary) hypertension
CPT/HCPCS: 36416; 70450; 80053; 80306; 81003; 81015; 82962; 85025; 85610; 85730; 93005; 99284

== ENCOUNTER → 2024-03-18 14:34 | Outpatient (BNVA) | payer MEDICARE, SELFPAY | PROVIDERS: PCP Family Medicine Adult Medicine; Referring Provider Family Medicine Adult Medicine; Visit Provider Specialist | DX: G45.9 Transient cerebral ischemic attack, unspecified (principal); F02.B0 Dementia in other diseases classified elsewhere, moderate, without behavioral disturbance, psychotic disturbance, mood disturbance, and anxiety; Z86.69 Personal history of other diseases of the nervous system and sense organs; R26.9 Unspecified abnormalities of gait and mobility; R26.81 Unsteadiness on feet; R29.6 Repeated falls; G30.9 Alzheimer's disease, unspecified; F02.80 Dementia in other diseases classified elsewhere, unspecified severity, without behavioral disturbance, psychotic disturbance, mood disturbance, and anxiety | CPT/HCPCS: 99204; 99205 ==

== ENCOUNTER → 2024-04-22 14:10 | Outpatient (BNVA) | payer MEDICARE, SELFPAY | PROVIDERS: PCP Family Medicine Adult Medicine; Visit Provider Podiatrist Foot & Ankle Surgery | DX: L60.3 Nail dystrophy (principal); L84 Corns and callosities; E11.00 Type 2 diabetes mellitus with hyperosmolarity without nonketotic hyperglycemic-hyperosmolar coma (NKHHC); I73.9 Peripheral vascular disease, unspecified; Z79.4 Long term (current) use of insulin; Z79.84 Long term (current) use of oral hypoglycemic drugs | CPT/HCPCS: 11721 ==

== ENCOUNTER → 2024-06-18 09:25 | Outpatient (BNVA) | payer MEDICARE, SELFPAY | PROVIDERS: PCP Family Medicine Adult Medicine; Visit Provider Specialist | DX: G30.9 Alzheimer's disease, unspecified (principal); R26.9 Unspecified abnormalities of gait and mobility; F02.B0 Dementia in other diseases classified elsewhere, moderate, without behavioral disturbance, psychotic disturbance, mood disturbance, and anxiety; R29.6 Repeated falls; R26.81 Unsteadiness on feet; Z86.69 Personal history of other diseases of the nervous system and sense organs; E11.40 Type 2 diabetes mellitus with diabetic neuropathy, unspecified; E11.319 Type 2 diabetes mellitus with unspecified diabetic retinopathy without macular edema | CPT/HCPCS: 36415; 82607; 83520; 96116; 99214 ==

== ENCOUNTER → 2024-06-24 06:51 | Outpatient (BNVA) | payer MEDICARE, SELFPAY | PROVIDERS: PCP Family Medicine Adult Medicine; Visit Provider Podiatrist Foot & Ankle Surgery | DX: L60.3 Nail dystrophy (principal); L84 Corns and callosities; I73.9 Peripheral vascular disease, unspecified; E11.69 Type 2 diabetes mellitus with other specified complication; Z79.4 Long term (current) use of insulin; Z79.84 Long term (current) use of oral hypoglycemic drugs | CPT/HCPCS: 11055; 11721 ==

== ENCOUNTER 2024-07-13 07:19 | Emergency (ER) | payer MEDICARE, SELFPAY ==
[2024-07-13 07:34] VITALS: BP 177/77; PULSE 61; RESP 18; TEMP 36.6; O2SAT 99; BMI 26.6
[2024-07-13 07:40] LABS: Glucose Point of Care 85 mg/dL (70-110)
[2024-07-13 07:53] LABS: Basophils % 0.5 %; Eosinophils # 0.1 10^3/uL (0.0-0.8); Eosinophils % 0.8 %; Hematocrit 36.4 % (37-53); Lymphocytes # 0.9 10^3/uL (0.8-4.8); Lymphocytes % 14.1 %; Mean Corpuscular HGB Conc 32.4 g/dL (30-55); Mean Corpuscular Hemoglobin 29.9 pg (27-33); Mean Corpuscular Volume 92.4 fl (82-101); Mean Platelet Volume 9.7 fL (7.4-10.4); Monocytes # 0.4 10^3/uL (0.2-0.9); Monocytes % 6.4 %; Neutrophils # 4.74 10^3/uL (1.8-7.7); Neutrophils % 77.9 %; Nucleated Red Blood Cells % 0 %; Platelet Count 185 10^3/cmm (157-399); Red Blood Count 3.94 10^6/uL (3.85-5.65); Red Cell Distribution Width 15.1 % (12.1-15.1); White Blood Count 6.09 10^3/uL (3.29-11.43)
[2024-07-13 08:10] LABS: Alanine Aminotransferase 9 U/L (0-41); Albumin Level 3.9 g/dL (3.5-5.2); Alkaline Phosphatase 90 U/L (40-130); Anion Gap 13.8 (5-19); Aspartate Amino Transferase 13 U/L (0-40); Blood Urea Nitrogen 15 mg/dL (8-23); Calcium 8.6 mg/dL (8.5-10.5); Carbon Dioxide 29 mmol/L (22-29); Chloride 103 mmol/L (98-107); Creatinine Clr Calc Pharmacy 80.0078; Globulin 2.4 g/dL (1.3-4.6); Glucose 94 mg/dL (65-115); Osmolality Calculated 295 mOsm/kg (285-295); Potassium 3.8 mmol/L (3.5-5.1); Sodium 142 mmol/L (136-145); Total Bilirubin 0.3 mg/dL (0.15-1.2); Total Protein 6.3 g/dL (6.6-8.7)
[2024-07-13 08:14] LABS: Bilirubin Urine Negative (Negative); Blood Urine Negative (Negative); Glucose Urine UA Negative (Normal); Ketones Urine Negative (Negative); Leukocyte Esterase Urine Negative (Negative); Nitrate Urine Negative (Negative); Protein Urine 1+ (Negative); Specific Gravity, Urine 1.009 (1.005-1.030); Urine Appearance Clear (CLEAR); Urine Color Yellow (Yellow)
[2024-07-13 08:17] LABS: Add Urine Microscopic? YES; Bacteria Urine None Seen /hpf; Hyaline Casts Urine 0-4 /lpf; RBC Urine 0-2 /hpf (0-2); Squamous Epithelial Cell Urine 0-5 /hpf (0-5); WBC Urine 0-5 /hpf (0-5)
[2024-07-13 09:11] LABS: Glucose Point of Care 61 mg/dL (70-110)
--- NOTE | 2024-07-13 09:14 | W.ED.AMS ---
HPI - Altered Mental Status General: Chief Complaint: Altered Mental Status Stated Complaint: low blood sugar, confused Time Seen by Provider: 07/13/24 07:42 History of Present Illness: 64-year-old male presents with his . Patient has some dementia so gives most of the history. She states that he was found to be hypoglycemic around 2:00 this morning. His blood sugar was 40. He drank a soda and went back to bed. At 7:00 this morning his blood sugar was 36. knew to check his blood sugar because he was acting unusual. He was confused, stammering, shaky. This morning after drinking more soda his blood sugar got up to 89 and he returned back to his baseline. explains that he takes Lantus 20 units twice a day. He also takes metformin 2 tabs twice a day but she does not know the dose. Patient is eating 3 meals a day. Patient reports he is felt like he has been low a couple times this week. He denies any other symptoms or recent illnesses. He has not had any fever, UTI symptoms, vomiting, diarrhea, dehydration, respiratory infection, etc. Now that his sugars return to baseline, he feels great. He has not taken any of his other medications this morning; his blood pressure slightly high. Related Data Home Medications Medication Instructions Recorded Confirmed aspirin 81 mg tablet,delayed 81 mg PO QAM 11/29/23 07/13/24 release Previous Rx's Medication Instructions Recorded clopidogrel 75 mg tablet 75 mg PO DAILY #90 tabs 12/04/23 metformin 500 mg tablet,extended See Rx Instructions .Route 01/29/24 release 24 hr .COMPLEX #360 tabs atorvastatin 40 mg tablet 40 mg PO DAILY #90 tabs 02/12/24 lisinopril 20 mg tablet 20 mg PO DAILY #90 tabs 02/12/24 oxcarbazepine 300 mg tablet 300 mg PO BID #180 tabs 04/08/24 diabetic shoes with 3 inserts #1 ea 04/22/24 insulin glargine 100 unit/mL (3 20 unit (0.2 mL) SUBCUT BID #45 mL 04/28/24 mL) subcutaneous pen (Lantus Solostar U-100 Insulin) citalopram 20 mg tablet 20 mg PO DAILY #90 tabs 06/09/24 galantamine 8 mg tablet 8 mg PO BID #180 tabs 07/11/24 insulin glargine 100 unit/mL (3 30 unit (0.3 mL) SUBCUT QAM #15 mL 07/13/24 mL) subcutaneous pen (Lantus Solostar U-100 Insulin) metformin 500 mg tablet,extended See Rx Instructions .Route 07/13/24 release 24 hr .COMPLEX #90 tabs Allergies Allergy/AdvReac Type Severity Reaction Status Date / Time penicillin G Allergy Mild rash Verified 06/24/24 06:54 Review of Systems General: Reports: 10 or more systems reviewed and unremarkable except in HPI and below Const: Denies: fever(s) [facility] ED PFS: Medical History Insomnia disorder Multiple falls Dementia History of encephalopathy History of seizure disorder last seizure 2017 Benign essential HTN History of short term memory loss Surgical History 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 He appears to have cataracts bilaterally. Pupils are equal round and reactive. No signs of any head trauma. Patient is neurologically at his baseline; no focal deficits. gives most of the history as he is diagnosed with dementia. Patient is now eating a meal tray consisting of eggs, [place] toast, juice, and pudding. Const: COMMON NORMALS: alert and well nourished HENMT: COMMON NORMALS: normocephalic, atraumatic and external ears normal HEAD & SCALP: normocephalic and atraumatic EXTERNAL EAR: Yes external ears normal MOUTH: no muffled voice Eye: COMMON NORMALS: EOMs intact bilaterally, conjunctivae normal and no scleral icterus CONJUNCTIVA: Yes conjunctivae normal Neck/C-Spine: GENERAL: Yes normal visual inspection and Yes trachea midline Resp: COMMON NORMALS: normal respiratory effort, No use of accessory muscles and clear to auscultation bilaterally AUSCULTATION: clear to auscultation bilaterally Cardio: COMMON NORMALS: regular rate and regular rhythm RATE: regular rate RHYTHM: regular rhythm GI: COMMON NORMALS: Soft to palpation and non-tender PALPATION: Yes Soft to palpation and No Guarding due to palpation present (GI) Extremity: COMMON NORMALS: normal to inspection Neuro: COMMON NORMALS: moves all extremities, no focal motor deficits and no sensory deficits noted SENSORIUM/ORIENTATION: Yes alert SPEECH: speech normal Psych: COMMON NORMALS: cooperative, normal affect and speech normal SPEECH: Yes normal speech Skin: COMMON NORMALS: no rashes or lesions noted, turgor normal and no jaundice GENERAL SKIN EXAM: no rashes or lesions noted and turgor normal Course ED course: Patient's blood sugar improved after eating a meal and 1 bag of D10 250 cc. He has remained asymptomatic while he is here. I am going to make 2 changes to his medications. He was taking metformin extended release 2000 mg daily. We are going to reduce this to 1500 mg daily and take all of it in the morning. He was taking Lantus 40 units split half in the morning and half at night. We are going to reduce this to 30 units in the morning only. Patient is stable for discharge. Follow-up with PCP. Vital Signs: Vital signs: Vital Signs Temperature 97.8 F 07/13/24 07:34 Pulse Rate 64 07/13/24 10:02 Respiratory Rate 18 07/13/24 10:02 Blood Pressure 179/89 07/13/24 10:02 Pulse Oximetry 98 07/13/24 10:02 Oxygen Delivery Me thod Room Air 07/13/24 10:02 MDM - Altered Mental Status Medical Decision Making Symptomatic hypoglycemia. is administering the insulin so she knows that it is not being given erroneously. She is giving 20 units twice a day. She is not sure on her metformin dosage and whether it is extended release or immediate release. She lives just down the road; we are going to have her get the medication so we can figure out how much he is being given. The patient's blood sugar was within normal limits on arrival but within an hour, it had started to trend down. He did not develop any neurologic symptoms. Therefore I am going to go ahead and give him a meal tray (which he is eating now) and 250 cc of D10. This should get his blood sugar up and help replete his glycogen stores. My plan is to decrease his Lantus to 20 units in the morning. As long as his metformin dose is reasonable, we will not adjust it. is well versed on how to treat hypoglycemia. Will trend his blood sugars in the emergency department. I did screen him for any secondary causes of hypoglycemia and I cannot find any acute/reversible illness that would precipitate this; therefore, it must be medication induced. Lab Data 07/13/24 07:40 07/13/24 07:40 Laboratory Results WBC 6.09 10^3/uL (3.29-11.43) 07/13/24 07:40 RBC 3.94 10^6/uL (3.85-5.65) 07/13/24 07:40 Hgb 11.80 g/dL (11.27-16.99) 07/13/24 07:40 Hct 36.4 % (37-53) L 07/13/24 07:40 MCV 92.4 fl (82-101) 07/13/24 07:40 MCH 29.9 pg (27-33) 07/13/24 07:40 MCHC 32.4 g/dL (30-55) 07/13/24 07:40 RDW 15.1 % (12.1-15.1) 07/13/24 07:40 Plt Count 185 10^3/cmm (157-399) 07/13/24 07:40 MPV 9.7 fL (7.4-10.4) 07/13/24 07:40 Neut % (Auto) 77.9 % 07/13/24 07:40 Lymph % (Auto) 14.1 % 07/13/24 07:40 [place] % (Auto) 6.4 % 07/13/24 07:40 Eos % (Auto) 0.8 % 07/13/24 07:40 Baso % (Auto) 0.5 % 07/13/24 07:40 Neut # (Auto) 4.74 10^3/uL (1.8-7.7) 07/13/24 07:40 Lymph # (Auto) 0.9 10^3/uL (0.8-4.8) 07/13/24 07:40 [place] # (Auto) 0.4 10^3/uL (0.2-0.9) 07/13/24 07:40 Eos # (Auto) 0.1 10^3/uL (0.0-0.8) 07/13/24 07:40 Baso # (Auto) 0.0 10^3/uL (0.0-0.1) 07/13/24 07:40 Nucleated RBC % (auto) 0 % 07/13/24 07:40 Nucleated RBCs # 0.0 /100WBC 07/13/24 07:40 Sodium 142 mmol/L (136-145) 07/13/24 07:40 Potassium 3.8 mmol/L (3.5-5.1) 07/13/24 07:40 Chloride 103 mmol/L (98-107) 07/13/24 07:40 Carbon Dioxide 29 mmol/L (22-29) 07/13/24 07:40 Anion Gap 13.8 (5-19) 07/13/24 07:40 BUN 15 mg/dL (8-23) 07/13/24 07:40 Creatinine 0.9 mg/dL (0.7-1.2) 07/13/24 07:40 GFR Calculation 85.0 mL/min (90-130) L 07/13/24 07:40 Glucose 94 mg/dL (65-115) 07/13/24 07:40 POC Glucose 275 mg/dL (70-110) H 07/13/24 09:52 Calculated Osmolality 295 mOsm/kg (285-295) 07/13/24 07:40 Calcium 8.6 mg/dL (8.5-10.5) 07/13/24 07:40 Total Bilirubin 0.3 mg/dL (0.15-1.2) 07/13/24 07:40 AST 13 U/L (0-40) 07/13/24 07:40 ALT 9 U/L (0-41) 07/13/24 07:40 Alkaline Phosphatase 90 U/L (40-130) 07/13/24 07:40 Total Protein 6.3 g/dL (6.6-8.7) L 07/13/24 07:40 Albumin 3.9 g/dL (3.5-5.2) 07/13/24 07:40 Globulin 2.4 g/dL (1.3-4.6) 07/13/24 07:40 Urine Color Yellow (Yellow) 07/13/24 08:00 Urine Appearance Clear (CLEAR) 07/13/24 08:00 Urine pH 7.0 (5-7) 07/13/24 08:00 Ur Specific [place] 1.009 (1.005-1.030) 07/13/24 08:00 Urine Protein 1+ (Negative) A 07/13/24 08:00 Urine Glucose (UA) Negative (Normal) 07/13/24 08:00 Urine Ketones Negative (Negative) 07/13/24 08:00 Urine Blood Negative (Negative) 07/13/24 08:00 Urine Nitrate Negative (Negative) 07/13/24 08:00 Urine Bilirubin Negative (Negative) 07/13/24 08:00 Urine Urobilinogen 1.0 mg/dL (Negative) 07/13/24 08:00 Ur Leukocyte Esterase Negative (Negative) 07/13/24 08:00 Urine RBC 0-2 /hpf (0-2) 07/13/24 08:00 Urine WBC 0-5 /hpf (0-5) 07/13/24 08:00 Ur Squamous Epith Cells 0-5 /hpf (0-5) 07/13/24 08:00 Amorphous Sediment Not Reportable 07/13/24 08:00 Urine Bacteria None seen /hpf (NONE) 07/13/24 08:00 Hyaline Casts 0-4 /lpf H 07/13/24 08:00 No radiology studies performed this visit Discharge Plan Discharge Patient Disposition: Home Clinical Impression: Hypoglycemia due to type 2 diabetes mellitus Condition: Stable Prescriptions: New metformin 500 mg tablet extended release 24 hr See Rx Instructions .ROUTE .COMPLEX Qty: 90 0RF Rx Instructions: 1,500 mg orally in the morning insulin glargine [Lantus Solostar U-100 Insulin] 100 unit/mL (3 mL) insulin pen 30 unit SUBCUT QAM Qty: 15 0RF No Action (DME) diabetic shoes with 3 inserts See Rx Instructions .Route .MEDSUPPLY Qty: 1 0RF Rx Instructions: As directed to HOME metformin 500 mg tablet extended release 24 hr See Rx Instructions .ROUTE .COMPLEX Qty: 360 0RF Hold Instructions: Resume on 12/06/23. Dose Instruction: TAKE 2 TABLETS BY MOUTH TWICE DAILY Rx Instructions: TAKE 2 TABLETS BY MOUTH TWICE DAILY atorvastatin 40 mg tablet 40 mg PO DAILY Qty: 90 1RF lisinopril 20 mg tablet 20 mg PO DAILY Qty: 90 1RF oxcarbazepine 300 mg tablet 300 mg PO BID Qty: 180 1RF insulin glargine [Lantus Solostar U-100 Insulin] 100 unit/mL (3 mL) insulin pen 20 unit SUBCUT BID Qty: 45 3RF citalopram 20 mg tablet 20 mg PO DAILY Qty: 90 0RF Rx Instructions: Patient needs an appt. galantamine 8 mg tablet 8 mg PO BID Qty: 180 3RF Rx Instructions: administer with AM and PM meals clopidogrel 75 mg Tablet 75 mg PO DAILY Qty: 90 3RF aspirin 81 mg tablet,delayed release (DR/EC) 81 mg PO QAM Discharge Orders: Discharge ED (Routine); Ordered 07/13/24 Ordered By: Lincoln Lu Referrals: Eliseo Cabrera MD [Primary Care Provider] - Discharge Diet: Diabetic Patient Instructions: Hypoglycemia in a Person with Diabetes (ED), Pain Management Activity Restrictions/Additional Instructions: There have been 2 medication changes. Metformin extended release has been changed to 1500 mg once with breakfast in the morning. Lantus has been changed to 30 units in the morning with breakfast. You will no longer be taking metformin or Lantus in the evening. If he has signs of low blood sugar, give him fruit juice, soda, or something with easily absorbable sugar such as honey. If he continues to have episodes of low blood sugar, his medication may need to be adjusted further. Coding Level of Care Code ED Multicut Line Operator for Yana Alcaraz
[2024-07-13] MEDS: lisinopril 20 mg Tablet PO (09:23)
[2024-07-13] MEDS: dextrose 10% 250 ML 1000 ML IV (09:24)
[2024-07-13 09:55] LABS: Glucose Point of Care 275 mg/dL (70-110)
[2024-07-13 10:02] VITALS: BP 179/89; PULSE 64; RESP 18; O2SAT 98
[2024-07-13 10:12] VITALS: BP 179/89; PULSE 64; RESP 16; O2SAT 98
== END 2024-07-13 10:14 | disposition home or self-care (01) ==
PROVIDERS: Emergency Provider Emergency Medicine; PCP Family Medicine Adult Medicine
DX: E11.649 Type 2 diabetes mellitus with hypoglycemia without coma (principal); Z79.84 Long term (current) use of oral hypoglycemic drugs; Z79.02 Long term (current) use of antithrombotics/antiplatelets; Z79.82 Long term (current) use of aspirin; I10 Essential (primary) hypertension
CPT/HCPCS: 36416; 80053; 81001; 82962; 85025; 96360; 99284; J7799

== ENCOUNTER 2024-07-18 15:16 | Emergency (ER) | payer MEDICARE, SELFPAY ==
[2024-07-18 15:22] VITALS: BP 183/103; PULSE 69; RESP 16; TEMP 36.6; O2SAT 99; BMI 25.0
--- NOTE | 2024-07-18 15:47 | CTR_ITS ---
PROCEDURE INFORMATION: Exam: CT Head Without Contrast Exam date and time: 07/18/2024 4:01 PM Age: 64 years old Clinical indication: Injury or trauma; Fall; Blunt trauma (contusions or hematomas); Additional info: Head and neck pain S/P fall TECHNIQUE: Imaging protocol: Computed tomography of the head without contrast. Radiation optimization: All CT scans at this facility use at least one of these dose optimization techniques: automated exposure control; mA and/or kV adjustment per patient size (includes targeted exams where dose is matched to clinical indication); or iterative reconstruction. COMPARISON: CT head thrombolytic [id number] 03/14/2024 2:13 PM RADIATION DOSE METRICS: Total DLP (mGy-cm): 1099.4 FINDINGS: Brain: No hemorrhage. No edema. Encephalomalacia noted in the anterior/inferior left frontal lobe. Moderate diffuse cerebral atrophy. No mass effect. Cerebral ventricles: No ventriculomegaly. Paranasal sinuses: Visualized sinuses are unremarkable. No fluid levels. Mastoid air cells: Visualized mastoid air cells are well aerated. Bones: Left frontal craniotomy changes. No acute fracture. Soft tissues: Unremarkable. CT/CT head wo con* [id number] IMPRESSION: No acute intracranial abnormality.
--- NOTE | 2024-07-18 15:47 | CTR_ITS ---
PROCEDURE INFORMATION: Exam: CT Cervical Spine Without Contrast Exam date and time: 07/18/2024 4:01 PM Age: 64 years old Clinical indication: Injury or trauma; Fall; Blunt trauma; Additional info: Fall with loc head and neck pain TECHNIQUE: Imaging protocol: Computed tomography of the cervical spine without contrast. Radiation optimization: All CT scans at this facility use at least one of these dose optimization techniques: automated exposure control; mA and/or kV adjustment per patient size (includes targeted exams where dose is matched to clinical indication); or iterative reconstruction. COMPARISON: CT cervical spin wo con* [id number] 02/06/2024 3:50 AM RADIATION DOSE METRICS: Total DLP (mGy-cm): 222.5 FINDINGS: Bones: No acute fracture. Normal alignment. No significant disc bulge or herniation. No severe spinal canal stenosis. No significant neural foraminal narrowing. Lungs: Lung apices are normal. Soft tissues: Unremarkable. CT/CT cervical spin wo con* [id number] IMPRESSION: No acute findings.
--- NOTE | 2024-07-18 15:47 | XRR_ITS ---
PROCEDURE INFORMATION: Exam: XR Left Shoulder Exam date and time: 07/18/2024 3:56 PM Age: 64 years old Clinical indication: Injury or trauma; Fall; Blunt trauma (contusions or hematomas); Shoulder; Left; Additional info: Fall with injury TECHNIQUE: Imaging protocol: Radiologic exam of the left shoulder. Views: 2 or more views. COMPARISON: CR XR chest 1V portable [id number] 07/18/2024 3:55 PM FINDINGS: Bones/joints: Normal. Soft tissues: Normal. XR/XR shoulder LT min 2V* [id number] IMPRESSION: No acute findings.
--- NOTE | 2024-07-18 15:47 | XRR_ITS ---
PROCEDURE INFORMATION: Exam: XR Chest Exam date and time: 07/18/2024 3:55 PM Age: 64 years old Clinical indication: Injury or trauma; Fall; Blunt trauma (contusions or hematomas); Additional info: Fall down stairs TECHNIQUE: Imaging protocol: Radiologic exam of the chest. Views: 1 view. COMPARISON: CR XR chest 1V portable [id number] 11/29/2023 1:09 PM FINDINGS: Lungs: Unremarkable. No consolidation. Pleural spaces: Unremarkable. No pleural effusion. No pneumothorax. Heart/Mediastinum: Unremarkable. No cardiomegaly. Bones/joints: Unremarkable. XR/XR chest 1V portable [id number] IMPRESSION: No acute findings.
--- NOTE | 2024-07-18 15:55 | ED_ITS ---
HPI - Fall General: Chief Complaint: Fall Stated Complaint: FALL, HIT HEAD Time Seen by Provider: 07/18/24 15:42 History of Present Illness: 64-year-old male presents the emergency department chief complaint of fall down about 4 stairs just prior to arrival. He presents to the ER with family present patient's fall was unwitnessed by family patient does have a history of dementia patient did strike the back of his head he reports head neck pain as well as left-sided shoulder pain patient had a questionable positive loss of consciousness he is on Plavix. Patient presents to the emergency department for further assessment and management. Associated symptoms-after fall: Denies abdominal pain, chest pain or headache(s) Related Data Home Medications Medication Instructions Recorded Confirmed aspirin 81 mg tablet,delayed 81 mg PO QAM 11/29/23 07/18/24 release doxepin 10 mg capsule 10 mg PO .At Bedtime PRN insomnia 07/15/24 07/18/24 Previous Rx's Medication Instructions Recorded diabetic shoes with 3 inserts #1 ea 04/22/24 citalopram 20 mg tablet 20 mg PO DAILY #90 tabs 06/09/24 galantamine 8 mg tablet 8 mg PO BID #180 tabs 07/11/24 insulin glargine 100 unit/mL (3 30 unit (0.3 mL) SUBCUT QAM #15 mL 07/13/24 mL) subcutaneous pen (Lantus Solostar U-100 Insulin) metformin 500 mg tablet,extended See Rx Instructions .Route 07/13/24 release 24 hr .COMPLEX #90 tabs atorvastatin 40 mg tablet 40 mg PO DAILY #90 tabs 07/15/24 clopidogrel 75 mg tablet 75 mg PO DAILY #90 tabs 07/15/24 lisinopril 40 mg tablet 40 mg PO DAILY #30 tabs 07/15/24 oxcarbazepine 300 mg tablet 300 mg PO BID #180 tabs 07/15/24 Allergies Allergy/AdvReac Type Severity Reaction Status Date / Time penicillin G Allergy Mild rash Verified 07/15/24 10:15 Review of Systems General: Reports: 10 or more systems reviewed and unremarkable except in HPI and below Const: Denies: fever(s), chills, fatigue or malaise Eyes: Denies: change in vision or blurry vision Card: Denies: chest pain or palpitations Resp: Denies: dyspnea or productive cough GI: Denies: abdominal pain, nausea or vomiting : Denies: flank pain Musc: Denies: extremity pain or extremity swelling Skin/Breast: Reports: other (Abrasion and contusion appreciated the posterior occiput no other injuries ); Denies: rash or pruritus Neuro: Denies: headache(s) Psych: Denies: anxiety or depression Siva/Lymph: Denies: easy bleeding All/Imm: Denies: urticaria, throat swelling or facial swelling PFSH ED PFSH: Medical History CAD (coronary artery disease) Insomnia disorder Multiple falls Dementia History of encephalopathy History of seizure disorder last seizure 2018 Benign essential HTN History of short term memory loss Surgical History 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 Family History Father Heart disease Mother Cancer Social History Smoking and tobacco/nicotine status: never used tobacco/nicotine Alcohol intake: never Substance/Drug Use: never Household members: spouse Housing: House Highest education level completed: 11th Grade Current occupational status: disabled Physical Exam Const: COMMON NORMALS: no acute distress, patient oriented x3 and healthy appearing HENMT: COMMON NORMALS: not normocephalic and head/scalp not atraumatic (Small contusion abrasion appreciated to the posterior occiput no obvious cr) HEAD & SCALP: not normocephalic and not atraumatic (Small contusion abrasion appreciated to the posterior occiput no obvious cr) Eye: COMMON NORMALS: Equal, round and reactive pupils present and EOMs intact bilaterally PUPIL: Yes Equal, round and reactive pupils present Neck/C-Spine: COMMON NORMALS: full ROM, supple and no JVD Lymph: LYMPHATIC: no lymphadenopathy noted Chest: COMMONS NORMALS: normal inspection of the chest and normal palpation of entire chest wall Resp: COMMON NORMALS: normal respiratory effort, No retractions and clear to auscultation bilaterally EFFORT & INSPECTION: Yes able to speak in complete sentences and Yes symmetric chest movement AUSCULTATION: clear to auscultation bilaterally Cardio: COMMON NORMALS: no JVD, regular rate and regular rhythm RATE: regular rate RHYTHM: regular rhythm GI: COMMON NORMALS: Normal to inspection, nondistended, normoactive bowel sounds present, Soft to palpation and non-tender INSPECTION: Yes normal to inspection PALPATION: Yes Soft to palpation : COMMON NORMALS: Yes no CVA tenderness BLADDER/KIDNEY EXAM: Yes no CVA tenderness Back/Pelvis: COMMON NORMALS: no CVA tenderness Extremity: COMMON NORMALS: negative for normal to inspection and negative for full ROM (Mild pain to palpation with movement of the left shoulder and obvious crepi) Neuro: COMMON NORMALS: patient oriented x3, CN's II-XII intact bilaterally, moves all extremities and no focal motor deficits Psych: COMMON NORMALS: mental status grossly normal, Normal thought process present, cooperative and normal affect THOUGHT PROCESS: Normal thought process present Skin: COMMON NORMALS: no rashes or lesions noted GENERAL SKIN EXAM: no rashes or lesions noted Course Vital Signs: Vital signs: Vital Signs Temperature 97.8 F 07/18/24 15:22 Pulse Rate 72 07/18/24 17:23 Respiratory Rate 16 07/18/24 15:22 Blood Pressure 167/84 07/18/24 17:23 Pulse Oximetry 99 07/18/24 17:23 Oxygen Delivery Me thod Room Air 07/18/24 15:22 MDM - Fall Medical Decision Making Due to patient's symptoms and condition CT imaging of the head and C-spine will be obtained patient wanted further investigation was complaining left-sided sh oulder pain will be obtaining chest x-ray and shoulder x-ray will continue to follow All patient's imaging came back as very unremarkable per radiology patient stable for discharge home did advise further follow-up with primary care as needed in 3 to 5 days and was to return the interim if any of his symptoms persist or worse. Lab Data Radiology Impressions Cervical Spine CT 07/18/24 15:47 IMPRESSION: No acute findings. Chest X-Ray 07/18/24 15:47 IMPRESSION: No acute findings. Head CT 07/18/24 15:47 IMPRESSION: No acute intracranial abnormality. Shoulder X-Ray 07/18/24 15:47 IMPRESSION: No acute findings. All radiology interpretation(s) finalized by discharge Discharge Plan Discharge Patient Disposition: Home Clinical Impression: Fall from stairs, Closed head injury with loss of consciousness of unknown duration, Left shoulder strain, Abrasion of scalp without infection Condition: Stable Prescriptions: No Action (DME) diabetic shoes with 3 inserts See Rx Instructions .Route .MEDSUPPLY Qty: 1 0RF Rx Instructions: As directed to HOME doxepin 10 mg capsule 10 mg PO .At Bedtime PRN (Reason: insomnia) lisinopril 40 mg tablet 40 mg PO DAILY Qty: 30 1RF atorvastatin 40 mg tablet 40 mg PO DAILY Qty: 90 1RF clopidogrel 75 mg tablet 75 mg PO DAILY Qty: 90 3RF oxcarbazepine 300 mg tablet 300 mg PO BID Qty: 180 1RF citalopram 20 mg tablet 20 mg PO DAILY Qty: 90 0RF Rx Instructions: Patient needs an appt. galantamine 8 mg tablet 8 mg PO BID Qty: 180 3RF Rx Instructions: administer with AM and PM meals metformin 500 mg tablet extended release 24 hr See Rx Instructions .ROUTE .COMPLEX Qty: 90 0RF Rx Instructions: 1,500 mg orally in the morning insulin glargine [Lantus Solostar U-100 Insulin] 100 unit/mL (3 mL) insulin pen 30 unit SUBCUT QAM Qty: 15 0RF aspirin 81 mg tablet,delayed release (DR/EC) 81 mg PO QAM Discharge Orders: Discharge ED (Routine); Ordered 07/18/24 Ordered By: Mateo Esparza Referrals: Heri Padilla MD [Primary Care Provider] - 1-3 days Discharge Diet: Cardiac Discharge Activity: Increase activity as tolerated Patient Instructions: Concussion (ED), Head Injury (ED), Shoulder Sprain (ED) Activity Restrictions/Additional Instructions: It is recommended you further follow-up your primary care doctor in 3 to 5 days you can use [id number] ibuprofen per package instruction for any increased pain or discomfort please return the interim if any of your symptoms persist or worse. Coding Level of Care Code ED Binding Bench Worker for Yana Alcaraz
[2024-07-18 17:23] VITALS: BP 167/84; PULSE 72; O2SAT 99
[2024-07-18 17:44] VITALS: BP 169/87; PULSE 73; O2SAT 98
== END 2024-07-18 18:03 | disposition home or self-care (01) ==
PROVIDERS: Emergency Provider Emergency Medicine; PCP Family Medicine
DX: S00.01XA Abrasion of scalp, initial encounter (principal); S46.912A Strain of unspecified muscle, fascia and tendon at shoulder and upper arm level, left arm, initial encounter; S09.8XXA Other specified injuries of head, initial encounter; W10.9XXA Fall (on) (from) unspecified stairs and steps, initial encounter; Z79.84 Long term (current) use of oral hypoglycemic drugs; Z79.4 Long term (current) use of insulin; Z79.82 Long term (current) use of aspirin; I25.10 Atherosclerotic heart disease of native coronary artery without angina pectoris; I10 Essential (primary) hypertension
CPT/HCPCS: 70450; 71045; 72125; 73030; 99284

== ENCOUNTER → 2024-07-21 10:35 | Outpatient (BNVA) | payer MEDICARE, SELFPAY | PROVIDERS: PCP Family Medicine; Visit Provider Internal Medicine Cardiovascular Disease | DX: R06.02 Shortness of breath (principal); R06.09 Other forms of dyspnea; I25.10 Atherosclerotic heart disease of native coronary artery without angina pectoris; I10 Essential (primary) hypertension; E78.5 Hyperlipidemia, unspecified; E11.9 Type 2 diabetes mellitus without complications; Z79.4 Long term (current) use of insulin | CPT/HCPCS: 36415; 80048; 83880; 99214 ==

== ENCOUNTER 2024-08-20 06:04 | Outpatient (CLI) | payer MEDICARE, SELFPAY ==
--- NOTE | 2024-08-20 06:15 | USCV_ITS ---
[facility] Age: 64 Gender: M : 1960 Exam Date: 08/20/2024 06:26 Ordering Phys: Milagro Dent MD ([email or web address]) Technologist: [place] [facility] [place]: cp hx of cva BP: 150 / 85 HR: 455 Rhythm: Sinus Technical Quality: Adequate MEASUREMENTS (Male / Female) Normal Values 2D ECHO LV Diastolic Diameter PLAX 4.2 cm 4.2 - 5.9 / 3.9 - 5.3 cm IVS Diastolic Thickness 1.4 cm 0.6 - 1.0 / 0.6 - 0.9 cm IVS Systolic Thickness 2.0 cm LVPW Diastolic Thickness 1.2 cm 0.6 - 1.0 / 0.6 - 0.9 cm LVPW Systolic Thickness 1.7 cm LVOT Diameter 2.1 cm LV Ejection Fraction 2D Teich 74.2 % LV Ejection Fraction MOD 4C 54.8 % LV Ejection Fraction MOD 2C 61.0 % LV Ejection Fraction 2C AL 61.5 % LA Diameter 3.5 cm RA Systolic Volume 4C AL 32.8 ml RA Systolic Volume 4C MOD 31.5 ml LA Sys Volume AL 49.3 cm cubed LA Sys Volume Index AL 27.6 cm cubed/m squared Aorta at Sinotubular Diameter 3.1 cm M-MODE LA Ao Ratio MM 1.3 AV Cusp Separation MM 2.6 cm DOPPLER AV Peak Velocity 105.0 cm/s LVOT Peak Velocity 38.0 cm/s AV Area Cont Eq vti 1.3 cm squared AV Area Cont Eq pk 1.2 cm squared MV Peak Velocity 104.0 cm/s MV Area PHT 3.2 cm squared Mitral E to A Ratio 0.8 TV Peak Velocity 116.0 cm/s TR Peak Velocity 149.0 cm/s TR Peak Gradient 8.9 mmHg TV Peak E Velocity 87.0 cm/s PV Peak Velocity 91.0 cm/s FINDINGS Left Ventricle Mildly increased left ventricular cavity size. Mildly decreased left ventricular systolic function. Left ventricular ejection fraction is estimated at 45 %. Global left ventricular hypokinesis. Grade I/IV diastolic dysfunction (abnormal relaxation filling pattern), normal to mildly elevated filling pressures. Right Ventricle The right ventricle is normal in size and function. Right Atrium The right atrium is normal in size. Left Atrium Mildly increased left atrial size. Mitral Valve Moderately thickened mitral valve. Mild mitral annular calcification. No mitral valve stenosis. Mild to moderate mitral valve regurgitation. Aortic Valve Moderate aortic valve calcification. Mild aortic valve restriction with somewhat restriction, aortic valve area may not be accurate due to technical difficulty. Tricuspid Valve Structurally normal tricuspid valve without significant stenosis or regurgitation. Pulmonary artery systolic pressure is normal. Pulmonic Valve Structurally normal pulmonic valve without significant stenosis. There is no pulmonic regurgitation. Pericardium Normal pericardium without effusion. Aorta Normal ascending aorta dimension. IVC The inferior vena cava appears normal. CONCLUSIONS Mildly increased left ventricular cavity size. Mildly decreased left ventricular systolic function. Left ventricular ejection fraction is estimated at 45 %. Global left ventricular hypokinesis. Grade I/IV diastolic dysfunction (abnormal relaxation filling pattern), normal to mildly elevated filling pressures. Mildly increased left atrial size. Moderately thickened mitral valve. Mild mitral annular calcification. No mitral valve stenosis. Mild to moderate mitral valve regurgitation. Moderate aortic valve calcification. Mild aortic valve restriction with somewhat restriction, aortic valve area may not be accurate due to technical difficulty. There is no pericardial effusion. Right atrial pressure is around 5 mm of mercury. Roldan Flood MD (Electronically Signed) Final Date: 30 August 2024 17:31 S
== END 2024-08-20 06:05 | disposition home or self-care (01) ==
LOC: RAD 06:12
PROVIDERS: PCP Family Medicine; Visit Provider Internal Medicine Cardiovascular Disease
DX: R06.09 Other forms of dyspnea (principal); R93.1 Abnormal findings on diagnostic imaging of heart and coronary circulation; I51.7 Cardiomegaly; I34.81 Nonrheumatic mitral (valve) annulus calcification; I34.0 Nonrheumatic mitral (valve) insufficiency; I35.8 Other nonrheumatic aortic valve disorders
CPT/HCPCS: 93306

== ENCOUNTER → 2024-08-26 06:50 | Outpatient (BNVA) | payer MEDICARE, SELFPAY | PROVIDERS: PCP Family Medicine; Visit Provider Podiatrist Foot & Ankle Surgery | DX: E11.69 Type 2 diabetes mellitus with other specified complication (principal); L60.3 Nail dystrophy; L84 Corns and callosities; I73.9 Peripheral vascular disease, unspecified; Z79.4 Long term (current) use of insulin; Z79.84 Long term (current) use of oral hypoglycemic drugs | CPT/HCPCS: 11055; 11721 ==

== ENCOUNTER → 2024-08-29 13:15 | Outpatient (BNVA) | payer MEDICARE, SELFPAY | PROVIDERS: PCP Family Medicine; Visit Provider Emergency Medicine | DX: S59.901A Unspecified injury of right elbow, initial encounter (principal); M70.21 Olecranon bursitis, right elbow; R93.6 Abnormal findings on diagnostic imaging of limbs; M77.8 Other enthesopathies, not elsewhere classified | CPT/HCPCS: 73080; 87070; 87205 ==

== ENCOUNTER → 2024-09-18 07:35 | Outpatient (BNVA) | payer MEDICARE, SELFPAY | PROVIDERS: PCP Family Medicine; Visit Provider Specialist | DX: F02.B0 Dementia in other diseases classified elsewhere, moderate, without behavioral disturbance, psychotic disturbance, mood disturbance, and anxiety (principal); Z86.69 Personal history of other diseases of the nervous system and sense organs; E11.40 Type 2 diabetes mellitus with diabetic neuropathy, unspecified; E11.319 Type 2 diabetes mellitus with unspecified diabetic retinopathy without macular edema; R03.0 Elevated blood-pressure reading, without diagnosis of hypertension; R26.81 Unsteadiness on feet | CPT/HCPCS: 99214 ==

== ENCOUNTER → 2024-11-04 06:36 | Outpatient (BNVA) | payer MEDICARE, SELFPAY | PROVIDERS: PCP Family Medicine; Visit Provider Podiatrist Foot & Ankle Surgery | DX: E11.69 Type 2 diabetes mellitus with other specified complication (principal); L60.3 Nail dystrophy; L84 Corns and callosities; I73.9 Peripheral vascular disease, unspecified; S93.401A Sprain of unspecified ligament of right ankle, initial encounter; S93.402A Sprain of unspecified ligament of left ankle, initial encounter; X50.1XXA Overexertion from prolonged static or awkward postures, initial encounter; Z79.84 Long term (current) use of oral hypoglycemic drugs; Z79.4 Long term (current) use of insulin | CPT/HCPCS: 11055; 11721; 99213 ==

== ENCOUNTER → 2025-01-07 14:13 | Outpatient (BNVA) | payer MEDICARE, SELFPAY | PROVIDERS: PCP Family Medicine; Visit Provider Podiatrist Foot & Ankle Surgery | DX: E11.69 Type 2 diabetes mellitus with other specified complication (principal); L60.3 Nail dystrophy; L84 Corns and callosities; I73.9 Peripheral vascular disease, unspecified; Z79.4 Long term (current) use of insulin; Z79.84 Long term (current) use of oral hypoglycemic drugs | CPT/HCPCS: 11056; 11721 ==

== ENCOUNTER 2025-02-20 08:34 | Outpatient (CLI) | payer MEDICARE, SELFPAY ==
--- NOTE | 2025-02-20 08:45 | XR_ITS ---
WS: [id number] XR lumbar spine 2-3V* [id number] REASON FOR EXAM: Falls with contusions to back FINDINGS: Mild levoscoliosis. Relatively normal lordosis. Old compression deformity of the L1 seen on previous KUB 01/04/2024. No other significant abnormality of the lumbar vertebrae. Moderate narrowing of the L5-S1 disc space with degenerative gas and mild endplate sclerosis and osteophytosis. No spondylolysis. No significant spondylolisthesis. Moderate degenerative arthropathy in the facet joints L4-S1. Unusual large chronic left upper quadrant calcification possibly related to the spleen. XR/XR lumbar spine 2-3V* [id number] IMPRESSION: No acute abnormality. Degenerative spondylosis as above.
--- NOTE | 2025-02-20 08:45 | XR_ITS ---
WS: [id number] XR thoracic spine 3V* [id number] REASON FOR EXAM: falls FINDINGS: Relatively normal thoracic spine curvatures. Mild superior endplate compression deformities T3-T5. Associated mild disc space narrowing and mild endplate sclerosis and osteophytosis. Similar but milder changes in the remainder of the thoracic spine. No acute vertebral body compression deformity. XR/XR thoracic spine 3V* [id number] IMPRESSION: Mild compression deformities and degenerative spondylosis in thoracic spine as above. No acute abnormality identified.
== END 2025-02-20 08:35 | disposition home or self-care (01) ==
LOC: RAD 08:37
PROVIDERS: PCP Family Medicine; Visit Provider Family Medicine Adult Medicine
DX: M47.814 Spondylosis without myelopathy or radiculopathy, thoracic region (principal); M47.816 Spondylosis without myelopathy or radiculopathy, lumbar region; R29.6 Repeated falls; M43.8X4 Other specified deforming dorsopathies, thoracic region
CPT/HCPCS: 72072; 72100

== ENCOUNTER → 2025-03-11 14:06 | Outpatient (BNVA) | payer MEDICARE, SELFPAY | PROVIDERS: PCP Family Medicine; Visit Provider Podiatrist Foot & Ankle Surgery | DX: E11.69 Type 2 diabetes mellitus with other specified complication (principal); L60.3 Nail dystrophy; L84 Corns and callosities; I73.9 Peripheral vascular disease, unspecified; Z79.4 Long term (current) use of insulin; Z79.84 Long term (current) use of oral hypoglycemic drugs | CPT/HCPCS: 11721 ==

== ENCOUNTER 2025-03-12 22:06 | Emergency (ER) | payer MEDICARE, SELFPAY ==
--- OUTSIDE RECORDS SUMMARY | 2018-04-05 13:01 | XMS_ITS | Continuity of Care Document ---
Author Organization [facility] Address [address] [place] [address] Phone Care Team Providers Care Shelter Supervisor Name Role Phone Ching Cortes MD Unavailable Unavailable Procedures Procedure Date Craniotomy/brain Abscess-supra 16 Ih Daily Care/expanded Ih Daily Care/expanded Ih Daily Care/expanded Initial Hospital/mod Complexity 016 Advance Directives Directive Yes / No Effective Date File Name No Information Encounters Encounter Description Practice Location Reason(s) For Visit Diagnoses Date Provider Providers Copied on Encounter [facility], [address] [place] [address], [address] [place] [address], tel:[phone] No Information 8 Sebastian Flower. [address] [place] [address], [address] [place] [address] , . tel:[phone] [facility], [address] [place] [address], [address] [place] [address], tel:[phone] [facility] No Information 6 Iván Nunez. [address] [place] [address], [id number] , . tel:[phone] Referring Provider: Enrique Anderson, [address] [place] [address], [id number] . tel:[phone] Ih Daily Care/expanded [facility], [address] [place] [address], [address] [place] [address], tel:[phone] [facility] No Information 6 May Call. [address] [place] [address], [id number] , . [phone] Referring Provider: Brian Heller, [facility] [address] [place] [address], [id number] . tel:[phone] Ih Daily Care/expanded [facility], [address] [place] [address], [id number], tel:[phone] [facility] No Information 6 May Call. [address] [place] [address], [id number] , [place]. [phone] Referring Provider: Brian Heller, [facility] [address] [place] [address], [id number] . tel:[phone] Ih Daily Care/expanded [facility], [address] [place] [address], [id number], tel:[phone] [facility] No Information 6 [facility] Ulices. [address] [place] [address], [id number] , [place]. tel:[phone] Referring Provider: Brian Heller, [facility] [address] [place] [address], [id number] . tel:[phone] Initial Hospital/mod Complexity [facility], [address] [place] [address], [id number], tel:[phone] [facility] No Information 6 Gerald Garcia. [address] [place] [address], [id number] , [place]. tel:[phone] Referring Provider: Brian Heller, [facility] [address] [place] [address], [id number] . tel:[phone] Family History Family Member Type Diagnosis Age At Onset No Information Payers Payer name Insurance type Covered green party ID Ermias durham(s) [employer] Preferred CI [id number] Social History Type Description Quantity Date Captured Comments Sex Male Smoking Status No Information Chief Complaint And Reason For Visit No Information Reason For Referral Reason For Referral No Information History Of Present Illness Encounter Date Complaint History Of Prese nt Illness No Information Functional Status Date Functional Assessmen t No Information Instructions Date Instruction Additional Infor mation No Information Assessments Type Assessment Date No Information Patient Care Teams Name Effective Dates (start - stop) Status Members No Information
--- OUTSIDE RECORDS SUMMARY | 2019-05-15 05:45 | XMS_ITS | Continuity of Care Document ---
Author Organization [facility] Address [address] [address] Phone Care Team Providers Care Bike Shop Manager Name Role Phone Allen Isidro MD Unavailable Unavailabl e Allergies, Adverse Reactions, Alerts Substance Reaction Status Criticality PENICILLIN Active No Information Procedures Procedure Date Computerized Ophthalmic Imaging Retina A Office Consultation New/Estab Patient 60 Min Advance Directives Directive Yes / No Effective Date File Name No Information Encounters Encounter Description Practice Location Reason(s) For Visit Diagnoses Date Provider Providers Copied on Encounter [facility], [address] [place] [address], [id number], tel:[phone] [facility] [place] No Information 9 Dwaine Villa . [address] [place] [address], [id number] . tel:[phone] Office Consultation New/Estab Patient 60 Min [facility], [address] [place] [address], [id number], tel:[phone] [facility] [place] Consult (chief complaint) Type 2 diabetes mellitus w/ mild nonproliferative diabetic retinopathy w/o macular edema of bilateral eyesNuclear sclerotic cataract bilateral 9 Dwaine Villa . [address] [place] [address], [id number] . tel:[phone] Referring Provider: Paul Donohue, [address] [facility] [address], [place], [address]. tel:[phone] Family History Family Member Type Diagnosis Age At Onset Problem (finding) Family history of Diabe priyanka mellitus Problem (finding) Family history of Cance r, unknown Problem (finding) Family history of hyper tension Payers Payer name Insurance type Covered alliance party ID Ermias durham(s) [place] [facility] [employer] [id number] Social History Type Description Quantity Date Captured [...]
[2025-03-12 22:06] VITALS: BP 140/74; PULSE 83; RESP 18; TEMP 36.9; O2SAT 97; BMI 27.8
--- NOTE | 2025-03-12 22:13 | CTR_ITS ---
PROCEDURE INFORMATION: Exam: CT Head Without Contrast Exam date and time: 03/12/2025 10:34 PM Age: 64 years old Clinical indication: Injury or trauma; Without residual foreign body; Scalp; Prior surgery; Surgery date: 6+ months; Surgery type: Craniectomy; Fall with posterior headstrike. Laceration to left upper posterior. History of CVA. Anticoagulated. TECHNIQUE: Imaging protocol: Computed tomography of the head without contrast. Radiation optimization: All CT scans at this facility use at least one of these dose optimization techniques: automated exposure control; mA and/or kV adjustment per patient size (includes targeted exams where dose is matched to clinical indication); or iterative reconstruction. COMPARISON: CT head wo con* [id number] 07/18/2024 4:01 PM RADIATION DOSE METRICS: Total DLP (mGy-cm): 1071.54 FINDINGS: Tubes, catheters and devices: Bandage overlying the posterior scalp at site of presumptive head strike. Brain: See Cerebral ventricles finding. Cerebral ventricles: [id number] involutional changes of the ventricles and sulci. Encephalomalacia changes of the right anterior and inferior frontal lobe. Ex vacuo dilatation of the left ventricle. Craniotomy changes of the left frontal calvarium. Paranasal sinuses: Visualized sinuses are unremarkable. No fluid levels. Mastoid air cells: Visualized mastoid air cells are well aerated. Bones: See Cerebral ventricles finding. Soft tissues: Unremarkable. CT/CT head wo con* [id number] IMPRESSION: No definite acute intracranial abnormality.
--- NOTE | 2025-03-12 22:13 | CTR_ITS ---
PROCEDURE INFORMATION: Exam: CT Cervical Spine Without Contrast Exam date and time: 03/12/2025 10:36 PM Age: 64 years old Clinical indication: Injury or trauma; Blunt trauma; Fall with posterior headstrike. Laceration to left upper posterior. History of CVA. Anticoagulated. TECHNIQUE: Imaging protocol: Computed tomography of the cervical spine without contrast. Radiation optimization: All CT scans at this facility use at least one of these dose optimization techniques: automated exposure control; mA and/or kV adjustment per patient size (includes targeted exams where dose is matched to clinical indication); or iterative reconstruction. COMPARISON: CT cervical spin wo con* [id number] 07/18/2024 4:01 PM RADIATION DOSE METRICS: Total DLP (mGy-cm): 278.51 FINDINGS: Bones: Mild degenerative changes of the lower cervical vertebral bodies with endplate spurring at C4-C5 C6 and C7. No definite significant neural foraminal or thecal sac narrowing or effacement. Hyperdensity in the region of the left alar ligament of the dens is stable compared to prior and likely represents chronic calcification. Lungs: Lung apices are normal. Granulomatous calcification. Vasculature: Carotid atheromatous vascular calcifications. Soft tissues: Unremarkable. CT/CT cervical spin wo con* [id number] IMPRESSION: No definite acute fracture.
--- OUTSIDE RECORDS SUMMARY | 2025-03-12 22:21 | XMS_ITS | Patient Health Record ---
Author Organization [facility] Address [address] [place] [address] Care Team Providers Care Termination Clerk Name Role Phone Renee QUINONES, [facility] Primary Care Provider Santhosh Tate Unavailable [phone] Allergies No Known Allergies Reason For Referral No Information Medications Medication SIG (Take, Route, Fr equency, Duration) Notes Start Date End Date Status TRUEplus Pen [place] Active Atorvastatin Calcium Active Lisinopril Active metFORMIN HCl ER Act sheba OXcarbazepine Active Levemir FlexTouch Ac tive amLODIPine Besylate Active Trulicity Active Social History Tobacco Use: Social History Observation Description Date Details (start date - stop date) Never Smoker NA - NA Tobacco Use/Smoking Question Answer Notes Tobacco use: nonsmoker Diabetic Foot Exam Question Answer Notes Lower Extremity Neurological Exam performed: Yes Footwear Evaluation performed: Yes Problems Problem Type SNOMED Code ICD Code Onset Dates Problem Status W/U Status Risk Notes Problem Type 2 diabetes mellitus without complication, without long-term current use of insulin (E11.9) Active confirmed Plan Of Treatment No Information Insurance Providers Payer Name Payer Address Payer Phone Subscriber Number Group Number Insured Name Patient Relationship to Insured Coverage Start Date Coverage End Date [employer]ign[employer] Preferred Medicare HMO [employer] [address] [place] [address] [id number] [place] Self - patient is the insured 2 2 Medical (General) History Medical History History ICD Code diabetes high blood pressure Surgical History Surgery Date(Month/Year) left hallux amputation right second toe amputation
[2025-03-12 22:30] VITALS: BP 137/72; PULSE 78; O2SAT 97
[2025-03-12 23:30] VITALS: BP 138/75; PULSE 78; O2SAT 95
[2025-03-12 23:39] LABS: Hematocrit 36.4 % (37-53); Hemoglobin 11.80 g/dL (11.27-16.99); Mean Corpuscular HGB Conc 32.4 g/dL (30-55); Mean Corpuscular Hemoglobin 29.9 pg (27-33); Mean Corpuscular Volume 92.4 fl (82-101); Nucleated Red Blood Cells % 0 %; Platelet Count 239 10^3/cmm (157-399); Red Blood Count 3.94 10^6/uL (3.85-5.65); White Blood Count 5.33 10^3/uL (3.29-11.43)
[2025-03-12 23:50] LABS: Alanine Aminotransferase 8 U/L (0-41); Albumin Level 4.0 g/dL (3.5-5.2); Alkaline Phosphatase 134 U/L (40-130); Anion Gap 14.2 (5-19); Aspartate Amino Transferase 8 U/L (0-40); Blood Urea Nitrogen 26 mg/dL (8-23); Calcium 9.1 mg/dL (8.5-10.5); Carbon Dioxide 28 mmol/L (22-29); Chloride 101 mmol/L (98-107); Creatinine Clr Calc Pharmacy 64.4848; Globulin 2.9 g/dL (1.3-4.6); Glucose 404 mg/dL (65-115); Osmolality Calculated 310 mOsm/kg (285-295); Potassium 4.2 mmol/L (3.5-5.1); Sodium 139 mmol/L (136-145); Total Protein 6.9 g/dL (6.6-8.7)
[2025-03-13 00:40] LABS: Glucose Urine UA 3+ (Normal); Nitrate Urine Negative (Negative)
[2025-03-13 00:42] LABS: Add Urine Microscopic? YES
[2025-03-13 00:45] LABS: Specific Gravity, Urine 1.037 (1.005-1.030)
[2025-03-13 01:00] VITALS: BP 136/71; PULSE 75; O2SAT 96
[2025-03-13] MEDS: lidocaine-epi 1% PF 1:200,000 30 mL SDV INJECTION (01:00)
--- NOTE | 2025-03-13 01:40 | ED_ITS ---
HPI - Wound/Laceration 2 General: Chief Complaint: Wound/Laceration Stated Complaint: Fall, Large Lac back of head Time Seen by Provider: 03/12/25 22:08 History of Present Illness: 64 yo M with Hx of Alzheimer's dementia, CAD, and DM, on aspirin and clopidogrel, presented after a fall at home with head strike. Event was seen on home camera by ; he appeared to fall, was immediately back up, and bled significantly. No report of LOC. Prehospital/triage glucose reportedly 493. Pt mentions possible additional minor cuts on the scalp. Team discussed notable bleeding likely worsened by antiplatelet therapy. ROS per conversation: denies neck pain; no neurologic symptoms reported. Plan discussed with pt/family to clean wound and assess size, with likely imaging to evaluate for internal head bleeding. Related Data Home Medications ?Medication ?Instructions ?Recorded ?Confirmed aspirin 81 mg tablet,delayed 81 mg PO QAM 11/29/23 release doxepin 10 mg capsule 10 mg PO .At Bedtime PRN ins omnia 07/15/24 03/11/25 insulin glargine 100 unit/mL (3 15 unit SUBCUT QAM 09/0903/11/25 mL) subcutaneous pen (Lantus Solostar U-100 Insulin) Previous Rx's ?Medication ?Instructions ?Recorded diabetic shoes with 3 inserts #1 ea 04/22/24 clopidogrel 75 mg tablet 75 mg PO DAILY #90 tabs 06/17 08/08 rollaid with seat #1 ea 09/05/24 wheelchair #1 ea 09/05/24 galantamine 8 mg tablet 8 mg PO BID #180 tabs oxcarbazepine 300 mg tablet 300 mg PO BID #180 tabs lisinopril 40 mg tablet 40 mg PO DAILY #30 tabs 01/14 12/07 metformin 500 mg tablet,extended See Rx Instructions . Route 02/11/25 release 24 hr .COMPLEX #90 tabs amlodipine 5 mg tablet 5 mg PO DAILY #90 tabs 02/19 citalopram 20 mg tablet 20 mg PO DAILY #90 tabs 02/14 09/09 Allergies Allergy/AdvReac Type Severity Reaction Status Date / Time penicillin G Allergy Mild rash Verified 03/11/25 14:19 [facility] ED 2 [facility]: Medical History (Updated 03/13/25 @ 01:40 by Woodrow Jay MD) Traumatic injury of thoracic and lumbar spinal regions CAD (coronary artery disease) Insomnia disorder Multiple falls Dementia History of encephalopathy History of seizure disorder last seizure 2018 Benign essential HTN History of short term memory loss Surgical History 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 No underlying bony abnormality. Eye: COMMON NORMALS: Equal, round and reactive pupils present, EOMs intact bilaterally and no scleral icterus PUPIL: Yes Equal, round and reactive pupils present Resp: COMMON NORMALS: normal respiratory effort and No retractions Cardio: COMMON NORMALS: regular rate, regular rhythm and No murmurs present (Cardio) RATE: regular rate RHYTHM: regular rhythm GI: COMMON NORMALS: Normal to inspection, nondistended, normoactive bowel sounds present, Soft to palpation and non-tender PALPATION: Yes Soft to palpation Neuro: COMMON NORMALS: patient oriented x3 SENSORIUM/ORIENTATION: Yes alert OTHER: At mental baseline which is compromised due to dementia Skin: COMMON NORMALS: no rashes or lesions noted GENERAL SKIN EXAM: no rashes or lesions noted Procedures Laceration Laceration 1: Site: scalp Side (If applicable): left Size (cm): 2 Description: linear Depth: simple, single layer Local Anesthetic: lidocaine 1% and with epi Amount of anesthesia used (mL): 5 Skin layer closed with: other (yolis x 5) Course 2 Vital Signs: Vital signs: Vital Signs Temperature 98.4 F 03/12/25 22:06 Pulse Rate 75 03/13/25 01:00 Respiratory Rate 18 03/12/25 22:06 Blood Pressure 136/71 03/13/25 01:00 Pulse Oximetry 96 03/13/25 01:00 Oxygen Delivery Me thod Room Air 03/13/25 01:00 MDM - Wound/Laceration Medical Decision Making 64 yo M with dementia, CAD, DM on aspirin and clopidogrel after [id number] but camera-observed fall with head strike and significant scalp bleeding. No reported LOC. EMS/triage glucose 493. PE: 2 cm left parietotemporal scalp laceration with ongoing bleed controlled by pressure dressing; no neck tenderness or painful ROM; no neuro symptoms; not pale; not tachycardic; no distress. DDx focuses on traumatic intracranial hemorrhage due to head trauma while on antiplatelets. Clinically low concern for cervical spine injury given no neck pain, normal ROM, and no neuro symptoms, but baseline dementia complicates history. CT head and neck performed showing no evidence of acute intracranial bleed, skull fracture, or other abnormality. Labs were drawn showing no evidence of SLIME or UTI. Hemostasis achieved with combination of yolis, lidocaine with epinephrine injection, and pressure dressing. Patient will be discharged home in stable and improved condition. Lab Data 03/12/25 21:55 03/12/25 21:55 Radiology Impressions Cervical Spine CT 03/12/25 22:13 IMPRESSION: No definite acute fracture. Head CT 03/12/25 22:13 IMPRESSION: No definite acute intracranial abnormality. Laboratory Results WBC 5.33 10^3/uL (3.29-11.43) 03/12/25 21:55 RBC 3.94 10^6/uL (3.85-5.65) 03/12/25 21:55 Hgb 11.80 g/dL (11.27-16.99) 03/12/25 21:55 Hct 36.4 % (37-53) L 03/12/25 21:55 MCV 92.4 fl (82-101) 03/12/25 21:55 MCH 29.9 pg (27-33) 03/12/25 21:55 MCHC 32.4 g/dL (30-55) 03/12/25 21:55 RDW 14.2 % (12.1-15.1) 03/12/25 21:55 Plt Count 239 10^3/cmm (157-399) 03/12/25 21:55 MPV 10.6 fL (7.4-10.4) H 03/12/25 21:55 Neut % (Auto) 67.0 % 03/12/25 21:55 Lymph % (Auto) 22.5 % 03/12/25 21:55 [place] % (Auto) 6.4 % 03/12/25 21:55 Eos % (Auto) 2.6 % 03/12/25 21:55 Baso % (Auto) 1.1 % 03/12/25 21:55 Neut # (Auto) 3.57 10^3/uL (1.8-7.7) 03/12/25 21:55 Lymph # (Auto) 1.2 10^3/uL (0.8-4.8) 03/12/25 21:55 [place] # (Auto) 0.3 10^3/uL (0.2-0.9) 03/12/25 21:55 Eos # (Auto) 0.1 10^3/uL (0.0-0.8) 03/12/25 21:55 Baso # (Auto) 0.1 10^3/uL (0.0-0.1) 03/12/25 21:55 Nucleated RBC % (auto) 0 % 03/12/25 21:55 Nucleated RBCs # 0.0 /100WBC 03/12/25 21:55 Sodium 139 mmol/L (136-145) 03/12/25 21:55 Potassium 4.2 mmol/L (3.5-5.1) 03/12/25 21:55 Chloride 101 mmol/L (98-107) 03/12/25 21:55 Carbon Dioxide 28 mmol/L (22-29) 03/12/25 21:55 Anion Gap 14.2 (5-19) 03/12/25 21:55 BUN 26 mg/dL (8-23) H 03/12/25 21:55 Creatinine 1.1 mg/dL (0.7-1.2) 03/12/25 21:55 GFR Calculation 67.4 mL/min (90-130) L 03/12/25 21:55 Glucose 404 mg/dL (65-115) H 03/12/25 21:55 Calculated Osmolality 310 mOsm/kg (285-295) H 03/12/25 21:55 Calcium 9.1 mg/dL (8.5-10.5) 03/12/25 21:55 Total Bilirubin 0.2 mg/dL (0.15-1.2) 03/12/25 21:55 AST 8 U/L (0-40) 03/12/25 21:55 ALT 8 U/L (0-41) 03/12/25 21:55 Alkaline Phosphatase 134 U/L (40-130) H 03/12/25 21:55 Total Protein 6.9 g/dL (6.6-8.7) 03/12/25 21:55 Albumin 4.0 g/dL (3.5-5.2) 03/12/25 21: Globulin 2.9 g/dL (1.3-4.6) 03/12/25 21:55 Urine Color Yellow (Yellow) 03/13/25 00:33 Urine Appearance Clear (CLEAR) 03/13/25 00:33 Urine pH 5.0 (5-7) 03/13/25 00:33 Ur Specific Ward 1.037 (1.005-1.030) H 03/13/25 00:33 Urine Protein Trace (Negative) A 03/13/25 00:33 Urine Glucose (UA) 3+ (Normal) H 03/13/25 00:33 Urine Ketones Negative (Negative) 03/13/25 00: Urine Blood Negative (Negative) 03/13/25 00:33 Urine Nitrate Negative (Negative) 03/13/25 00:33 Urine Bilirubin Negative (Negative) 03/13/25 00: Urine Urobilinogen 0.2 mg/dL (Negative) 03/13/25 00:33 Ur Leukocyte Esterase Negative (Negative) 03/13/25 00:33 Urine RBC 0-2 /hpf (0-2) 03/13/25 00:33 Urine WBC 0-5 /hpf (0-5) 03/13/25 00:33 Ur Squamous Epith Cells 0-5 /hpf (0-5) 03/13/25 00:33 Amorphous Sediment Not Reportable 03/13/25 00:33 Urine Bacteria None seen /hpf (NONE) 03/13/25 00:33 Hyaline Casts 0-4 /lpf H 03/13/25 00:33 All radiology interpretation(s) finalized by discharge Discharge Plan Discharge Patient Disposition: Home Clinical Impression: Fall, Laceration of scalp Condition: Stable Prescriptions: No Action (DME) diabetic shoes with 3 inserts See Rx Instructions .Route .MEDSUPPLY Qty: 1 0RF Rx Instructions: As directed to HOME doxepin 10 mg capsule 10 mg PO .At Bedtime PRN (Reason: insomnia) clopidogrel 75 mg tablet 75 mg PO DAILY Qty: 90 3RF galantamine 8 mg tablet 8 mg PO BID Qty: 180 3RF Rx Instructions: administer with AM and PM meals oxcarbazepine 300 mg tablet 300 mg PO BID Qty: 180 3RF (DME) wheelchair See Rx Instructions .Route .MEDSUPPLY Qty: 1 0RF Rx Instructions: As directed (DME) rollaid with seat See Rx Instructions .Route .MEDSUPPLY Qty: 1 0RF Rx Instructions: As directed insulin glargine [Lantus Solostar U-100 Insulin] 100 unit/mL (3 mL) insulin pen 15 unit SUBCUT QAM lisinopril 40 mg tablet 40 mg PO DAILY Qty: 30 1RF metformin 500 mg tablet extended release 24 hr See Rx Instructions .ROUTE .COMPLEX Qty: 90 0RF Rx Instructions: 1,500 mg orally in the morning amlodipine 5 mg tablet 5 mg PO DAILY Qty: 90 1RF citalopram 20 mg tablet 20 mg PO DAILY Qty: 90 0RF Rx Instructions: Patient needs an appt. aspirin 81 mg tablet,delayed release (DR/EC) 81 mg PO QAM Discharge Orders: Discharge ED (Routine); Ordered 03/13/25 Ordered By: Woodrow Jay Referrals: Heri Padilla MD [Primary Care Provider, [facility]] Discharge Diet: Usual diet Discharge Activity: Increase activity as tolerated Patient Instructions: Staple Care (ED), Patient Portal & Shyann Instructions Activity Restrictions/Additional Instructions: Please follow-up either here in the emergency department or with any other medical professional in roughly 1 week for staple removal from your scalp. Please leave the pressure dressing in place for the next 24 hours after which you can gently wash the area with soap and water as you normally would. Print Language: Mongolian Coding Level of Care Code ED Pneumatic Jack Operator for Yana Alcaraz
[2025-03-13 02:09] VITALS: BP 134/74; PULSE 83; RESP 18; O2SAT 98
== END 2025-03-13 02:11 | disposition home or self-care (01) ==
PROVIDERS: Emergency Provider Student in an Organized Health Care Education/Training Program; PCP Family Medicine
DX: S01.01XA Laceration without foreign body of scalp, initial encounter (principal); Z79.02 Long term (current) use of antithrombotics/antiplatelets; Z79.4 Long term (current) use of insulin; Z79.84 Long term (current) use of oral hypoglycemic drugs; Z79.82 Long term (current) use of aspirin; I25.10 Atherosclerotic heart disease of native coronary artery without angina pectoris; I10 Essential (primary) hypertension; W19.XXXA Unspecified fall, initial encounter
CPT/HCPCS: 12001; 70450; 72125; 80053; 81001; 85025; 99284; J9999

== ENCOUNTER 2025-03-18 09:24 | Emergency (ER) | payer MEDICARE, SELFPAY ==
--- OUTSIDE RECORDS SUMMARY | 2018-04-05 13:01 | XMS_ITS | Continuity of Care Document ---
Author Organization [facility] Address [address] [place] [address] Phone Care Team Providers Care Customer Success Representative Name Role Phone Ching Cortes MD Unavailable Unavailable Procedures Procedure Date Craniotomy/brain Abscess-supra 16 Ih Daily Care/expanded Ih Daily Care/expanded Ih Daily Care/expanded Initial Hospital/mod Complexity 016 Advance Directives Directive Yes / No Effective Date File Name No Information Encounters Encounter Description Practice Location Reason(s) For Visit Diagnoses Date Provider Providers Copied on Encounter [facility], [address] [place] [address], [address] [place] [address], tel:[phone] No Information 8 Sebastian Flower. [address] [place] [address], [address] [place] [address] , . tel:[phone] [facility], [address] [place] [address], [address] [place] [address], tel:[phone] [facility] No Information 6 Iván Nunez. [address] [place] [address], [id number] , . tel:[phone] Referring Provider: Enrique Anderson, [address] [place] [address], [id number] . tel:[phone] Ih Daily Care/expanded [facility], [address] [place] [address], [address] [place] [address], tel:[phone] [facility] No Information 6 May Call. [address] [place] [address], [id number] , . [phone] Referring Provider: Brian Heller, [facility] [address] [place] [address], [id number] . tel:[phone] Ih Daily Care/expanded [facility], [address] [place] [address], [id number], tel:[phone] [facility] No Information 6 May Call. [address] [place] [address], [id number] , [place]. [phone] Referring Provider: Brian Heller, [facility] [address] [place] [address], [id number] . tel:[phone] Ih Daily Care/expanded [facility], [address] [place] [address], [id number], tel:[phone] [facility] Tra[facility] No Information 6 [facility] Ulices. [address] [place] [address], [id number] , [place]. tel:[phone] Referring Provider: Brian Heller, [facility] [address] [place] [address], [id number] . tel:[phone] Initial Hospital/mod Complexity [facility], [address] [place] [address], [id number], tel:[phone] [facility] Tra[facility] No Information 6 Gerald Garcia. [address] [place] [address], [id number] , [place]. tel:[phone] Referring Provider: Brian Heller, [facility] [address] [place] [address], [id number] . tel:[phone] Family History Family Member Type Diagnosis Age At Onset No Information Payers Payer name Insurance type Covered green party ID Ermias durham(s) [employer] Preferred CI [id number] Social History Type Description Quantity Date Captured [...]
--- OUTSIDE RECORDS SUMMARY | 2019-05-15 05:45 | XMS_ITS | Continuity of Care Document ---
Author Organization [facility] Address [address] [address] Phone Care Team Providers Care Worsted Winder Name Role Phone Allen Isidro MD Unavailable Unavailabl e Allergies, Adverse Reactions, Alerts Substance Reaction Status Criticality PENICILLIN Active No Information Procedures Procedure Date Computerized Ophthalmic Imaging Retina A Office Consultation New/Estab Patient 60 Min Advance Directives Directive Yes / No Effective Date File Name No Information Encounters Encounter Description Practice Location Reason(s) For Visit Diagnoses Date Provider Providers Copied on Encounter [facility] [place], [address] [place] [address], [id number], tel:[phone] [facility] [place] No Information 9 Dwaine Villa . [address] [place] [address], [id number] . tel:[phone] Office Consultation New/Estab Patient 60 Min [facility], [address] [place] [address], [id number], tel:[phone] [facility] [place] Consult (chief complaint) Type 2 diabetes mellitus w/ mild nonproliferative diabetic retinopathy w/o macular edema of bilateral eyesNuclear sclerotic cataract bilateral 9 Dwaine Villa . [address] [place] [address], [id number] . tel:[phone] Referring Provider: Paul Donohue, [address] [facility] [address], [place], [address]. tel:[phone] Family History Family Member Type Diagnosis Age At Onset Problem (finding) Family history of hyper tension Problem (finding) Family history of Cance r, unknown Problem (finding) Family history of Diabe priyanka mellitus Payers Payer name Insurance type Covered green party ID Ermias durham(s) [place] [facility] [id number] Social History Type Description Quantity Date Captured Comments Alcohol Use Details Unknown Caffeine Use Details Unknown Tobacco Use Status No Information Smoking Status No Information Sex Male Chief Complaint And Reason For Visit No Information Reason For Referral Reason For Referral No Information Plan Of Treatment Date Type Action Status Patient Education Health Information for You: MedlinePl~ completed History Of Present Illness Encounter Date Complaint History Of Prese nt Illness Consult The 58 year old male presents for Consult -Diabetic Retinopathy OUPatient reports that he went to go see Dr. Donohue after being referred by his PCP to have his eyes checked to ensure his diabetes isn't affecting his vision. Patient reports that he feels his vision in the right eye has been worse than his left for about a year. Patient reports that he has some white floaters in the left eye that have been present for about a year. Patient denies any ocular pain or pressure in both eyes. 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
--- OUTSIDE RECORDS SUMMARY | 2025-03-18 09:35 | XMS_ITS | Patient Health Record ---
Author Organization [facility] Address [address] [place] [address] Care Team Providers Care Landscape Foreman Name Role Phone Renee QUINONES, [facility] Primary Care Provider Santhosh Tate Unavailable [phone] Allergies No Known Allergies Reason For Referral No Information Medications Medication SIG (Take, Route, Fr equency, Duration) Notes Start Date End Date Status TRUEplus Pen [place] Active Atorvastatin Calcium Active Lisinopril Active metFORMIN [...] Status W/U Status Risk Notes Problem Type II diabetes mellitus without complication (656833740) Type 2 diabetes mellitus without complication, without long-term current use of insulin (E11.9) Active confirmed Plan Of Treatment No Information Insurance Providers Payer Name Payer Address Payer Phone Subscriber Number Group Number Insured Name Patient Relationship to Insured Coverage Start Date Coverage End Date [employer] Preferred Medicare HMO [employer] [address] [place] [address] [id number] [place] Self - patient is the insured 2 2 Medical (General) History Medical History History ICD Code diabetes high blood pressure Surgical History Surgery Date(Month/Year) left hallux amputation right second toe amputation
[2025-03-18 09:42] VITALS: BP 153/77; PULSE 70; RESP 18; TEMP 36.7; O2SAT 99; BMI 24.4
--- NOTE | 2025-03-18 09:52 | CT_ITS ---
WS: [id number] CT HEAD NONCONTRAST HISTORY: weakness TECHNIQUE: Contiguous axial imaging performed through the brain. Bone and soft tissue windows. Sagittal and coronal reformats reviewed. All CT scans at [facility] use at least one of these dose optimization techniques: automated exposure control; mA and/or kV adjustment per patient size (includes targeted exams where dose is matched to clinical indication); or iterative reconstruction. DLP: 1052.48 mGy.cm COMPARISON: 03/12/2025, 07/18/2024 No acute intracranial hemorrhage, midline shift or mass effect. Focal area of encephalomalacia involving the LEFT frontal lobe with ex vacuo dilatation of the lateral ventricle. Otherwise mild small vessel disease. No additional infarcts. Ventricles: Ex vacuo dilatation anterior horn LEFT frontal horn. Paranasal sinuses: As visualized are clear. Mastoid air cells: Clear. Cerumen in the external capsules. Calvarium and scalp: LEFT frontal craniotomy. Additional recent yolis have been placed in a laceration towards the LEFT parietal vertex. CT/CT head wo con* [id number] IMPRESSION: 1. No acute intracranial hemorrhage or edema. 2. Stable LEFT frontal lobe encephalomalacia with adjacent ex vacuo dilatation of the lateral ventricle. 3. LEFT frontal craniotomy site is stable. 4. Recent laceration towards the high LEFT parietal scalp with yolis.
--- NOTE | 2025-03-18 10:17 | W.ED.GENADLT ---
HPI - General Adult General: Chief complaint: General Medical Stated complaint: fall on the (sent by doc v) Time Seen by Provider: 03/18/25 09:27 Source: patient Mode of arrival: ambulatory Limitations: no limitations History of Present Illness: 64-year-old male had a fall on the and hit his head does have yolis in place and had a laceration he had a head CT that was normal family states he seemed to have a little bit of weakness since then. He states he just has felt weak he denies any vomiting denies any fever denies any diarrhea. Associated symptoms: Deny chest pain, dyspnea, headache(s), nausea, rash or vomiting Related Data Home Medications ?Medication ?Instructions ?Recorded ?Confirmed aspirin 81 mg tablet,delayed 81 mg PO QAM 11/29/23 03/11/25 release doxepin 10 mg capsule 10 mg PO .At Bedtime PRN insomnia 07/15/24 03/11/25 insulin glargine 100 unit/mL (3 15 unit SUBCUT QAM 11/14/24 03/11/25 mL) subcutaneous pen (Lantus Solostar U-100 Insulin) Previous Rx's ?Medication ?Instructions ?Recorded diabetic shoes with 3 inserts #1 ea 04/22/24 clopidogrel 75 mg tablet 75 mg PO DAILY #90 tabs 07/15/24 rollaid with seat #1 09/05/24 wheelchair #1 ea 09/05/24 galantamine 8 mg tablet 8 mg PO BID #180 tabs 09/18/24 oxcarbazepine 300 mg tablet 300 mg PO BID #180 tabs 09/18/24 lisinopril 40 mg tablet 40 mg PO DAILY #30 tabs 02/06/25 metformin 500 mg tablet,extended See Rx Instructions .Route 02/11/25 release 24 hr .COMPLEX #90 tabs amlodipine 5 mg tablet 5 mg PO DAILY #90 tabs 02/19/25 citalopram 20 mg tablet 20 mg PO DAILY #90 tabs 03/06/25 Allergies Allergy/AdvReac Type Severity Reaction Status Date / Time penicillin G Allergy Mild rash Verified 03/11/25 14:19 Review of Systems Const: Reports: fatigue; Denies: fever(s), chills, body aches or change in appetite Card: Denies: chest pain Resp: Denies: dyspnea GI: Denies: abdominal pain, nausea, vomiting or diarrhea Musc: Denies: neck pain or back pain Skin/Breast: Denies: rash Neuro: Denies: headache(s) PFSH ED PFSH: Medical History Traumatic injury of thoracic and lumbar spinal regions CAD (coronary artery disease) Insomnia disorder Multiple falls Dementia History of encephalopathy History of seizure disorder last seizure 2018 Benign essential HTN History of short term memory loss Surgical History 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 Family History Father Heart disease Mother Cancer Social History Smoking and tobacco/nicotine status: never used tobacco/nicotine Alcohol intake: never Substance/Drug Use: never Household members: spouse Housing: House Highest education level completed: 11th Grade Current occupational status: disabled Physical Exam Const: COMMON NORMALS: no acute distress, patient oriented x3 and healthy appearing HENMT: COMMON NORMALS: normocephalic HEAD & SCALP: normocephalic OTHER: Yolis in place wounds clean dry intact Eye: COMMON NORMALS: Equal, round and reactive pupils present and EOMs intact bilaterally PUPIL: Yes Equal, round and reactive pupils present Neck/C-Spine: COMMON NORMALS: full ROM and supple Chest: COMMONS NORMALS: normal inspection of the chest Resp: COMMON NORMALS: normal respiratory effort, No retractions, No use of accessory muscles and clear to auscultation bilaterally AUSCULTATION: clear to auscultation bilaterally Cardio: COMMON NORMALS: regular rate, regular rhythm and No murmurs present (Cardio) RATE: regular rate RHYTHM: regular rhythm Extremity: COMMON NORMALS: normal to inspection and full ROM Neuro: COMMON NORMALS: patient oriented x3, moves all extremities and no focal motor deficits Psych: COMMON NORMALS: mental status grossly normal, Normal thought process present and cooperative THOUGHT PROCESS: Normal thought process present Skin: COMMON NORMALS: no rashes or lesions noted and no wounds GENERAL SKIN EXAM: no rashes or lesions noted Course Vital Signs: Vital signs: Vital Signs Temperature 98.1 F 03/18/25 09:42 Pulse Rate 70 03/18/25 09:42 Respiratory Rate 18 03/18/25 09:42 Blood Pressure 153/77 03/18/25 09:42 Pulse Oximetry 99 03/18/25 09:42 Oxygen Delivery Me thod Room Air 03/18/25 09:42 MDM - General Adult Medical Decision Making Patient presents for some generalized weakness after a fall could be from concussion imaging here is normal lab work is normal did remove his yolis he is well-appearing here stable for discharge. Medical Records I reviewed the patient's medical records. Lab Data I reviewed the patient's lab results. 03/18/25 10:26 03/18/25 10:[address] 03/18/25 09:52 IMPRESSION: 1. No acute intracranial hemorrhage or edema. 2. Stable LEFT frontal lobe encephalomalacia with adjacent ex vacuo dilatation of the lateral ventricle. 3. LEFT frontal craniotomy site is stable. 4. Recent laceration towards the high LEFT parietal scalp with yolis. Laboratory Results WBC 4.19 10^3/uL (3.29-11.43) 03/18/25 10:26 RBC 3.30 10^6/uL (3.85-5.65) L 03/18/25 10:26 Hgb 9.90 g/dL (11.27-16.99) L 03/18/25 10:26 Hct 30.2 % (37-53) L 03/18/25 10:26 MCV 91.5 fl (82-101) 03/18/25 10:26 MCH 30.0 pg (27-33) 03/18/25 10:26 MCHC 32.8 g/dL (30-55) 03/18/25 10:26 RDW 14.2 % (12.1-15.1) 03/18/25 10:26 Plt Count 221 10^3/cmm (157-399) 03/18/25 10:26 MPV 10.4 fL (7.4-10.4) 03/18/25 10:26 Neut % (Auto) 62.1 % 03/18/25 10:26 Lymph % (Auto) 27.2 % 03/18/25 10:26 [place] % (Auto) 7.2 % 03/18/25 10:26 Eos % (Auto) 2.1 % 03/18/25 10:26 Baso % (Auto) 1.2 % 03/18/25 10:26 Neut # (Auto) 2.60 10^3/uL (1.8-7.7) 03/18/25 10:26 Lymph # (Auto) 1.1 10^3/uL (0.8-4.8) 03/18/25 10:26 [place] # (Auto) 0.3 10^3/uL (0.2-0.9) 03/18/25 10:26 Eos # (Auto) 0.1 10^3/uL (0.0-0.8) 03/18/25 10:26 Baso # (Auto) 0.1 10^3/uL (0.0-0.1) 03/18/25 10:26 Nucleated RBC % (auto) 0 % 03/18/25 10:26 Nucleated RBCs # 0.0 /100WBC 03/18/25 10:26 Sodium 138 mmol/L (136-145) 03/18/25 10:26 Potassium 4.5 mmol/L (3.5-5.1) 03/18/25 10:26 Chloride 101 mmol/L (98-107) 03/18/25 10:26 Carbon Dioxide 28 mmol/L (22-29) 03/18/25 10:26 Anion Gap 13.5 (5-19) 03/18/25 10:26 BUN 22 mg/dL (8-23) 03/18/25 10:26 Creatinine 0.9 mg/dL (0.7-1.2) 03/18/25 10:26 GFR Calculation 85.0 mL/min (90-130) L 03/18/25 10:26 Glucose 195 mg/dL (65-115) H 03/18/25 10:26 Calculated Osmolality 295 mOsm/kg (285-295) 03/18/25 10:26 Calcium 8.9 mg/dL (8.5-10.5) 03/18/25 10:26 Total Bilirubin 0.2 mg/dL (0.15-1.2) 03/18/25 10:26 AST 9 U/L (0-40) 03/18/25 10:26 ALT 7 U/L (0-41) 03/18/25 10:26 Alkaline Phosphatase 120 U/L (40-130) 03/18/25 10:26 Total Protein 6.5 g/dL (6.6-8.7) L 03/18/25 10:26 Albumin 3.9 g/dL (3.5-5.2) 03/18/25 10:26 Globulin 2.6 g/dL (1.3-4.6) 03/18/25 10:26 All radiology interpretation(s) finalized by discharge Discharge Plan Discharge Patient Disposition: Home Clinical Impression: Generalized weakness, Removal of yolis Condition: Stable Prescriptions: No Action (DME) diabetic shoes with 3 inserts See Rx Instructions .Route .MEDSUPPLY Qty: 1 0RF Rx Instructions: As directed to HOME doxepin 10 mg capsule 10 mg PO .At Bedtime PRN (Reason: insomnia) clopidogrel 75 mg tablet 75 mg PO DAILY Qty: 90 3RF galantamine 8 mg tablet 8 mg PO BID Qty: 180 3RF Rx Instructions: administer with AM and PM meals oxcarbazepine 300 mg tablet 300 mg PO BID Qty: 180 3RF (DME) wheelchair See Rx Instructions .Route .MEDSUPPLY Qty: 1 0RF Rx Instructions: As directed (DME) rollaid with seat See Rx Instructions .Route .MEDSUPPLY Qty: 1 0RF Rx Instructions: As directed insulin glargine [Lantus Solostar U-100 Insulin] 100 unit/mL (3 mL) insulin pen 15 unit SUBCUT QAM lisinopril 40 mg tablet 40 mg PO DAILY Qty: 30 1RF metformin 500 mg tablet extended release 24 hr See Rx Instructions .ROUTE .COMPLEX Qty: 90 0RF Rx Instructions: 1,500 mg orally in the morning amlodipine 5 mg tablet 5 mg PO DAILY Qty: 90 1RF citalopram 20 mg tablet 20 mg PO DAILY Qty: 90 0RF Rx Instructions: Patient needs an appt. aspirin 81 mg tablet,delayed release (DR/EC) 81 mg PO QAM Discharge Orders: Discharge ED (Routine); Ordered 03/18/25 Ordered By: Leanne Fernandez Referrals: Heri Padilla MD [Primary Care Provider, [facility]] - 4-7 days Discharge Diet: Advance as tolerated Discharge Activity: Resume usual activity Patient Instructions: Weakness (ED) Print Language: Bermudian Coding Level of Care Code ED Business Process Lead for Yana Alcaraz
[2025-03-18 10:37] LABS: Hematocrit 30.2 % (37-53); Hemoglobin 9.90 g/dL (11.27-16.99); Mean Corpuscular HGB Conc 32.8 g/dL (30-55); Mean Corpuscular Hemoglobin 30.0 pg (27-33); Mean Corpuscular Volume 91.5 fl (82-101); Nucleated Red Blood Cells % 0 %; Platelet Count 221 10^3/cmm (157-399); Red Blood Count 3.30 10^6/uL (3.85-5.65); White Blood Count 4.19 10^3/uL (3.29-11.43)
[2025-03-18 10:55] LABS: Alanine Aminotransferase 7 U/L (0-41); Albumin Level 3.9 g/dL (3.5-5.2); Alkaline Phosphatase 120 U/L (40-130); Anion Gap 13.5 (5-19); Aspartate Amino Transferase 9 U/L (0-40); Blood Urea Nitrogen 22 mg/dL (8-23); Calcium 8.9 mg/dL (8.5-10.5); Carbon Dioxide 28 mmol/L (22-29); Chloride 101 mmol/L (98-107); Creatinine Clr Calc Pharmacy 74.5588; Globulin 2.6 g/dL (1.3-4.6); Glucose 195 mg/dL (65-115); Osmolality Calculated 295 mOsm/kg (285-295); Potassium 4.5 mmol/L (3.5-5.1); Sodium 138 mmol/L (136-145); Total Protein 6.5 g/dL (6.6-8.7)
[2025-03-18 11:00] VITALS: BP 138/76; O2SAT 98
[2025-03-18 11:07] VITALS: BP 138/76; PULSE 71; RESP 16; O2SAT 100
== END 2025-03-18 11:08 | disposition home or self-care (01) ==
PROVIDERS: Emergency Provider Emergency Medicine; PCP Family Medicine
DX: R53.1 Weakness (principal); Z48.02 Encounter for removal of sutures; Z79.02 Long term (current) use of antithrombotics/antiplatelets; Z79.84 Long term (current) use of oral hypoglycemic drugs; Z79.82 Long term (current) use of aspirin; I25.10 Atherosclerotic heart disease of native coronary artery without angina pectoris; I10 Essential (primary) hypertension
CPT/HCPCS: 36415; 36416; 70450; 80053; 82962; 85025; 99284

== ENCOUNTER → 2025-04-23 14:41 | Outpatient (BNVA) | payer MEDICARE, SELFPAY | PROVIDERS: PCP Family Medicine; Visit Provider Family Medicine | DX: E11.40 Type 2 diabetes mellitus with diabetic neuropathy, unspecified (principal) | CPT/HCPCS: 80053; 83036; 85025 ==

== ENCOUNTER → 2025-05-21 14:25 | Outpatient (BNVA) | payer MEDICARE, OTHER, SELFPAY | PROVIDERS: PCP Family Medicine; Visit Provider Podiatrist Foot & Ankle Surgery | DX: E11.8 Type 2 diabetes mellitus with unspecified complications (principal); L60.3 Nail dystrophy; L84 Corns and callosities; I73.9 Peripheral vascular disease, unspecified; E11.9 Type 2 diabetes mellitus without complications; Z79.84 Long term (current) use of oral hypoglycemic drugs; Z79.4 Long term (current) use of insulin | CPT/HCPCS: 11721 ==

== ENCOUNTER 2025-05-27 09:23 | Emergency (ER) | payer MEDICARE, OTHER, SELFPAY ==
--- NOTE | 2025-05-27 09:26 | ECG_ITS ---
[facility]: 2025-05-27 Pat Name: Akhil Galloway Department: Room: Gender: Male Outside [employer] Sales: : 1960 Requested By: Wilfrido Anderson Order Number: [id number] Libby MD: Kuldeep Zimmerman M.D. Measurements Intervals [place] Rate: 61 P: 26 MO: 155 QRS: 4 QRSD: 96 T: 93 QT: 384 QTc: 389 Interpretive Statements SINUS RHYTHM NONSPECIFIC T-WAVE ABNORMALITY Compared to ECG 03/14/2024 14:58:58 T-wave abnormality now present Myocardial infarct finding no longer present Electronically Signed On 05-27-2025 20:06:22 ASSOCIATE SPA DIRECTOR by Kuldeep Zimmerman M.D. [email or web address]
--- NOTE | 2025-05-27 09:26 | CT_ITS ---
WS: [id number] CT HEAD NONCONTRAST HISTORY: Symptoms of acute stroke TECHNIQUE: Contiguous axial imaging performed through the brain. Bone and soft tissue windows. Sagittal and coronal reformats reviewed. All CT scans at [facility] use at least one of these dose optimization techniques: automated exposure control; mA and/or kV adjustment per patient size (includes targeted exams where dose is matched to clinical indication); or iterative reconstruction. DLP: 1273.58 mGy COMPARISON: 03/18/2025 No acute intracranial hemorrhage, midline shift or mass effect. Mild cerebral and cerebellar atrophy. Large area of encephalomalacia involving the LEFT frontal lobe from a prior infarct. Ex vacuo dilatation of the anterior horn lateral ventricle. Mild small vessel disease. Prior lacunar infarct LEFT basal ganglia. Ventricles: Normal size with no hydrocephalus. Paranasal sinuses: As visualized are clear. Mastoid air cells: Well pneumatized. Small amount of cerumen in the LEFT external auditory canal. Calvarium and scalp: LEFT frontal craniotomy site. CT/CT head thrombolytic 78075 IMPRESSION: 1. No acute intracranial hemorrhage or edema. 2. Stable LEFT frontal lobe encephalomalacia with adjacent ex vacuo dilatation of the lateral ventricle. 3. LEFT frontal craniotomy site is stable.
[2025-05-27 09:34] VITALS: BP 131/65; PULSE 70; RESP 18; TEMP 36.7; O2SAT 100
--- OUTSIDE RECORDS SUMMARY | 2025-05-27 09:39 | XMS_ITS | Clinical Summary ---
Author Organization [employer] Address [address] [facility] [facility] Attn: [place] [address] Care Team Providers Care Last Scourer Name Role Phone Unavailable Primary Care Provider Unavailabl e Encounters Date Type Department Care Team Description 03/25/2025 Patient Outreach [facility] Visual Manager Management [address], [address] [place] [address] Yumi Mott Medication Problem (Medication Adherence Review ) from Last 3 Months Social History Tobacco Use Types Packs/Day Years Used Date Smoking Tobacco: Never Assessed Sex and Gender Information Value Date Recorded Sex Assigned at Not on file Legal Sex Male 10:58 AM CDT Gender Identity Not on file Sexual Orientation Not on file Plan of Treatment Health Maintenance Due Date Last Done Comments DTAP/TDAP/TD VACCINES (1 - Tdap) 1979 COLORECTAL SCREENING 2005 Colorectal Cancer Screening 2005 FIT-DNA Q 3 years 2005 FIT/FOBT Q 1 year 2005 Flex Sig/CT Colonography Q 5 years 2005 PNEUMOCOCCAL VACCINE 50+ YEARS (1 of 1 - PCV) 05/24/20 ZOSTER VACCINE (1 of 2) 2010 INFLUENZA VACCINE (#1) 2025 RSV VACCINE (60+ or ) (1 - 1-dose 75+ series) 2035
--- OUTSIDE RECORDS SUMMARY | 2025-05-27 09:39 | XMS_ITS | Patient Health Record ---
Author Organization [facility] Address [address] [place] [address] Care Team Providers Care Chief Technical Officer Name Role Phone Renee QUINONES, [facility] Primary Care Provider Santhosh Tate Unavailable [phone] Allergies No Known Allergies Reason For Referral No Information Medications Medication SIG (Take, Route, Fr equency, Duration) Notes Start Date End Date Status TRUEplus Pen [place] Active Atorvastatin Calcium Active Lisinopril Active metFORMIN [...] Problem Type II diabetes mellitus without complication (357197190) Type 2 diabetes mellitus without complication, without long-term current use of insulin (E11.9) Active confirmed Plan Of Treatment No Information Insurance Providers Payer Name Payer Address Payer Phone Subscriber Number Group Number Insured Name Patient Relationship to Insured Coverage Start Date Coverage End Date [employer] Preferred Medicare HMO [employer] [address] [place] [address] [id number] [place] Self - patient is the insured 2 2 Medical (General) History Medical History History ICD Code diabetes high blood pressure Surgical History Surgery Date(Month/Year) left hallux amputation right second toe amputation
[2025-05-27 10:09] LABS: Hematocrit 31.9 % (37-53); Hemoglobin 10.40 g/dL (11.27-16.99); Mean Corpuscular HGB Conc 32.6 g/dL (30-55); Mean Corpuscular Hemoglobin 28.3 pg (27-33); Mean Corpuscular Volume 86.9 fl (82-101); Nucleated Red Blood Cells % 0 %; Platelet Count 225 10^3/cmm (157-399); Red Blood Count 3.67 10^6/uL (3.85-5.65); White Blood Count 7.28 10^3/uL (3.29-11.43)
[2025-05-27 10:19] LABS: INR 0.90 (0.8-1.2); Prothrombin Time 12.80 SECONDS (12.1-14.9)
[2025-05-27 10:20] LABS: Partial Thromboplastin Time 25.4 SECONDS (23.9-36.7)
--- NOTE | 2025-05-27 10:23 | PC.PHAR ---
Pts' family member keeps a med list on her phone. Pt no longer taking Atorvastatin 40mg daily last fill 11/10/24 90ds
[2025-05-27 10:25] LABS: Alanine Aminotransferase 7 U/L (0-41); Albumin Level 4.0 g/dL (3.5-5.2); Alkaline Phosphatase 90 U/L (40-130); Anion Gap 18.5 (5-19); Aspartate Amino Transferase 11 U/L (0-40); Blood Urea Nitrogen 26 mg/dL (8-23); Calcium 8.9 mg/dL (8.5-10.5); Carbon Dioxide 25 mmol/L (22-29); Chloride 99 mmol/L (98-107); Globulin 2.6 g/dL (1.3-4.6); Glucose 109 mg/dL (65-115); Osmolality Calculated 291 mOsm/kg (285-295); Potassium 4.5 mmol/L (3.5-5.1); Sodium 138 mmol/L (136-145); Total Protein 6.6 g/dL (6.6-8.7)
--- NOTE | 2025-05-27 10:30 | W.ED.WEAKNES ---
HPI - Weakness General: Chief complaint: Weakness Stated complaint: fall, stroke like symptoms Time Seen by Provider: 05/27/25 09:25 History of Present Illness: 65-year-old male history of dementia reports last known well at 530 when his was with him he fell she found him around 630 he had difficult time moving his right leg all of this is resolved. He has dementia and has previous had a craniotomy. He has some difficulty speech he said his speech was much off of the baseline at that time. Since then he is completely resolved back to his baseline she feels he is totally normal for his baseline again. NIH done initially upon arrival. Associated symptoms: Denies chest pain, chills, dysuria or fever(s) Related Data Home Medications ?Medication ?Instructions ?Recorded ?Confirmed aspirin 81 mg tablet,delayed 81 mg PO QAM 11/29/23 05/27/25 release metformin 500 mg tablet,extended 1,500 mg PO QAM 05/27/25 05/27/25 release 24 hr trazodone 50 mg tablet 25 mg PO BEDTIME 05/27/25 05/27/25 Previous Rx's ?Medication ?Instructions ?Recorded diabetic shoes with 3 inserts #1 ea 04/22/24 rollaid with seat #1 ea 09/05/24 wheelchair #1 ea 09/05/24 amlodipine 5 mg tablet 5 mg PO DAILY #90 tabs 04/23/25 citalopram 20 mg tablet 20 mg PO DAILY #90 tabs 04/23/25 clopidogrel 75 mg tablet 75 mg PO DAILY #90 tabs 04/23/25 galantamine 8 mg tablet 8 mg PO BID #180 tabs 04/23/25 lisinopril 40 mg tablet 40 mg PO DAILY #30 tabs 04/23/25 oxcarbazepine 300 mg tablet 300 mg PO BID #180 tabs 04/23/25 insulin glargine 100 unit/mL (3 20 unit (0.2 mL) SUBCUT QAM #15 mL 04/24/25 mL) subcutaneous pen (Lantus Solostar U-100 Insulin) blood sugar diagnostic (Blood #200 ea 04/30/25 Glucose Test strips) blood-glucose meter #1 ea 04/30/25 lancets #200 ea 04/30/25 atorvastatin 40 mg tablet (Lipitor) 40 mg PO DAILY #20 tabs 05/27/25 Allergies Allergy/AdvReac Type Severity Reaction Status Date / Time penicillin G Allergy Mild rash Verified 05/21/25 13:48 Review of Systems Const: Denies: fever(s) or chills Card: Denies: chest pain Resp: Denies: dyspnea GI: Denies: abdominal pain : Denies: dysuria, urinary frequency or urinary urgency Musc: Denies: neck pain or back pain Skin/Breast: Denies: rash PFSH ED PFSH: Medical History Traumatic injury of thoracic and lumbar spinal regions CAD (coronary artery disease) Insomnia disorder Multiple falls Dementia History of encephalopathy History of seizure disorder last seizure 2018 Benign essential HTN History of short term memory loss Surgical History 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 Family History Father Heart disease Mother Cancer Social History Smoking and tobacco/nicotine status: never used tobacco/nicotine Alcohol intake: never Substance/Drug Use: never Household members: spouse Housing: House Highest education level completed: 11th Grade Current occupational status: disabled Physical Exam Const: COMMON NORMALS: no acute distress GENERAL APPEARANCE: cooperative and comfortable ORIENTATION/CONSCIOUSNESS: Yes awake, Yes oriented to person, Yes oriented to place and Yes oriented to time HENMT: COMMON NORMALS: normocephalic, atraumatic and hearing grossly normal bilaterally HEAD & SCALP: normocephalic and atraumatic Resp: COMMON NORMALS: normal respiratory effort, No retractions, No use of accessory muscles and clear to auscultation bilaterally AUSCULTATION: clear to auscultation bilaterally Cardio: COMMON NORMALS: regular rate, regular rhythm and No murmurs present (Cardio) RATE: regular rate RHYTHM: regular rhythm GI: COMMON NORMALS: Soft to palpation and No hepatosplenomegaly present AUSCULTATION: Yes normoactive bowel sounds PALPATION: Yes Soft to palpation, No Tenderness to palpation present (GI), No Guarding due to palpation present (GI) and Yes No hepatosplenomegaly present Extremity: COMMON NORMALS: normal to inspection, capillary refill normal, no clubbing, cyanosis or edema, no calf tenderness and no pedal edema Neuro: SENSORIUM/ORIENTATION: Yes oriented to person, Yes oriented to place and Yes oriented to time Skin: COMMON NORMALS: no rashes or lesions noted GENERAL SKIN EXAM: no rashes or lesions noted Course Vital Signs: Vital signs: Vital Signs Temperature 98.1 F 05/27/25 09:34 Pulse Rate 68 05/27/25 11:10 Respiratory Rate 18 05/27/25 09:34 Blood Pressure 149/70 05/27/25 11:10 Pulse Oximetry 97 05/27/25 11:10 Oxygen Delivery Me thod Room Air 05/27/25 09:34 MDM - Weakness Medical Decision Making Patient has NIH of 2 some of which may be residual from previous episodes. He states he feels like he is back at his baseline now and has no symptoms at all. Based on his description of his symptoms suspect he may have had a TIA. CT head was negative. He is not a candidate for any interventions at this point. He is already on dual platelet therapy which he should continue will add atorvastatin at 40 mg daily. Discharge patient home and have him follow-up with primary care to monitor his blood pressure. And will refer to neurology as well. Lab Data 05/27/25 09:56 05/27/25 09:[address] 05/27/25 09:26 IMPRESSION: 1. No acute intracranial hemorrhage or edema. 2. Stable LEFT frontal lobe encephalomalacia with adjacent ex vacuo dilatation of the lateral ventricle. 3. LEFT frontal craniotomy site is stable. Laboratory Results WBC 7.28 10^3/uL (3.29-11.43) 05/27/25 09:56 RBC 3.67 10^6/uL (3.85-5.65) L 05/27/25 09:56 Hgb 10.40 g/dL (11.27-16.99) L 05/27/25 09:56 Hct 31.9 % (37-53) L 05/27/25 09:56 MCV 86.9 fl (82-101) 05/27/25 09:56 MCH 28.3 pg (27-33) 05/27/25 09:56 MCHC 32.6 g/dL (30-55) 05/27/25 09:56 RDW 13.5 % (12.1-15.1) 05/27/25 09:56 Plt Count 225 10^3/cmm (157-399) 05/27/25 09:56 MPV 10.1 fL (7.4-10.4) 05/27/25 09:56 Neut % (Auto) 80.7 % 05/27/25 09:56 Lymph % (Auto) 12.5 % 05/27/25 09:56 [place] % (Auto) 4.9 % 05/27/25 09:56 Eos % (Auto) 1.0 % 05/27/25 09:56 Baso % (Auto) 0.5 % 05/27/25 09:56 Neut # (Auto) 5.87 10^3/uL (1.8-7.7) 05/27/25 09:56 Lymph # (Auto) 0.9 10^3/uL (0.8-4.8) 05/27/25 09:56 [place] # (Auto) 0.4 10^3/uL (0.2-0.9) 05/27/25 09:56 Eos # (Auto) 0.1 10^3/uL (0.0-0.8) 05/27/25 09:56 Baso # (Auto) 0.0 10^3/uL (0.0-0.1) 05/27/25 09:56 Nucleated RBC % (auto) 0 % 05/27/25 09:56 Nucleated RBCs # 0.0 /100WBC 05/27/25 09:56 PT 12.80 SECONDS (12.1-14.9) 05/27/25 09:56 INR 0.90 (0.8-1.2) 05/27/25 09:56 APTT 25.4 SECONDS (23.9-36.7) 05/27/25 09:56 Sodium 138 mmol/L (136-145) 05/27/25 09:56 Potassium 4.5 mmol/L (3.5-5.1) 05/27/25 09:56 Chloride 99 mmol/L (98-107) 05/27/25 09:56 Carbon Dioxide 25 mmol/L (22-29) 05/27/25 09:56 Anion Gap 18.5 (5-19) 05/27/25 09:56 BUN 26 mg/dL (8-23) H 05/27/25 09:56 Creatinine 1.2 mg/dL (0.7-1.2) 05/27/25 09:56 GFR Calculation 60.8 mL/min (90-130) L 05/27/25 09:56 Glucose 109 mg/dL (65-115) 05/27/25 09:56 POC Glucose 106 mg/dL (70-110) 05/27/25 09:56 Calculated Osmolality 291 mOsm/kg (285-295) 05/27/25 09:56 Calcium 8.9 mg/dL (8.5-10.5) 05/27/25 09:56 Total Bilirubin 0.2 mg/dL (0.15-1.2) 05/27/25 09:56 AST 11 U/L (0-40) 05/27/25 09:56 ALT 7 U/L (0-41) 05/27/25 09:56 Alkaline Phosphatase 90 U/L (40-130) 05/27/25 09:56 Total Protein 6.6 g/dL (6.6-8.7) 05/27/25 09:56 Albumin 4.0 g/dL (3.5-5.2) 05/27/25 09:56 Globulin 2.6 g/dL (1.3-4.6) 05/27/25 09:56 Urine Color Yellow (Yellow) 05/27/25 10:24 Urine Appearance Clear (CLEAR) 05/27/25 10:24 Urine pH 5.5 (5-7) 05/27/25 10:24 Ur Specific [place] 1.015 (1.005-1.030) 05/27/25 10:24 Urine Protein 1+ (Negative) A 05/27/25 10:24 Urine Glucose (UA) Negative (Normal) 05/27/25 10:24 Urine Ketones Negative (Negative) 05/27/25 10:24 Urine Blood Negative (Negative) 05/27/25 10:24 Urine Nitrate Negative (Negative) 05/27/25 10:24 Urine Bilirubin Negative (Negative) 05/27/25 10:24 Urine Urobilinogen 1.0 mg/dL (Negative) 05/27/25 10:24 Ur Leukocyte Esterase Negative (Negative) 05/27/25 10:24 Urine RBC 0-2 /hpf (0-2) 05/27/25 10:24 Urine WBC 6-10 /hpf (0-5) 05/27/25 10:24 Ur Squamous Epith Cells 0-5 /hpf (0-5) 05/27/25 10:24 Amorphous Sediment Not Reportable 05/27/25 10:24 Urine Bacteria None seen /hpf (NONE) 05/27/25 10:24 Hyaline Casts 5.36 /lpf 05/27/25 10:24 Urine Sperm 1+ /hpf 05/27/25 10:24 Urine Opiates Screen Negative ng/mL (Negative) 05/27/25 10:24 Ur Barbiturates Screen Negative ng/mL (Negative) 05/27/25 10:24 Ur Phencyclidine Scrn Negative ng/mL (Negative) 05/27/25 10:24 Ur Amphetamines Screen Negative ng/mL (Negative) 05/27/25 10:24 U Benzodiazepines Scrn Negative ng/mL (Negative) 05/27/25 10:24 Urine Cocaine Screen Negative ng/mL (Negative) 05/27/25 10:24 U Marijuana (THC) Screen Negative ng/mL (Negative) 05/27/25 10:24 All radiology interpretation(s) finalized by discharge Discharge Plan Discharge Patient Disposition: Home Clinical Impression: TIA (transient ischemic attack) Condition: Stable Prescriptions: New atorvastatin [Lipitor] 40 mg tablet 40 mg PO DAILY Qty: 20 0RF No Action amlodipine 5 mg tablet 5 mg PO DAILY Qty: 90 1RF citalopram 20 mg tablet 20 mg PO DAILY Qty: 90 0RF clopidogrel 75 mg tablet 75 mg PO DAILY Qty: 90 3RF galantamine 8 mg tablet 8 mg PO BID Qty: 180 3RF lisinopril 40 mg tablet 40 mg PO DAILY Qty: 30 1RF oxcarbazepine 300 mg tablet 300 mg PO BID Qty: 180 3RF insulin glargine [Lantus Solostar U-100 Insulin] 100 unit/mL (3 mL) insulin pen 20 unit SUBCUT QAM Qty: 15 3RF (DME) diabetic shoes with 3 inserts See Rx Instructions .Route .MEDSUPPLY Qty: 1 0RF Rx Instructions: As directed to HOME (DME) wheelchair See Rx Instructions .Route .MEDSUPPLY Qty: 1 0RF Rx Instructions: As directed (DME) rollaid with seat See Rx Instructions .Route .MEDSUPPLY Qty: 1 0RF Rx Instructions: As directed (DME) blood-glucose meter Misc See Rx Instructions .MEDSUPPLY Qty: 1 0RF Rx Instructions: Use as directed for checking blood sugar. once daily (DME) Blood Glucose Test Strip See Rx Instructions .MEDSUPPLY Qty: 200 12RF Rx Instructions: Use as directed with glucometer to check blood sugar. once daily (DME) lancets Misc See Rx Instructions .MEDSUPPLY Qty: 200 12RF Rx Instructions: Use as directed to prick skin for blood sugar checks. once daily trazodone 50 mg tablet 25 mg PO BEDTIME metformin 500 mg tablet extended release 24 hr 1,500 mg PO QAM aspirin 81 mg tablet,delayed release (DR/EC) 81 mg PO QAM Discharge Orders: Discharge ED (Routine); Ordered 05/27/25 Ordered By: Wilfrido Ahumada Referrals: Heri Padilla MD [Primary Care Provider, Family Practice] Discharge Diet: Usual diet Discharge Activity: Increase activity as tolerated Patient Instructions: Opioid Safety, Pain Management, Patient Portal & Shyann Instructions Activity Restrictions/Additional Instructions: Thank you for choosing [facility] your healthcare needs today. It is very important that you follow up as instructed or that you return to the Emergency Department should you have concerns or if your condition changes or worsens in any way. Emergency department visits are focused on emergent conditions, in some cases you may require further evaluation on an outpatient basis. You were seen in the emergency room with a brief episode of difficulty speaking and moving your leg your symptoms had resolved by the time you are he arrived here a CT of your head was negative. Appears you had a brief TIA. Continue the clopidogrel and aspirin will add atorvastatin and have you follow-up with neurology. Follow-up with your primary care doctor within the next week to reevaluate and continue to monitor your blood pressure. (Please note that included in your discharge packet is information concerning opioid safety and pain management. This information is given to all patients were discharged from the ER regardless of their discharge diagnosis or the medicines they usually take or are prescribed.) Stand Alone Forms: Work/School Release Print Language: Slovenian Coding Level of Care Code ED Material Attendant for Yana Alcaraz NIH stroke score NIHSS Level Of Consciousness - 1a: 0 Level Of Consciousness Questions - 1b: Both Correct Level Of Consciousness Commands - 1c: Both Correct Best Gaze - 2: Normal Visual [place] - 3: No Visual Loss Facial Palsy - 4: Normal Motor Arm Right - 5: No Drift Motor Arm Left - 5: No Drift Motor Leg Right - 6: No Drift Motor Leg Left - 6: No Drift Limb Ataxia - 7: Absent Sensory - 8: Normal Best Language - 9: Mild/Moderate Aphasia Dysarthia - 10: Mild/Moderate Dysarthia Extinction And Inattention - 11: 0 Score Total Score: 2
[2025-05-27 10:37] LABS: Glucose Urine UA Negative (Normal); Nitrate Urine Negative (Negative); Specific Gravity, Urine 1.015 (1.005-1.030)
[2025-05-27 10:40] LABS: Add Urine Microscopic? YES
[2025-05-27 10:44] LABS: PCP Screen Urine Negative (Negative)
[2025-05-27 10:52] LABS: UA Slide Review UA Slide Review Perf
[2025-05-27 11:10] VITALS: BP 149/70; PULSE 68; O2SAT 97
== END 2025-05-27 11:13 | disposition home or self-care (01) ==
PROVIDERS: Emergency Provider Family Medicine; PCP Family Medicine
DX: G45.9 Transient cerebral ischemic attack, unspecified (principal); Z79.02 Long term (current) use of antithrombotics/antiplatelets; Z79.4 Long term (current) use of insulin; Z79.84 Long term (current) use of oral hypoglycemic drugs; Z79.82 Long term (current) use of aspirin; I25.10 Atherosclerotic heart disease of native coronary artery without angina pectoris; I10 Essential (primary) hypertension
CPT/HCPCS: 36415; 36416; 70450; 80053; 80306; 81001; 82962; 85025; 85610; 85730; 93005; 99284